=== PATIENT | female | born 1935 | race Caucasian/White ===

== ENCOUNTER 2017-06-06 07:14 | Inpatient (IN) | payer OTHER, MEDICARE ==
[2017-06-06] VITALS (15 sets, daily range): BP systolic 111–148; BP diastolic 60–91; PULSE 51–100; RESP 16–20; TEMP 95.7–97.7; O2SAT 93–98
[~2017-06-06] VITALS: Ht 162.6 cm; Wt 58.9 kg
[~2017-06-06 07:14] MED LIST: ASPI81TA82 PO; CEFU1TAB43 PO; COUM2TAB PO; FOLI1 PO; HYDR12.56 PO; METO50TA PO; NORV2.5T11 PO; SIMV20 PO; THIA100T PO
[2017-06-06] MEDS ORDERED: AMLO5 PO (07:32)
[2017-06-06] MEDS ORDERED: ZOCO20TA PO (07:32)
[2017-06-06] MEDS ORDERED: WARF4TAB51 PO (07:32)
[2017-06-06 07:44] LABS: AUTOMATED NEUTROPHIL # 7.3 TH/MM3 (1.8-7.7); BASOPHIL # 0.2 TH/MM3 (0-0.2); BASOPHIL % 2.5 % (0.0-2.0); EOSINOPHIL # 0.1 TH/MM3 (0-0.4); HEMATOCRIT 37.1 % (35.0-46.0); HEMO FLAGS DIFF FINAL; LYMPH % 15.8 % (9.0-44.0); LYMPHOCYTE # 1.5 TH/MM3 (1.0-4.8); MEAN CELL VOLUME 90.3 FL (80.0-100.0); MEAN CORPUSCULAR HEMOGLOBIN 29.2 PG (27.0-34.0); MEAN CORPUSCULAR HGB CONC 32.4 % (32.0-36.0); MONO % 6.4 % (0.0-8.0); NEUT % 74.3 % (16.0-70.0); PLATELET COUNT 278 TH/MM3 (150-450); RED BLOOD COUNT 4.11 MIL/MM3 (4.00-5.30); RED CELL DISTRIBUTION WIDTH 14.6 % (11.6-17.2); WHITE BLOOD COUNT 9.7 TH/MM3 (4.0-11.0)
[2017-06-06 07:51] LABS: CHLORIDE 92 MEQ/L (98-107); POTASSIUM 3.9 MEQ/L (3.5-5.1); SODIUM (NA) 131 MEQ/L (136-145)
[2017-06-06 07:55] LABS: ANION GAP 5 MEQ/L (5-15); BICARBONATE 33.9 MEQ/L (21.0-32.0); BLOOD UREA NITROGEN 36 MG/DL (7-18)
[2017-06-06 07:57] LABS: APTT (PATIENT) 59.9 SEC (24.3-30.1); PROTHROMBIN TIME - PATIENT 157.1 SEC (9.8-11.6)
--- NOTE | 2017-06-06 07:57 | PD ---
HPI Chief Complaint: Abnormal Results Time Seen by Provider: 07:31 Travel History International Travel<30 days: No Contact w/Intl Traveler<30days: No Traveled to known affect area: No History of Present Illness HPI Patient is an 82 year old female who comes in with her because she was told by her doctor that her INR was high. She is on Coumadin due to heart surgery she had in the past, per patient. She says she is also concerned that she may have an infection of her right leg. She says both legs have been red since her surgery 8 years ago, but recently she has had pain and oozing from the right leg. She did fall yesterday and the paramedics came to assess her, but she chose not to come to the hospital. She says she falls often. She reports hitting her right arm. She denies hitting her head or any LOC. She denies nausea or vomiting. She denies chest pain. She says she has chronic shortness of breath and this has not worsened. She denies any bleeding other then from her right leg. PFSH Past Medical History Hx Anticoagulant Therapy: Yes Arthritis: Yes Blood Disorders: No Anxiety: Yes Cancer: No Cardiac Catheterization: Yes Cardiovascular Problems: No High Cholesterol: Yes Coronary Artery Disease: Yes Dementia: Yes Diminished Hearing: No Endocrine: No Genitourinary: No Hypertension: Yes Immune Disorder: No Musculoskeletal: No Neurologic: No Psychiatric: No Reproductive: No Respiratory: No Tetanus Vaccination: > 5 Years Influenza Vaccination: No ?: Not Tubal Ligation: Yes Past Surgical History Abdominal Surgery: No Appendectomy: Yes Cardiac Surgery: Yes (2-VALVE REPLACEMENT) Coronary Artery Bypass Graft: Yes Ear Surgery: No Endocrine Surgery: No Eye Surgery: Yes (both eyes- cataracts) Genitourinary Surgery: No Gynecologic Surgery: No Hysterectomy: Yes Oral Surgery: No Pacemaker: No Thoracic Surgery: No Tonsillectomy: Yes Other Surgery: Yes Social History Alcohol Use: Yes (1-2 COCKTAILS/DAY STATES VODKA) Tobacco Use: No (QUIT 2006, 1/2 PACK A DAY) Substance Use: No Allergies-Medications (Allergen,Severity, Reaction): Coded Allergies: diatrizoate meglumine (Unverified Allergy, Severe, 06/06/17) gadobenic acid (Unverified Allergy, Severe, 06/06/17) gadodiamide (Unverified Allergy, Severe, 06/06/17) gadoteridol (Unverified Allergy, Severe, 06/06/17) iodixanol (Unverified Allergy, Severe, 06/06/17) iohexol (Unverified Allergy, Severe, 06/06/17) benazepril (Unverified Allergy, Mild, RESPIRATORY, 06/06/17) captopril (Unverified Allergy, Mild, RESPIRATORY, 06/06/17) enalaprilat (Unverified Allergy, Mild, RESPIRATORY, 06/06/17) fosinopril (Unverified Allergy, Mild, RESPIRATORY, 06/06/17) lisinopril (Unverified Allergy, Mild, RESPIRATORY, 06/06/17) quinapril (Unverified Allergy, Mild, RESPIRATORY, 06/06/17) Reported Meds & Prescriptions Reported Meds & Active Scripts Active Reported Norvasc (Amlodipine Besylate) 5 Mg Tab 5 Mg PO DAILY Zocor (Simvastatin) 20 Mg Tab 20 Mg PO DAILY Warfarin 2 Mg Tab 2 Mg PO DAILY Review of Systems Except as stated in HPI: all other systems reviewed are Neg General / Constitutional: No: Fever, Chills Eyes: No: Blurred Vision HENT: No: Headaches, Lightheadedness Cardiovascular: No: Chest Pain or Discomfort Respiratory: Positive: Shortness of Breath, No: Cough Gastrointestinal: No: Nausea, Vomiting, Abdominal Pain Genitourinary: No: Dysuria Musculoskeletal: Positive: Edema, Pain Skin: Positive Change in Pigmentation, Positive Lesions Neurologic: Positive: Weakness, No: Dizziness Physical Exam Narrative GENERAL: Awake and alert, in no acute distress. SKIN: Erythema of both legs from the knees down through her feet. Several oozing lesions to the right larson. No abscess. Large ecchymosis of the left humerus. HEAD: Atraumatic. Normocephalic. EYES: Pupils equal and round and reactive. No scleral icterus. EOMI. ENT: Mucous membranes pink and moist. NECK: Trachea midline. No JVD. CARDIOVASCULAR: Regular rate and rhythm. No murmur appreciated. RESPIRATORY: No accessory muscle use. Clear to auscultation. Breath sounds equal bilaterally. GASTROINTESTINAL: Abdomen soft, non-tender, nondistended. MUSCULOSKELETAL: No obvious deformities. No clubbing. No cyanosis. 2+ pitting edema bilateral lower extremities. Pedal pulses intact. NEUROLOGICAL: Awake and alert. No obvious cranial nerve deficits. Motor grossly within normal limits. Normal speech. PSYCHIATRIC: Appropriate mood and affect; insight and judgment normal. Data Data Last Documented VS Vital Signs Date Time Temp Pulse Resp B/P (MAP) Pulse Ox O2 Delivery O2 Flow Rate FiO2 06/06/17 10:00 56 16 111/70 (84) 97 Room Air 06/06/17 07:22 97.6 Orders Orders Iv Access Insert/Monitor (06/06/17 07:31) Complete Blood Count With Diff (06/06/17 07:31) Comprehensive Metabolic Panel (06/06/17 07:31) Electrocardiogram (06/06/17 ) Ct Brain W/O Iv Contrast(Rout) (06/06/17 ) Chest, Single Ap (06/06/17 ) Act Partial Throm Time (Ptt) (06/06/17 07:31) Prothrombin Time / Inr (Pt) (06/06/17 07:31) Urinalysis - C+S If Indicated (06/06/17 07:31) B-Type Natriuretic Peptide (06/06/17 07:31) Troponin I (06/06/17 07:31) Humerus (Min 2vws) (06/06/17 ) Phytonadione Inj (Vitamin K Inj) (06/06/17 08:15) Clindamycin Inj (Cleocin Inj) (06/06/17 08:45) Urine Culture (06/06/17 09:00) Type And Screen (06/06/17 09:14) Fresh Frozen Plasma (Ffp) (06/06/17 09:14) Blood Product Administration (06/06/17 09:14) Sodium Chlor 0.9% 250 Ml Inj (Ns 250 Ml (06/06/17 09:15) Admit Order (Ed Use Only) (06/06/17 ) Labs Laboratory Tests Test 06/06/17 07:35 06/06/17 09:00 White Blood Count 9.7 TH/MM3 Red Blood Count 4.11 MIL/MM3 Hemoglobin 12.0 GM/DL Hematocrit 37.1 % Mean Corpuscular Volume 90.3 FL Mean Corpuscular Hemoglobin 29.2 PG Mean Corpuscular Hemoglobin Concent 32.4 % Red Cell Distribution Width 14.6 % Platelet Count 278 TH/MM3 Mean Platelet Volume 7.6 FL Neutrophils (%) (Auto) 74.3 % Lymphocytes (%) (Auto) 15.8 % Monocytes (%) (Auto) 6.4 % Eosinophils (%) (Auto) 1.0 % Basophils (%) (Auto) 2.5 % Neutrophils # (Auto) 7.3 TH/MM3 Lymphocytes # (Auto) 1.5 TH/MM3 Monocytes # (Auto) 0.6 TH/MM3 Eosinophils # (Auto) 0.1 TH/MM3 Basophils # (Auto) 0.2 TH/MM3 CBC Comment DIFF FINAL Differential Comment Prothrombin Time 157.1 SEC Prothromb Time International Ratio 12.7 RATIO Activated Partial Thromboplast Time 59.9 SEC Blood Urea Nitrogen 36 MG/DL Creatinine 2.00 MG/DL Random Glucose 84 MG/DL Total Protein 6.4 GM/DL Albumin 2.7 GM/DL Calcium Level 8.7 MG/DL Alkaline Phosphatase 90 U/L Aspartate Amino Transf (AST/SGOT) 17 U/L Alanine Aminotransferase (ALT/SGPT) 12 U/L Total Bilirubin 0.7 MG/DL Sodium Level 131 MEQ/L Potassium Level 3.9 MEQ/L Chloride Level 92 MEQ/L Carbon Dioxide Level 33.9 MEQ/L Anion Gap 5 MEQ/L Estimat Glomerular Filtration Rate 24 ML/MIN Troponin I 0.02 NG/ML B-Type Natriuretic Peptide 3895 PG/ML Urine Collection Type CLEAN CATCH Urine Color YELLOW Urine Turbidity CLEAR Urine pH 5.5 Urine Specific Barnwell 1.023 Urine Protein TRACE mg/dL Urine Glucose (UA) NEG mg/dL Urine Ketones TRACE mg/dL Urine Occult Blood LARGE Urine Nitrite NEG Urine Bilirubin NEG Urine Leukocyte Esterase TRACE Urine RBC 10-14 /hpf Urine WBC 20-24 /hpf Urine WBC Clumps FEW Urine Squamous Epithelial Cells 6-8 /hpf Urine Renal Epithelial Cells > 8 /hpf Urine Bacteria FEW /hpf Microscopic Urinalysis Comment CULTURE INDICATED Urine Collection Time 09:00 [facility] Medical Decision Making Medical Screen Exam Complete: Yes Emergency Medical Condition: Yes Medical Record Reviewed: Yes Interpretation(s) ECG shows sinus bradycardia at 52. No KRYSTINA elevation, normal intervals. Differential Diagnosis UTI vs cellulitis vs coagulopathy Narrative Course Patient is an 82-year-old female who comes in because she was told her INR is high. She has not noticed any bleeding. She does have a large area of ecchymosis on her right arm from falling yesterday. IV established, labs sent. Labs show an INR of 12.7. Hemoglobin is within in normal limits. CT head performed shows no bleeding, no acute abnormalities. Last 24 hours Impressions Humerus X-Ray 06/06/17 0000 Signed Impressions: Service Date/Time: Tuesday, June 06, 2017 07:59 - CONCLUSION: 1. High riding humeral head consistent with rotator cuff injury. 2. Osteopenia. 3. No acute abnormality. Abdiel Nelson Jr., MD Head CT 06/06/17 0000 Signed Impressions: Service Date/Time: Tuesday, June 06, 2017 08:11 - CONCLUSION: No acute disease. Abdiel Nelson Jr., MD Chest X-Ray 06/06/17 0000 Signed Impressions: Service Date/Time: Tuesday, June 06, 2017 07:59 - CONCLUSION: 1. Probable trace right pleural effusion versus pleural thickening. 2. Minimal atelectasis/scarring in the left midlung zone. Masood Poole MD Urine shows a large amount of blood. Patient given a dose of vitamin K. We'll transfuse FFP for Coumadin reversal. We will transfuse slowly to check for fluid overload. Patient currently has edema of her legs, but lungs are clear. Patient will be admitted for further management. Given a dose of clindamycin for cellulitis of her right leg. Diagnosis Primary Impression: Warfarin-induced coagulopathy Additional Impressions: Hematuria Qualified Codes: R31.9 - Hematuria, unspecified Cellulitis Qualified Codes: L03.115 - Cellulitis of right lower limb Admitting Information Admitting Physician Requests: Admit Condition: Stable Farrah Ortiz MD Jun 06, 2017 07:57
[2017-06-06 07:58] LABS: ALT (GPT) 12 U/L (10-53); AST (GOT) 17 U/L (15-37); GLOMERULAR FILTRATION RATE 24 ML/MIN (>89)
[2017-06-06 08:00] LABS: TOTAL BILIRUBIN ADULT 0.7 MG/DL (0.2-1.0)
[2017-06-06 08:01] LABS: ALKALINE PHOSPHATASE 90 U/L (45-117)
[2017-06-06 08:12] LABS: INTERNATIONAL NORMALIZED RATIO 12.7 RATIO
[2017-06-06] MEDS ORDERED: PHYTONADIONE 10 MG/ML VIAL SQ ONE (08:15)
--- NOTE | 2017-06-06 08:19 | RADRPT ---
EXAM DATE/TIME: 06/06/2017 07:59 [facility] COMPARISON: No previous studies available for comparison. INDICATIONS : Pain post fall. MEDICAL HISTORY : Arthritis. Hypercholesterolemia. Hypertension. CAD. Dementia. SURGICAL HISTORY : Tubal ligation. Tonsillectomy. Appendectomy. Cardiac cath. CABG. Hysterectomy. ENCOUNTER: Initial ACUITY: 3 days PAIN SCORE: 5/10 LOCATION: chest FINDINGS: Linear parenchymal opacities in the left midlung. Slight blunting of the right costophrenic angle. Po stsurgical features of median sternotomy with prior cardiac valve replacement. Cardiomediastinal cont ours are within normal limits. Bony thorax is intact. CONCLUSION: 1. Probable trace right pleural effusion versus pleural thickening. 2. Minimal atelectasis/scarring in the left midlung zone. Masood Poole MD on June 06, 2017 at 8:16 Board Certified Radiologist. This report was verified electronically.
--- NOTE | 2017-06-06 08:23 | RADRPT ---
EXAM DATE/TIME: 06/06/2017 07:59 [facility] COMPARISON: No previous studies available for comparison. INDICATIONS : Right humerus pain/bruising post fall. MEDICAL HISTORY : Hypercholesterolemia. Arthritis. Hypertension. CAD. Dementia. SURGICAL HISTORY : Tubal ligation. Tonsillectomy. Appendectomy. Hysterectomy. CABG. Cardiac cath. ENCOUNTER: Initial ACUITY: 3 days PAIN SCORE: 6/10 LOCATION: Right shoulder FINDINGS: 2 views of the right humerus show osteopenia. A high riding humeral head with subacromial space narro wing and erosive changes involving the inferior margin of the acromium. No fractures or dislocations. Soft tissues are unremarkable. CONCLUSION: 1. High riding humeral head consistent with rotator cuff injury. 2. Osteopenia. 3. No acute abnormality. Abdiel Nelson Jr., MD on June 06, 2017 at 8:20 Board Certified Radiologist. This report was verified electronically.
--- NOTE | 2017-06-06 08:25 | RADRPT ---
EXAM DATE/TIME: 06/06/2017 08:11 [facility] COMPARISON: CT BRAIN W/O CONTRAST, June 02, 2014, 19:45. INDICATIONS : Fell yesterday. RADIATION DOSE: 62.54 CTDIvol (mGy) MEDICAL HISTORY : Hypertension. Cardiovascular disease SURGICAL HISTORY : CABG Hysterectomy.Tubal ligation.Appendectomy. ENCOUNTER: Initial ACUITY: 1 day PAIN SCALE: 0/10 LOCATION: cranial TECHNIQUE: Multiple contiguous axial images were obtained of the head. Using automated exposure control and adj ustment of the mA and/or kV according to patient size, radiation dose was kept as low as reasonably a chievable to obtain optimal diagnostic quality images. DICOM format image data is available electro nically for review and comparison. FINDINGS: CEREBRUM: Atrophy. The ventricles are normal for age. No evidence of midline shift, mass lesion, hemorrhage or acute infarction. No extra-axial fluid collections are seen. POSTERIOR FOSSA: The cerebellum and brainstem are intact. The 4th ventricle is midline. The cerebellopontine angle i s unremarkable. EXTRACRANIAL: The visualized portion of the orbits is intact. SKULL: The calvaria is intact. No evidence of skull fracture. CONCLUSION: No acute disease. Abdiel Nelson Jr., MD on June 06, 2017 at 8:22 Board Certified Radiologist. This report was verified electronically.
[2017-06-06] MEDS ORDERED: CLINDAMYCIN INJ 600 MG in SODIUM CHLORIDE 0.9% INJ 100 ML IV ONE (08:45)
[2017-06-06 09:07] LABS: BLOOD, URINE LARGE (NEG); GLUCOSE,URINE NEG (NEG); KETONE, URINE TRACE mg/dL (NEG); NITRITE,URINE NEG (NEG); PH, URINE 5.5 (5.0-8.5)
[2017-06-06 09:10] LABS: METHOD OF COLLECTION CLEAN CATCH; URINE COLOR YELLOW (YELLW/STRAW)
[2017-06-06 09:11] LABS: BACTERIA, URINE FEW /hpf; COMMENT (UR) CULTURE INDICATED; CULTURE IF INDICATED CULTURE INDICATED; RENAL EPITHELIAL CELLS > 8 /hpf
[2017-06-06] MEDS ORDERED: SODIUM CHLOR 0.9% 250 ML INJ 250 ML IV ONE (09:15)
--- NOTE | 2017-06-06 14:35 | HHI.HP ---
[facility] Primary Care Physician Venus Anaya MD Admission Diagnosis Coagulopathy, cellulitis Diagnoses: (1) Warfarin-induced coagulopathy Diagnosis: Principal Chief Complaint: Told to come in by her primary medical doctor Travel History International Travel<30 Days: No Contact w/Intl Traveler <30 Da: No Traveled to Known Affected Are: No History of Present Illness Written by Guillermo [place], acting as scribe for Dr. Delgado on 06/06/17 at 14:17. This is an 82-year-old female with known history of hypertension, hyperlipidemia , coronary disease, history of endocarditis, status post bovine mitral/aortic valve replacement, chronic obstructive pulmonary disease who presented to the hospital at the request of her primary medical doctor because of abnormal laboratory studies. Patient was in her normal state of health and was evaluated for the first time by Dr. Anaya on Sunday, due to recent change in her primary medical doctor's office from Dr. Gavin. At that time she had laboratory studies performed and was notified and she needs a follow-up with dermatology because of her chronic lower extremity excoriations. Patient lab work came back and the patient was called at her home and was told to go to the emergency department last night because of elevated Coumadin level. The patient came to emergency department today and was found to have an INR of 12.7. Patient was given vitamin K in the emergency department and ER physician transfuse 4 units of FFP. Patient does not have any signs of any active bleeding. Denies any bleeding got, dark color stools, hematuria. Patient is rather deconditioned and only walks at home with a walker. She does have recurrent falls at home. She did fall yesterday on her left arm with significant ecchymosis. Patient states that her right leg has always been weaker than her left leg. Patient and indicate that she is on Coumadin because of her mitral/aortic Bovine heart valve replacement. Patient does have significant excoriations and erythema noted in the bilateral lower extremities, right greater than left. Patient states that she scratches her skin all the time and causes multiple excoriations. Pain is no different than usual. They do indicate that there is increased clear drainage of the right lower extremity. Review of Systems Integumentary: COMPLAINS OF: Abnormal pigmentation, Pruritus Hematologic/lymphatic: COMPLAINS OF: Bruising Except as stated in HPI: all other systems reviewed are Neg Past Family Social History Past Medical History Hypertension Hyperlipidemia Coronary artery disease History of endocarditis Dementia Anxiety Neuropathy History cervical cancer Past Surgical History Tubal ligation Hysterectomy Coronary bypass surgery Mitral/aortic valve replacement with bovine heart valve Appendectomy Tonsillectomy Reported Medications Reported Meds & Active Scripts Active Reported Norvasc (Amlodipine Besylate) 5 Mg Tab 5 Mg PO DAILY Zocor (Simvastatin) 20 Mg Tab 20 Mg PO DAILY Warfarin 2 Mg Tab 2 Mg PO DAILY Allergies: Coded Allergies: diatrizoate meglumine (Unverified Allergy, Severe, 06/06/17) gadobenic acid (Unverified Allergy, Severe, 06/06/17) gadodiamide (Unverified Allergy, Severe, 06/06/17) gadoteridol (Unverified Allergy, Severe, 06/06/17) iodixanol (Unverified Allergy, Severe, 06/06/17) iohexol (Unverified Allergy, Severe, 06/06/17) benazepril (Unverified Allergy, Mild, RESPIRATORY, 06/06/17) captopril (Unverified Allergy, Mild, RESPIRATORY, 06/06/17) enalaprilat (Unverified Allergy, Mild, RESPIRATORY, 06/06/17) fosinopril (Unverified Allergy, Mild, RESPIRATORY, 06/06/17) lisinopril (Unverified Allergy, Mild, RESPIRATORY, 06/06/17) quinapril (Unverified Allergy, Mild, RESPIRATORY, 06/06/17) Family History Reviewed and unknown, patient is adopted Social History Patient quit smoking in 2006, she did smoke a half a pack a cigarettes a day since she is 42 years old. She does drink 1-25 Highballs daily, denies any illicit drug Physical Exam Vital Signs Vital Signs Date Time Temp Pulse Resp B/P (MAP) Pulse Ox O2 Delivery O2 Flow Rate FiO2 06/06/17 13:45 95.7 57 16 137/81 (99) 97 06/06/17 12:14 97.5 51 16 148/73 96 06/06/17 12:00 97.5 54 16 135/75 98 06/06/17 11:44 97.5 89 16 140/91 96 06/06/17 10:00 56 16 111/70 (84) 97 Room Air 06/06/17 09:30 67 16 96 Room Air 06/06/17 09:15 100 16 140/70 (93) 98 Room Air 06/06/17 08:15 66 16 130/70 (90) 98 Room Air 06/06/17 07:32 56 16 95 Room Air 06/06/17 07:22 97.6 71 16 126/66 (86) 93 Physical Exam GENERAL: Well-developed, well-nourished, in no acute distress. alert and orientated HEENT: Head is normocephalic without any lesions or masses noted. Facial features are symmetric. Eyes: Pupils equal round reactive to light. Extraocular muscles are intact. Conjunctivae were clear. Oropharyngeal: Pharynx without any erythema edema. Tongue is midline without deviation. Buccal mucosa is moist without any masses or lesions NECK: Supple without any masses. Trachea midline no deviation. No JVD, no bruits are appreciated CARDIAC: Regular rhythm, regular rate. S1/S2 are heard. No murmurs gallops or rubs. LUNGS: Clear to auscultation bilaterally. No wheeze, rhonchi or rales. No use of accessory muscles on inspiration or expiration. ABDOMEN: Soft, nontender. Nondistended. Bowel sounds heard in all 4 quadrants. No organomegaly or masses. Negative rebound, negative guarding EXTREMITIES: No edema, pulses are equal bilaterally. No cyanosis or clubbing. Right extremity has significant bruising noted from humeral head down to the mid forearm NEUROLOGY: Mood and affect appear appropriate. Cranial nerves II through XII grossly intact. Muscle strength 5/5 in upper and 4/5 in lower extremities bilaterally. Deep tendon reflexes are 2+ in upper and lower extremities bilaterally. Laboratory Laboratory Tests Test 06/06/17 07:35 06/06/17 09:00 White Blood Count 9.7 Red Blood Count 4.11 Hemoglobin 12.0 Hematocrit 37.1 Mean Corpuscular Volume 90.3 Mean Corpuscular Hemoglobin 29.2 Mean Corpuscular Hemoglobin Concent 32.4 Red Cell Distribution Width 14.6 Platelet Count 278 Mean Platelet Volume 7.6 Neutrophils (%) (Auto) 74.3 Lymphocytes (%) (Auto) 15.8 Monocytes (%) (Auto) 6.4 Eosinophils (%) (Auto) 1.0 Basophils (%) (Auto) 2.5 Neutrophils # (Auto) 7.3 Lymphocytes # (Auto) 1.5 Monocytes # (Auto) 0.6 Eosinophils # (Auto) 0.1 Basophils # (Auto) 0.2 CBC Comment DIFF FINAL Differential Comment Prothrombin Time 157.1 Prothromb Time International Ratio 12.7 Activated Partial Thromboplast Time 59.9 Blood Urea Nitrogen 36 Creatinine 2.00 Random Glucose 84 Total Protein 6.4 Albumin 2.7 Calcium Level 8.7 Alkaline Phosphatase 90 Aspartate Amino Transf (AST/SGOT) 17 Alanine Aminotransferase (ALT/SGPT) 12 Total Bilirubin 0.7 Sodium Level 131 Potassium Level 3.9 Chloride Level 92 Carbon Dioxide Level 33.9 Anion Gap 5 Estimat Glomerular Filtration Rate 24 Troponin I 0.02 B-Type Natriuretic Peptide 3895 Urine Collection Type CLEAN CATCH Urine Color YELLOW Urine Turbidity CLEAR Urine pH 5.5 Urine Specific [place] 1.023 Urine Protein TRACE Urine Glucose (UA) NEG Urine Ketones TRACE Urine Occult Blood LARGE Urine Nitrite NEG Urine Bilirubin NEG Urine Leukocyte Esterase TRACE Urine RBC 10-14 Urine WBC 20-24 Urine WBC Clumps FEW Urine Squamous Epithelial Cells 6-8 Urine Renal Epithelial Cells > 8 Urine Bacteria FEW Microscopic Urinalysis Comment CULTURE INDICATED Urine Collection Time 09:00 Date/Time Source Procedure Growth Status 06/06/17 09:00 Urine Clean Catch Urine Culture Pending Received Result Diagram: 06/06/17 0735 06/06/17 0735 Imaging Last Impressions Humerus X-Ray 06/06/17 0000 Signed Impressions: Service Date/Time: Tuesday, June 06, 2017 07:59 - CONCLUSION: 1. High riding humeral head consistent with rotator cuff injury. 2. Osteopenia. 3. No acute abnormality. Abdiel Nelson Jr., MD Head CT 06/06/17 0000 Signed Impressions: Service Date/Time: Tuesday, June 06, 2017 08:11 - CONCLUSION: No acute disease. Abdiel Nelson Jr., MD Chest X-Ray 06/06/17 0000 Signed Impressions: Service Date/Time: Tuesday, June 06, 2017 07:59 - CONCLUSION: 1. Probable trace right pleural effusion versus pleural thickening. 2. Minimal atelectasis/scarring in the left midlung zone. Masood Poole MD [place] VTE Risk Assessment Caprini VTE Risk Assessment: Mod/High Risk (score >= 2) Caprini Risk Assessment Model Point Value = 1 Point Value = 2 Point Value = 3 Point Value = 5 Age 41-60 Minor surgery BMI > 25 kg/m2 Swollen legs Varicose veins or History of unexplained or recurrent spontaneous Oral contraceptives or hormone replacement Sepsis (< 1 month) Serious lung disease, including pneumonia (< 1 month) Abnormal pulmonary function Acute myocardial infarction Congestive heart failure (< 1 month) History of inflammatory bowel disease Medical patient at bed rest Age 61-74 Arthroscopic surgery Major open surgery (> 45 min) Laparoscopic surgery (> 45 min) Malignancy Confined to bed (> 72 hours) Immobilizing plaster cast Central venous access Age >= 75 History of VTE Family history of VTE Factor V Leiden Prothrombin [id number] Lupus anticoagulant Anticardiolipin antibodies Elevated serum homocysteine Heparin-induced thrombocytopenia Other congenital or acquired thrombophilia Stroke (< 1 month) Elective arthroplasty Hip, pelvis, or leg fracture Acute spinal cord injury (< 1 month) Prophylaxis Regimen Total Risk Factor Score Risk Level Prophylaxis Regimen 0-1 Low Early ambulation 2 Moderate Order ONE of the following: *Sequential Compression Device (SCD) *Heparin 5000 units SQ BID 3-4 Higher Order ONE of the following medications: *Heparin 5000 units SQ TID *Enoxaparin/Lovenox 40 mg SQ daily (WT < 150 kg, CrCl > 30 mL/min) *Enoxaparin/Lovenox 30 mg SQ daily (WT < 150 kg, CrCl > 10-29 mL/min) *Enoxaparin/Lovenox 30 mg SQ BID (WT < 150 kg, CrCl > 30 mL/min) AND/OR *Sequential Compression Device (SCD) 5 or more Highest Order ONE of the following medications: *Heparin 5000 units SQ TID (Preferred with Epidurals) *Enoxaparin/Lovenox 40 mg SQ daily (WT < 150 kg, CrCl > 30 mL/min) *Enoxaparin/Lovenox 30 mg SQ daily (WT < 150 kg, CrCl > 10-29 mL/min) *Enoxaparin/Lovenox 30 mg SQ BID (WT < 150 kg, CrCl > 30 mL/min) AND *Sequential Compression Device (SCD) Assessment and Plan Assessment and Plan Coumadin coagulopathy Status post vitamin K and fresh frozen plasma per ER physician Continue monitor PT/INR Need to discuss with patient's lawn mower sharpener Dr. Mann to see if patient still a candidate for anticoagulation due to recurrent falls, injuries, daily alcohol use Dr. Mann relayed that she reviewed patient's records, was notified of the patient's INR, Coumadin coagulopathy, recurrent falls at home, recurrent injuries, chronic alcohol use. She states that the patient should be reversed completely and discontinue Coumadin at this time due to increased risk factors. Bilateral lower extremity excoriations, chronic dermatitis No signs of sepsis or infection at this time. Patient is afebrile, no leukocytosis, no tachycardia, no abscesses, no exudates Status post clindamycin in emergency department Wound care nurse evaluation for daily dressings Recommend continue follow-up with the percussion instrument tuner appointment as an outpatient Hypertension, hyperlipidemia, coronary artery disease, chronic atrial fibrillation Continue home medications Deconditioning, recurrent falls at home, unable to ambulate without assistive device Physical therapy evaluation Possible rehabilitation facility placement DVT prevention Patient has coagulopathy at this time, continue monitor INR This note was transcribed by delgado [place]. I, Spencer Delgado, personally performed the history, physical exam, and medical decision making; and confirmed the accuracy of information in the transcribed note. Authenticated by Spencer Delgado at 19:50 on 06/06/17. I independently reviewed EKG which shows mild sinus bradycardia. Physician Certification 2 Midnight Certification Type: Continued Stay Order for Inpatient Services The services are ordered in accordance with Medicare regulations or non- Medicare payer requirements, as applicable. In the case of services not specified as inpatient-only, they are appropriately provided as inpatient services in accordance with the 2-midnight benchmark. Estimated LOS (days): 1 days is the estimated time the patient will need to remain in the hospital, assuming treatment plan goals are met and no additional complications. Post-Hospital Plan: Not yet determined Guillermo [place] Jun 06, 2017 14:35 Spencer Delgado MD Jun 06, 2017 19:11
--- NOTE | 2017-06-06 14:51 | EKG ---
Date Performed: 06/06/2017 Time Performed: 07:41:08 PTAGE: 82 years EKG: SINUS BRADYCARDIA BORDERLINE RIGHT AXIS DEVIATION MINIMAL ST DEPRESSION BORDERLINE ECG PREVIOUS TRACING : 04/14/2015 12.10 Compared to prior tracing no significant change DOCTOR: Galileo Bruno Interpretating Date/Time 06/06/2017 14:51:34
[2017-06-07 00:35] VITALS: PULSE 59
[2017-06-07 02:39] VITALS: BP 132/80; PULSE 60; RESP 20; TEMP 96; O2SAT 92
[2017-06-07 04:00] VITALS: BP 136/82; PULSE 66; RESP 20; TEMP 96.2; O2SAT 92
[2017-06-07] MEDS ORDERED: MORPHINE SULFATE 2 MG/ML INJ IV PUSH PRN (06:00)
[2017-06-07 06:36] LABS: INTERNATIONAL NORMALIZED RATIO 1.7 RATIO; PROTHROMBIN TIME - PATIENT 19.2 SEC (9.8-11.6)
[2017-06-07 08:36] VITALS: BP 104/70; PULSE 64; RESP 16; TEMP 97.5; O2SAT 94
[2017-06-07] MEDS ORDERED: INFLUENZA VIRUS VACCINE (QUADRIVALENT) 0.5 ML SYR IM ONE (10:00)
--- NOTE | 2017-06-07 10:41 | PD.WCN.NOT ---
Wound Consult Description: Received consult for R leg wound management from Doctor Delgado Communicated with: PAULY Mendieta [facility] and Doctor Delgado Recommendation: Please cleanse bilateral legs with soap and water daily. Apply Lac hydrin lotion as directed. Cover open wounds to R leg with single layer xeroform just over open wound beds and cover with ABD pad, secured with rolled gauze and tape change dressings daily or PRN if saturated or dislodged. Elevate BLE with pillows to reduce edema while in bed or in chair. Please obtain ABIs. Additional Information: Patient seen on the 3rd floor [facility] for wound management of R leg. Patient is laying in bed for wound assessment with BLE elevated on pillow. Bilateral legs present with non pitting edema, erythematous, dry, scaly,wrinkled,skin.Skin is also hairless.Pedal pulses are weak. Diffuse small open wounds and scabs are noted to R lower extremity. Wound beds present with mostly ~60% yellow exudate and ~40% pink tissue that is dry. One wound located on R lateral calf presents with eschar and measures ~2 cm x ~2cm. Cleansed all open wounds and bilateral legs with wound cleanser and pat dry. Applied Xeroform in a single layer over dry open wounds and covered with ABD pads, secured dressing with rolled gauze and tape. Findings indicate a possible venous and arterial mixed etiology. Cleo Montemayor [facility] Jun 07, 2017 10:41
[2017-06-07 12:00] VITALS: BP 82/54; PULSE 129; RESP 16; TEMP 96.7; O2SAT 91
--- NOTE | 2017-06-07 15:52 | HHI.FF ---
Face to Face Verification Diagnosis: (1) Debility (2) Warfarin-induced coagulopathy (3) Generalized weakness (4) Multiple falls Physical Therapy Order: Evaluate and Treat Occupational Therapy Order: Evaluate and Treat, Improve ADL Speech Therapy Order: To Improve: Cognitive skills Home Health Aide Order: To Assist In: Bathing and personal care Line Leader Order: To Evaluate: Living conditions/environment, Support services Order: To Provide: Long range planning, Community services I have seen patient Jane Flores on 06/07/17. My clinical findings support the need for the requested home health care services because: Med compliance is questionable Limited ability to care for self Need for psychosocial assistance Impaired cognition/judgement High risk of falls I certify that my clinical findings support that this patient is homebound because: Impaired cognitive ability/safety Unsteady gait/balance Unsafe to leave home unassisted Unable to use public transportation Spencer Delgado MD Jun 07, 2017 15:52
--- NOTE | 2017-06-07 16:30 | HHI.DS ---
Discharge Summary Admission Date Jun 06, 2017 at 10:00 Discharge Date: Jun 07, 2017 Admitting Diagnosis Coagulopathy, cellulitis (1) Warfarin-induced coagulopathy ICD Code: D69.9 - Warfarin-induced coagulopathy; T45.515A - Adverse effect of anticoagulants, initial encounter Diagnosis: Principal Status: Acute Procedures none Brief History - From Admission Written by Guillermo [place], acting as scribe for Dr. Delgado on 06/06/17 at 14:17. This is an 82-year-old female with known history of hypertension, hyperlipidemia , coronary disease, history of endocarditis, status post bovine mitral/aortic valve replacement, chronic obstructive pulmonary disease who presented to the hospital at the request of her primary medical doctor because of abnormal laboratory studies. Patient was in her normal state of health and was evaluated for the first time by Dr. Anaya on Sunday, due to recent change in her primary medical doctor's office from Dr. Gavin. At that time she had laboratory studies performed and was notified and she needs a follow-up with dermatology because of her chronic lower extremity excoriations. Patient lab work came back and the patient was called at her home and was told to go to the emergency department last night because of elevated Coumadin level. The patient came to emergency department today and was found to have an INR of 12.7. Patient was given vitamin K in the emergency department and ER physician transfuse 4 units of FFP. Patient does not have any signs of any active bleeding. Denies any bleeding got, dark color stools, hematuria. Patient is rather deconditioned and only walks at home with a walker. She does have recurrent falls at home. She did fall yesterday on her left arm with significant ecchymosis. Patient states that her right leg has always been weaker than her left leg. Patient and indicate that she is on Coumadin because of her mitral/aortic Bovine heart valve replacement. Patient does have significant excoriations and erythema noted in the bilateral lower extremities, right greater than left. Patient states that she scratches her skin all the time and causes multiple excoriations. Pain is no different than usual. They do indicate that there is increased clear drainage of the right lower extremity. CBC/BMP: 06/06/17 0735 06/06/17 0735 Significant Findings Laboratory Tests Test 06/06/17 07:35 06/06/17 09:00 06/07/17 05:58 Neutrophils (%) (Auto) 74.3 % (16.0-70.0) Basophils (%) (Auto) 2.5 % (0.0-2.0) Prothrombin Time 157.1 SEC (9.8-11.6) 19.2 SEC (9.8-11.6) Prothromb Time International Ratio 12.7 RATIO Activated Partial Thromboplast Time 59.9 SEC (24.3-30.1) Blood Urea Nitrogen 36 MG/DL (7-18) Creatinine 2.00 MG/DL (0.50-1.00) Albumin 2.7 GM/DL (3.4-5.0) Sodium Level 131 MEQ/L (136-145) Chloride Level 92 MEQ/L (98-107) Carbon Dioxide Level 33.9 MEQ/L (21.0-32.0) Estimat Glomerular Filtration Rate 24 ML/MIN (>89) B-Type Natriuretic Peptide 3895 PG/ML (0-100) Urine Ketones TRACE mg/dL (NEG) Urine Occult Blood LARGE (NEG) Urine Leukocyte Esterase TRACE (NEG) Urine RBC 10-14 /hpf (0-3) Urine WBC 20-24 /hpf (0-5) Urine WBC Clumps FEW (NONE) Urine Squamous Epithelial Cells 6-8 /hpf (0-5) Urine Bacteria FEW /hpf (NONE) Imaging Last Impressions Humerus X-Ray 06/06/17 Signed Impressions: Service Date/Time: Tuesday, June 06, 2017 07:59 - CONCLUSION: 1. High riding humeral head consistent with rotator cuff injury. 2. Osteopenia. 3. No acute abnormality. Abdiel Nelson Jr., MD Head CT 06/06/17 Signed Impressions: Service Date/Time: Tuesday, June 06, 2017 08:11 - CONCLUSION: No acute disease. Abdiel Nelson Jr., MD Chest X-Ray 06/06/17 0000 Signed Impressions: Service Date/Time: Tuesday, June 06, 2017 07:59 - CONCLUSION: 1. Probable trace right pleural effusion versus pleural thickening. 2. Minimal atelectasis/scarring in the left midlung zone. Masood Poole MD PE at Discharge Pt is ambulating with walker with assistance. unlabored breathing, in NAD, right leg wrapped Hospital Course Patient received IV vitamin K in the ER, was admitted to the floor. Cardiology was contacted via phone, stated that the patient was no longer a candidate for Coumadin therapy given her risk of falls and alcohol use. Her INR was reversed significantly within 24 hours to less than 2. Wound care was consulted, concluded mixed arterial and venous insufficiency and noted hemosiderin deposits on the leg. Xeroform dressings were started. Meanwhile physical therapy recommended that the patient undergo rehabilitation placement however the patient and the were very insistent on going home and were receptive to home care and therefore such arrangements were made. Patient has met maximum benefit from hospitalization and is clinically stable for discharge. Pt Condition on Discharge: Stable Discharge Disposition: Disch w/ Home Health Serv Discharge Time: > 30 minutes Discharge Instructions DIET: Follow Instructions for: As Tolerated, No Restrictions Activities you can perform: See Additionl Instruction Other Activity Instructions: Do not ambulate or transfer yourself without any assistance, use walker whenever ambulating. Follow up Referrals: Cardiology - 2 Weeks with Cat Mann MD PCP Follow-up - 1 Week Continued Medications: Amlodipine (Norvasc) 5 Mg Tab 5 MG PO DAILY for Blood Pressure Management, #30 TAB 0 Refills Simvastatin (Zocor) 20 Mg Tab 20 MG PO DAILY for Cholesterol Management, #30 TAB 0 Refills Spencer Delgado MD Jun 07, 2017 16:30
== END 2017-06-07 17:06 | disposition home health service (06) | DRG 813 ==
LOC: PHED 07:14 → PHEDA 10:00 → PH3A 12:34
PROVIDERS: ADMIT Hospitalist; ATTEND Hospitalist
PROC: 30253P1 (ICD-10-PCS; principal; 2017-06-06)
DX: D68.32 Hemorrhagic disorder due to extrinsic circulating anticoagulants (principal); L03.115 Cellulitis of right lower limb; F03.90 Unspecified dementia, unspecified severity, without behavioral disturbance, psychotic disturbance, mood disturbance, and anxiety; I48.2 Chronic atrial fibrillation; J44.9 Chronic obstructive pulmonary disease, unspecified; G62.9 Polyneuropathy, unspecified; I10 Essential (primary) hypertension; I25.10 Atherosclerotic heart disease of native coronary artery without angina pectoris; F41.9 Anxiety disorder, unspecified; R31.9 Hematuria, unspecified; T45.515A Adverse effect of anticoagulants, initial encounter; Y92.009 Unspecified place in unspecified non-institutional (private) residence as the place of occurrence of the external cause; Z79.01 Long term (current) use of anticoagulants; Z87.891 Personal history of nicotine dependence; E78.00 Pure hypercholesterolemia, unspecified; W19.XXXA Unspecified fall, initial encounter; Z95.3 Presence of xenogenic heart valve; R29.6 Repeated falls; Z85.41 Personal history of malignant neoplasm of cervix uteri; L30.9 Dermatitis, unspecified; I87.2 Venous insufficiency (chronic) (peripheral); Z95.1 Presence of aortocoronary bypass graft
CPT/HCPCS: 36430; 70450; 71010; 73060; 80053; 81001; 83880; 84484; 85025; 85610; 85730; 86850; 86900; 86901; 86927; 87086; 93005; 96365; 96372; J2270; J3430; P9017

== ENCOUNTER 2017-06-21 00:10 | Inpatient (IN) | payer OTHER, MEDICARE ==
[2017-06-21] VITALS (11 sets, daily range): BP systolic 97–153; BP diastolic 55–91; PULSE 60–84; RESP 16–20; TEMP 96.3–101.1; O2SAT 93–100
[~2017-06-21 00:10] MED LIST changes: +AMLO5 PO; -ASPI81TA82 PO; -CEFU1TAB43 PO; -COUM2TAB PO; -FOLI1 PO; -HYDR12.56 PO; -METO50TA PO; -NORV2.5T11 PO; -SIMV20 PO; -THIA100T PO; +WARF4TAB51 PO; +ZOCO20TA PO
--- NOTE | 2017-06-21 00:42 | PD ---
HPI Chief Complaint: AMS Time Seen by Provider: 00:21 Travel History International Travel<30 days: No Contact w/Intl Traveler<30days: No Traveled to known affect area: No History of Present Illness HPI 82-year-old female sent in from her detention for evaluation of depressed mental status and head injury. Apparently the patient fell out of her bed earlier today. She sustained a contusion and hematoma to her left forehead. Since then she has not been acting like herself. The patient is awake and alert on arrival to the emergency department. She is oriented to person and place. She denies any physical complaints. She denies head or neck pain. No chest pain or dyspnea. No abdominal pain. Chart review shows that the patient was admitted to the hospital on 06/06/17 for cellulitis. PFSH Past Medical History Hx Anticoagulant Therapy: Yes Arthritis: Yes Blood Disorders: No Anxiety: Yes Depression: Yes Cancer: Yes (cervical) Cardiac Catheterization: Yes Cardiovascular Problems: Yes High Cholesterol: Yes Chemotherapy: No Coronary Artery Disease: Yes Dementia: Yes Diminished Hearing: No Endocrine: No Genitourinary: No Hypertension: Yes Immune Disorder: No Kidney Stones: Yes (years ago) Musculoskeletal: No Neurologic: No Psychiatric: Yes Reproductive: No Respiratory: No Radiation Therapy: No Tubal Ligation: Yes Past Surgical History Abdominal Surgery: No Appendectomy: Yes Cardiac Surgery: Yes (2-VALVE REPLACEMENT and duo BYPAS) Coronary Artery Bypass Graft: Yes Ear Surgery: No Endocrine Surgery: No Eye Surgery: Yes (both eyes- cataracts) Genitourinary Surgery: No Gynecologic Surgery: No Hysterectomy: Yes Oral Surgery: No Pacemaker: No Thoracic Surgery: No Tonsillectomy: Yes Other Surgery: Yes Social History Alcohol Use: Yes (1-2 COCKTAILS/DAY STATES VODKA) Tobacco Use: No (QUIT 2006, 1/2 PACK A DAY) Substance Use: No Allergies-Medications (Allergen,Severity, Reaction): Coded Allergies: diatrizoate meglumine (Verified Allergy, Severe, 06/21/17) gadobenic acid (Verified Allergy, Severe, 06/21/17) gadodiamide (Verified Allergy, Severe, 06/21/17) gadoteridol (Verified Allergy, Severe, 06/21/17) iodixanol (Verified Allergy, Severe, 06/21/17) iohexol (Verified Allergy, Severe, 06/21/17) benazepril (Verified Allergy, Mild, RESPIRATORY, 06/21/17) captopril (Verified Allergy, Mild, RESPIRATORY, 06/21/17) enalaprilat (Verified Allergy, Mild, RESPIRATORY, 06/21/17) fosinopril (Verified Allergy, Mild, RESPIRATORY, 06/21/17) lisinopril (Verified Allergy, Mild, RESPIRATORY, 06/21/17) quinapril (Verified Allergy, Mild, RESPIRATORY, 06/21/17) Reported Meds & Prescriptions Reported Meds & Active Scripts Active Reported Citalopram (Citalopram Hydrobromide) 10 Mg Tab 10 Mg PO DAILY Magnesium Citrate 100 Mg Tab 100 Mg PO DAILY PRN Enema Disposable (Sodium Phosphates) 19 Gram-7 Gram/118 Ml Melita Mapap (Acetaminophen) 325 Mg Tab 325 Mg PO Q4-6H PRN Mapap (Acetaminophen) 325 Mg Tab 325 Mg PO Q4-6H PRN Zinc Sulfate 220 Mg Tab 220 Mg PO DAILY Vitamin C (Ascorbic Acid) 250 Mg Tab 500 Mg PO Vitamin C (Ascorbic Acid) 250 Mg Tab 250 Mg PO Oyster Shell Calcium (Calcium Carbonate-Cholecalciferol) 500-400 Mg-Unit Tab 1 Tab PO BID Naproxen 250 Mg Tab 250 Mg PO BID Multiple Vitamin 1 Tab 1 Tab PO DAILY Milk of Magnesia Liq (Magnesium Hydroxide) 400 Mg/5 Ml Susp 30 Ml PO ONCE Metoprolol Tartrate 100 Mg Tab 100 Mg PO BID Ammonium Lactate (Lactic Acid) 12 % Cre 1 Applic TOP BID APPLY TO: Zocor (Simvastatin) 20 Mg Tab 20 Mg PO DAILY Review of Systems Except as stated in HPI: all other systems reviewed are Neg Physical Exam Narrative GENERAL: Well-developed, well-nourished, elderly-appearing female, awake, alert , no apparent distress. SKIN: Focused skin assessment warm/dry. Right lower extremity with area of erythema that is dressed with a clean/dry/sterile dressing. HEAD: Atraumatic. Normocephalic. EYES: Pupils equal and round. No scleral icterus. No injection or drainage. ENT: Mucous membranes pink and moist. NECK: Trachea midline. No JVD. No midline cervical spine step-off or tenderness. CARDIOVASCULAR: Regular rate and rhythm. No murmur appreciated. RESPIRATORY: No accessory muscle use. Clear to auscultation. Breath sounds equal bilaterally. GASTROINTESTINAL: Abdomen soft, non-tender, nondistended. MUSCULOSKELETAL: No obvious deformities. No clubbing. No cyanosis. No edema. NEUROLOGICAL: Awake and alert. No obvious cranial nerve deficits. Motor grossly within normal limits. Normal speech. Data Data Last Documented VS Vital Signs Date Time Temp Pulse Resp B/P (MAP) Pulse Ox O2 Delivery O2 Flow Rate FiO2 06/21/17 03:00 60 18 122/61 (81) 99 Nasal Cannula 06/21/17 01:30 2.00 06/21/17 01:10 101.1 Orders Orders Complete Blood Count With Diff (06/21/17 00:25) Comprehensive Metabolic Panel (06/21/17 00:25) Prothrombin Time / Inr (Pt) (06/21/17 00:25) Act Partial Throm Time (Ptt) (06/21/17 00:25) Lactic Acid Sepsis Protocol (06/21/17 00:25) Ckmb (Isoenzyme) Profile (06/21/17 00:25) Troponin I (06/21/17 00:25) Urinalysis - C+S If Indicated (06/21/17 00:25) Blood Culture (06/21/17 00:25) Chest, Single Ap (06/21/17 00:25) Ecg Monitoring (06/21/17 00:25) Iv Access Insert/Monitor (06/21/17 00:25) Oximetry (06/21/17 00:25) Ct Brain W/O Iv Contrast(Rout) (06/21/17 00:25) Ammonia (06/21/17 00:25) Thyroid Stimulating Hormone (06/21/17 00:25) Ct Cerv Spine W/O Contrast (06/21/17 ) Acetaminophen Supp (Tylenol Supp) (06/21/17 01:15) Ceftriaxone Inj (Rocephin Inj) (06/21/17 02:00) Influenzae A/B Antigen (06/21/17 01:46) ^ Straight Catheter (06/21/17 01:50) Vancomycin Inj (Vancomycin Inj) (06/21/17 02:45) Sodium Chlor 0.9% 1000 Ml Inj (Ns 1000 M (06/21/17 03:00) Admit Order (Ed Use Only) (06/21/17 03:09) Alcohol (Ethanol) (06/21/17 03:07) Vancomycin Consult Pharmacy (Vancomycin (06/21/17 03:15) Cefepime Inj (Maxipime Inj) (06/21/17 14:00) Admit To Inpatient (06/21/17 ) Vital Signs (Adult) Q4H (06/21/17 03:07) Activity Oob With Assistance (06/21/17 03:07) Laundry Operator Wash Room / Telemetry .CONTINUOUS (06/21/17 03:07) Intake + Output CALIXTO.QSHIFT (06/21/17 03:07) Diet Regular Basic (06/21/17 Breakfast) Sodium Chlor 0.9% 1000 Ml Inj (Ns 1000 M (06/21/17 03:07) Sodium Chloride 0.9% Flush (Ns Flush) (06/21/17 03:15) Sodium Chloride 0.9% Flush (Ns Flush) (06/21/17 09:00) Ondansetron Inj (Zofran Inj) (06/21/17 03:15) Comprehensive Metabolic Panel (06/22/17 06:00) Complete Blood Count With Diff (06/22/17 06:00) Case Management Consult (06/21/17 03:07) Acetaminophen (Tylenol) (06/21/17 03:15) Docusate Sodium-Senna (Clary-Colace) (06/21/17 09:00) Magnesium Hydroxide Liq (Milk Of Magnesi (06/21/17 03:15) Sennosides (Senokot) (06/21/17 03:15) Bisacodyl Supp (Dulcolax Supp) (06/21/17 03:15) Lactulose Liq (Lactulose Liq) (06/21/17 03:15) Inpatient Certification (06/21/17 ) Labs Laboratory Tests Test 06/21/17 00:50 06/21/17 02:00 06/21/17 02:15 White Blood Count 19.0 TH/MM3 Red Blood Count 4.03 MIL/MM3 Hemoglobin 11.7 GM/DL Hematocrit 36.5 % Mean Corpuscular Volume 90.5 FL Mean Corpuscular Hemoglobin 29.1 PG Mean Corpuscular Hemoglobin Concent 32.2 % Red Cell Distribution Width 15.0 % Platelet Count 191 TH/MM3 Mean Platelet Volume 8.7 FL Neutrophils (%) (Auto) 89.3 % Lymphocytes (%) (Auto) 6.3 % Monocytes (%) (Auto) 3.8 % Eosinophils (%) (Auto) 0.0 % Basophils (%) (Auto) 0.6 % Neutrophils # (Auto) 17.0 TH/MM3 Lymphocytes # (Auto) 1.2 TH/MM3 Monocytes # (Auto) 0.7 TH/MM3 Eosinophils # (Auto) 0.0 TH/MM3 Basophils # (Auto) 0.1 TH/MM3 CBC Comment DIFF FINAL Differential Comment Prothrombin Time 14.7 SEC Prothromb Time International Ratio 1.3 RATIO Activated Partial Thromboplast Time 24.2 SEC Lactic Acid Level 1.9 mmol/L Ammonia 27 MCMOL/L Blood Urea Nitrogen 27 MG/DL Creatinine 1.38 MG/DL Random Glucose 88 MG/DL Total Protein 6.1 GM/DL Albumin 2.6 GM/DL Calcium Level 8.4 MG/DL Alkaline Phosphatase 82 U/L Aspartate Amino Transf (AST/SGOT) 19 U/L Alanine Aminotransferase (ALT/SGPT) 16 U/L Total Bilirubin 0.9 MG/DL Sodium Level 136 MEQ/L Potassium Level 4.2 MEQ/L Chloride Level 97 MEQ/L Carbon Dioxide Level 32.0 MEQ/L Anion Gap 7 MEQ/L Estimat Glomerular Filtration Rate 37 ML/MIN Total Creatine Kinase 23 U/L Troponin I 0.05 NG/ML Thyroid Stimulating Hormone 3rd Gen 1.210 uIU/ML Ethyl Alcohol Level LESS THAN 3 MG/DL Urine Color YELLOW Urine Turbidity HAZY Urine pH 5.5 Urine Specific Ewing 1.022 Urine Protein 100 mg/dL Urine Glucose (UA) NEG mg/dL Urine Ketones NEG mg/dL Urine Occult Blood SMALL Urine Nitrite NEG Urine Bilirubin NEG Urine Urobilinogen 2.0 MG/DL Urine Leukocyte Esterase SMALL Urine RBC 4 /hpf Urine WBC 5 /hpf Urine Squamous Epithelial Cells 2 /hpf Urine Amorphous Sediment RARE Urine Hyaline Casts 20 /lpf Urine Mucus FEW /lpf Microscopic Urinalysis Comment CATH-CULT NOT IND MDM Medical Decision Making Medical Screen Exam Complete: Yes Emergency Medical Condition: Yes Medical Record Reviewed: Yes Differential Diagnosis AMS, metabolic abnormality, sepsis, UTI, pneumonia, intracranial trauma, cervical spine injury Narrative Course Initial vital signs show heart rate 64, blood pressure 97/55, pulse ox 95% on 2 L nasal cannula, rectal temp of 101.1F. Repeat blood pressure is 117/59. CBC: WBC 19 with 89% neutrophils, otherwise unremarkable. CMP is remarkable for BUN 27, creatinine 1.3, GFR 37, otherwise essentially unremarkable. UA shows small occult blood, small leukocyte esterase, few mucus. This was a catheterized specimen and is not suggestive of UTI. Influenza is negative. Chest x-ray: Small right pleural effusion and probable right basal atelectasis. Previous heart valve replacement. CT head: No acute intracranial disease. CT cervical spine: Minimal anterolisthesis C3 on C4 and C4 on C5. No acute fracture. Patient has an area of cellulitis to right lower extremity which is likely the source of her fever. She was given a dose of IV Rocephin empirically for suspected UTI and then administered a dose of IV vancomycin for the right lower extremity cellulitis. Blood cultures sent and are pending. She was administered rectal Tylenol for her fever. There is no nuchal rigidity on exam , and patient is oriented to person and place. Her abdominal exam shows no tenderness. She will be admitted for further treatment and evaluation of sepsis , cellulitis, altered mental status. Case discussed with hospitalist Dr. Camacho who will admit the patient to her service. Diagnosis Primary Impression: Sepsis Qualified Codes: A41.9 - Sepsis, unspecified organism Additional Impressions: Cellulitis of right leg Altered mental status Qualified Codes: R41.82 - Altered mental status, unspecified Closed head injury Qualified Codes: S09.90XA - Unspecified injury of head, initial encounter Admitting Information Admitting Physician Requests: Admit Margarito Lind MD Jun 21, 2017 00:42
--- NOTE | 2017-06-21 01:10 | RADRPT ---
EXAM DATE/TIME: 06/21/2017 00:41 [facility] COMPARISON: CHEST SINGLE AP, June 06, 2017, 7:59. INDICATIONS : Shortness of breath, fall. MEDICAL HISTORY : Hypertension. Cardiovascular disease. SURGICAL HISTORY : CABG. Hysterectomy. Appendectomy. ENCOUNTER: Initial ACUITY: 1 day PAIN SCORE: 0/10 LOCATION: Bilateral chest FINDINGS: A single view of the chest demonstrates small right pleural effusion and right basilar density likely atelectasis. Previous heart valve replacement. Cardiomegaly. Osseous structures are intact. CONCLUSION: 1. Small right pleural effusion and probable right basal atelectasis. 2. Previous heart valve replacement. Porter Esquivel MD on June 21, 2017 at 1:08 Board Certified Radiologist. This report was verified electronically.
[2017-06-21 01:14] LABS: BASOPHIL # 0.1 TH/MM3 (0-0.2); BASOPHIL % 0.6 % (0.0-2.0); HEMATOCRIT 36.5 % (35.0-46.0); HEMO FLAGS DIFF FINAL; LYMPH % 6.3 % (9.0-44.0); LYMPHOCYTE # 1.2 TH/MM3 (1.0-4.8); MEAN CELL VOLUME 90.5 FL (80.0-100.0); MEAN CORPUSCULAR HEMOGLOBIN 29.1 PG (27.0-34.0); MEAN CORPUSCULAR HGB CONC 32.2 % (32.0-36.0); MONO % 3.8 % (0.0-8.0); NEUT % 89.3 % (16.0-70.0); PLATELET COUNT 191 TH/MM3 (150-450); RED BLOOD COUNT 4.03 MIL/MM3 (4.00-5.30)
[2017-06-21] MEDS ORDERED: ACETAMINOPHEN 650 MG SUPP RECTAL ONE (01:15)
[2017-06-21 01:19] LABS: APTT (PATIENT) 24.2 SEC (24.3-30.1); INTERNATIONAL NORMALIZED RATIO 1.3 RATIO; PROTHROMBIN TIME - PATIENT 14.7 SEC (9.8-11.6)
[2017-06-21] MEDS ORDERED: cefTRIAXone INJ 1,000 MG in SODIUM CHLORIDE 0.9% INJ 100 ML IV ONE (02:00)
--- NOTE | 2017-06-21 02:19 | RADRPT ---
EXAM DATE/TIME: 06/21/2017 01:44 [facility] COMPARISON: CT BRAIN W/O CONTRAST, June 06, 2017, 8:11. INDICATIONS : Trauma. Fall with contusion to forehead. RADIATION DOSE: 32.75 CTDIvol (mGy) MEDICAL HISTORY : Dementia. Cardiovascular disease Hypertension.Cervical cancer SURGICAL HISTORY : CABG ENCOUNTER: Initial ACUITY: 1 day PAIN SCALE: 5/10 LOCATION: TECHNIQUE: Multiple contiguous axial images were obtained of the head. Using automated exposure control and adj ustment of the mA and/or kV according to patient size, radiation dose was kept as low as reasonably a chievable to obtain optimal diagnostic quality images. DICOM format image data is available electro nically for review and comparison. FINDINGS: CEREBRUM: The ventricles are normal for age. No evidence of midline shift, mass lesion, hemorrhage or acute in farction. No extra-axial fluid collections are seen. POSTERIOR FOSSA: The cerebellum and brainstem are intact. The 4th ventricle is midline. The cerebellopontine angle i s unremarkable. EXTRACRANIAL: The visualized portion of the orbits is intact. SKULL: The calvaria is intact. No evidence of skull fracture. CONCLUSION: No acute intracranial disease. Porter Esquivel MD on June 21, 2017 at 2:17 Board Certified Radiologist. This report was verified electronically.
--- NOTE | 2017-06-21 02:21 | RADRPT ---
EXAM DATE/TIME: 06/21/2017 01:44 [facility] COMPARISON: No previous studies available for comparison. INDICATIONS : Trauma. Fall. RADIATION DOSE: 16.67 CTDIvol (mGy) MEDICAL HISTORY : Cardiovascular disease. Dementia. Hypertension.Cervical cancer SURGICAL HISTORY : CABG ENCOUNTER: Initial ACUITY: 1 day PAIN SCALE: 5/10 LOCATION: neck TECHNIQUE: Volumetric scanning of the cervical spine was performed. Multiplanar reconstructions in the sagittal, coronal and oblique axial planes were performed. Using automated exposure control and adjustment o f the mA and/or kV according to patient size, radiation dose was kept as low as reasonably achievable to obtain optimal diagnostic quality images. DICOM format image data is available electronically f or review and comparison. FINDINGS: VERTEBRAE: Normal vertebral body height. ALIGNMENT: Minimal anterolisthesis C3 on C4 and C4 on C5. Diffuse disc space narrowing. C2-C3: The bony spinal canal is normal in size. No evidence of disc bulge or herniation. The neural forami na are bilaterally patent. C3-C4: The bony spinal canal is normal in size. No evidence of disc bulge or herniation. The neural forami na are bilaterally patent. C4-C5: The bony spinal canal is normal in size. No evidence of disc bulge or herniation. The neural forami na are bilaterally patent. C5-C6: The bony spinal canal is normal in size. No evidence of disc bulge or herniation. The neural forami na are bilaterally patent. C6-C7: The bony spinal canal is normal in size. No evidence of disc bulge or herniation. The neural forami na are bilaterally patent. C7-T1: The bony spinal canal is normal in size. No evidence of disc bulge or herniation. The neural forami na are bilaterally patent. CONCLUSION: Minimal anterolisthesis C3 on C4 and C4 on C5 no fracture.. Porter Esquivel MD on June 21, 2017 at 2:18 Board Certified Radiologist. This report was verified electronically.
[2017-06-21 02:27] LABS: BLOOD, URINE SMALL (NEG); GLUCOSE,URINE NEG (NEG); HYALINE CAST, URINE 20 /lpf (RARE); KETONE, URINE NEG (NEG); MUCUS URINE FEW /lpf (OCC); NITRITE,URINE NEG (NEG); PH, URINE 5.5 (5.0-8.5); SQUAMOUS EPITHELIAL CELL URINE 2 /hpf (0-5); URINE COLOR YELLOW (YELLW/STRAW)
[2017-06-21 02:29] LABS: COMMENT (UR) CATH-CULT NOT IND; CULTURE IF INDICATED CATH CULTURE NOT IND
[2017-06-21 02:39] LABS: ALT (GPT) 16 U/L (10-53); ANION GAP 7 MEQ/L (5-15); AST (GOT) 19 U/L (15-37); BLOOD UREA NITROGEN 27 MG/DL (7-18); CHLORIDE 97 MEQ/L (98-107); GLOMERULAR FILTRATION RATE 37 ML/MIN (>89); POTASSIUM 4.2 MEQ/L (3.5-5.1); SODIUM (NA) 136 MEQ/L (136-145)
[2017-06-21] MEDS ORDERED: VITA250T3 PO (02:41)
[2017-06-21] MEDS ORDERED: ZINC220T PO (02:41)
[2017-06-21] MEDS ORDERED: CITA10TA4 PO (02:41)
[2017-06-21] MEDS ORDERED: MILKSUS PO (02:41)
[2017-06-21] MEDS ORDERED: AMMO12CR4 TOP (02:41)
[2017-06-21] MEDS ORDERED: NAPR250T PO (02:41)
[2017-06-21] MEDS ORDERED: ENEMENE5 (02:41)
[2017-06-21] MEDS ORDERED: MAPA325T PO (02:41)
[2017-06-21] MEDS ORDERED: METO100T PO (02:41)
[2017-06-21] MEDS ORDERED: OYST500T53 PO (02:41)
[2017-06-21] MEDS ORDERED: MULTTAB67 PO (02:41)
[2017-06-21] MEDS ORDERED: MAGN100T2 PO (02:41)
[2017-06-21] MEDS ORDERED: VANCOMYCIN INJ 1,000 MG in SODIUM CHLOR 0.9% 250 ML INJ 250 ML IV ONE (02:45)
[2017-06-21 02:50] LABS: ALKALINE PHOSPHATASE 82 U/L (45-117); TOTAL BILIRUBIN ADULT 0.9 MG/DL (0.2-1.0)
[2017-06-21 02:51] LABS: CREATINE KINASE 23 U/L (26-192)
[2017-06-21] MEDS ORDERED: SODIUM CHLOR 0.9% 1000 ML INJ 1,000 ML IV ONE (03:00)
[2017-06-21] MEDS ORDERED: LACTULOSE SYRUP 20 GM/30 ML CUP PO PRN (03:15)
[2017-06-21] MEDS ORDERED: BISACODYL 10 MG SUPP RECTAL PRN (03:15)
[2017-06-21] MEDS ORDERED: ONDANSETRON HCL 4 MG/2 ML VIAL IVP PRN (03:15)
[2017-06-21] MEDS ORDERED: SODIUM CHLORIDE 0.9% FLUSH 10 ML FLUSH IV FLUSH PRN (03:15)
[2017-06-21] MEDS ORDERED: Vancomycin Consult Pharmacy 1 EA OTHER SCH (03:15)
[2017-06-21] MEDS ORDERED: ACETAMINOPHEN 325 MG TAB PO PRN (03:15)
[2017-06-21] MEDS ORDERED: MAGNESIUM HYDROXIDE SUSP 30 ML CUP PO PRN (03:15)
[2017-06-21] MEDS ORDERED: SENNOSIDES 8.6 MG TAB PO PRN (03:15)
[2017-06-21] MEDS: SODIUM CHLOR 0.9% 1000 ML INJ 1,000 ML IV SCH ×3 (03:40→23:07)
--- NOTE | 2017-06-21 04:10 | HHI.HP ---
[facility] Venus Anaya MD Admission Diagnosis sepsis, closed head injury, altered mental status, cellulitis Diagnoses: (1) Fall Diagnosis: Principal (2) Sepsis Diagnosis: Principal (3) Encephalopathy Diagnosis: Principal (4) Cellulitis of right leg Diagnosis: Principal (5) Renal insufficiency Diagnosis: Principal Travel History International Travel<30 Days: No Contact w/Intl Traveler <30 Da: No Traveled to Known Affected Are: No History of Present Illness This is an 82-year-old female with a PMH of Anxiety, Depression, HTN, Hyperlipidemia, Dementia and Valve Replacement who was brought to the ER by EMS from SNF secondary to fall w/ head trauma and AMS. Per report, pt had fallen out of bed earlier tonight, sustained left forehead contusion, shortly afterwards was noted to have AMS. On arrival, pt oriented to person/place. Unable to provide much history, but has no complaints. BP 97/55, HR 64, O2 sat 95% on RA, Temp 101.1 Rectal. WBC 19. Creatinine 1.38, previously 2.0 on 06/06. INR 1.3. UA with small LE, mild bacteriuria. CT Head/C-spine with no acute findings. CXR with small right pleural effusion and probable right base atelectasis. On exam, pt noted to have RLE Cellulitis. S/p Blood Cultures, Vanc/Zosyn in ER. Review of Systems Except as stated in HPI: all other systems reviewed are Neg ROS: 14 point review of systems otherwise negative. Past Family Social History Past Medical History PMH: Anxiety, Depression, HTN, Hyperlipidemia, Dementia and Valve Replacement Past Surgical History PAST SURGICAL HISTORY: Appendectomy, Valve Replacement, CABG, Cataract Surgery , Hysterectomy, Tonsillectomy Allergies: Coded Allergies: diatrizoate meglumine (Verified Allergy, Severe, 06/21/17) gadobenic acid (Verified Allergy, Severe, 06/21/17) gadodiamide (Verified Allergy, Severe, 06/21/17) gadoteridol (Verified Allergy, Severe, 06/21/17) iodixanol (Verified Allergy, Severe, 06/21/17) iohexol (Verified Allergy, Severe, 06/21/17) benazepril (Verified Allergy, Mild, RESPIRATORY, 06/21/17) captopril (Verified Allergy, Mild, RESPIRATORY, 06/21/17) enalaprilat (Verified Allergy, Mild, RESPIRATORY, 06/21/17) fosinopril (Verified Allergy, Mild, RESPIRATORY, 06/21/17) lisinopril (Verified Allergy, Mild, RESPIRATORY, 06/21/17) quinapril (Verified Allergy, Mild, RESPIRATORY, 06/21/17) Family History PAST FAMILY HISTORY: Reviewed. No h/o DM or CAD Social History PAST SOCIAL HISTORY: Drinks 1-2 cocktails daily. H/o tobacco, quit 2006. Negative for drugs. Physical Exam Vital Signs Vital Signs Date Time Temp Pulse Resp B/P (MAP) Pulse Ox O2 Delivery O2 Flow Rate FiO2 06/21/17 01:10 101.1 64 18 97/55 (69) 95 06/21/17 00:55 96 Nasal Cannula 2.00 Physical Exam PE: GENERAL: Elderly white female in no acute distress. HEENT: PERRLA, EOMI. No scleral icterus or conjunctival pallor. No lid lag or facial droop. CARDIOVASCULAR: Regular rate and rhythm. No obvious murmurs to auscultation. No chest tenderness to palpation. RESPIRATORY: No obvious rhonchi or wheezing. Clear to auscultation. Breath sounds equal bilaterally. GASTROINTESTINAL: Abdomen soft, non-tender, nondistended. BS normal. MUSCULOSKELETAL: Extremities without clubbing, cyanosis, or edema. No obvious deformities. RLE w/ cellulitis, no abscess noted. NEUROLOGICAL: Awake, alert and oriented to person/place, occasional confusion. No focal neurologic deficits. Moving both upper and lower extremities spontaneously. Laboratory Laboratory Tests Test 06/21/17 00:50 06/21/17 02:00 06/21/17 02:15 White Blood Count 19.0 Red Blood Count 4.03 Hemoglobin 11.7 Hematocrit 36.5 Mean Corpuscular Volume 90.5 Mean Corpuscular Hemoglobin 29.1 Mean Corpuscular Hemoglobin Concent 32.2 Red Cell Distribution Width 15.0 Platelet Count 191 Mean Platelet Volume 8.7 Neutrophils (%) (Auto) 89.3 Lymphocytes (%) (Auto) 6.3 Monocytes (%) (Auto) 3.8 Eosinophils (%) (Auto) 0.0 Basophils (%) (Auto) 0.6 Neutrophils # (Auto) 17.0 Lymphocytes # (Auto) 1.2 Monocytes # (Auto) 0.7 Eosinophils # (Auto) 0.0 Basophils # (Auto) 0.1 CBC Comment DIFF FINAL Differential Comment Prothrombin Time 14.7 Prothromb Time International Ratio 1.3 Activated Partial Thromboplast Time 24.2 Lactic Acid Level 1.9 Ammonia 27 Blood Urea Nitrogen 27 Creatinine 1.38 Random Glucose 88 Total Protein 6.1 Albumin 2.6 Calcium Level 8.4 Alkaline Phosphatase 82 Aspartate Amino Transf (AST/SGOT) 19 Alanine Aminotransferase (ALT/SGPT) 16 Total Bilirubin 0.9 Sodium Level 136 Potassium Level 4.2 Chloride Level 97 Carbon Dioxide Level 32.0 Anion Gap 7 Estimat Glomerular Filtration Rate 37 Total Creatine Kinase 23 Troponin I 0.05 Thyroid Stimulating Hormone 3rd Gen 1.210 Urine Color YELLOW Urine Turbidity HAZY Urine pH 5.5 Urine Specific [place] 1.022 Urine Protein 100 Urine Glucose (UA) NEG Urine Ketones NEG Urine Occult Blood SMALL Urine Nitrite NEG Urine Bilirubin NEG Urine Urobilinogen 2.0 Urine Leukocyte Esterase SMALL Urine RBC 4 Urine WBC 5 Urine Squamous Epithelial Cells 2 Urine Amorphous Sediment RARE Urine Hyaline Casts 20 Urine Mucus FEW Microscopic Urinalysis Comment CATH-CULT NOT IND Date/Time Source Procedure Growth Status 06/21/17 00:50 Blood Peripheral Aerobic Blood Culture Pending Received 06/21/17 00:50 Blood Peripheral Anaerobic Blood Culture Pending Received 06/21/17 02:00 Nasal Washing Influenza Types A,B Antigen (DONATO) - Final NEGATIVE FOR FLU A AND B ANTIGEN.... Complete Result Diagram: 06/21/17 0050 06/21/17 0200 Caprini VTE Risk Assessment Caprini VTE Risk Assessment: No/Low Risk (score <= 1) Caprini Risk Assessment Model Point Value = 1 Point Value = 2 Point Value = 3 Point Value = 5 Age 41-60 Minor surgery BMI > 25 kg/m2 Swollen legs Varicose veins or History of unexplained or recurrent spontaneous Oral contraceptives or hormone replacement Sepsis (< 1 month) Serious lung disease, including pneumonia (< 1 month) Abnormal pulmonary function Acute myocardial infarction Congestive heart failure (< 1 month) History of inflammatory bowel disease Medical patient at bed rest Age 61-74 Arthroscopic surgery Major open surgery (> 45 min) Laparoscopic surgery (> 45 min) Malignancy Confined to bed (> 72 hours) Immobilizing plaster cast Central venous access Age >= 75 History of VTE Family history of VTE Factor V Leiden Prothrombin [id number] Lupus anticoagulant Anticardiolipin antibodies Elevated serum homocysteine Heparin-induced thrombocytopenia Other congenital or acquired thrombophilia Stroke (< 1 month) Elective arthroplasty Hip, pelvis, or leg fracture Acute spinal cord injury (< 1 month) Prophylaxis Regimen Total Risk Factor Score Risk Level Prophylaxis Regimen 0-1 Low Early ambulation 2 Moderate Order ONE of the following: *Sequential Compression Device (SCD) *Heparin 5000 units SQ BID 3-4 Higher Order ONE of the following medications: *Heparin 5000 units SQ TID *Enoxaparin/Lovenox 40 mg SQ daily (WT < 150 kg, CrCl > 30 mL/min) *Enoxaparin/Lovenox 30 mg SQ daily (WT < 150 kg, CrCl > 10-29 mL/min) *Enoxaparin/Lovenox 30 mg SQ BID (WT < 150 kg, CrCl > 30 mL/min) AND/OR *Sequential Compression Device (SCD) 5 or more Highest Order ONE of the following medications: *Heparin 5000 units SQ TID (Preferred with Epidurals) *Enoxaparin/Lovenox 40 mg SQ daily (WT < 150 kg, CrCl > 30 mL/min) *Enoxaparin/Lovenox 30 mg SQ daily (WT < 150 kg, CrCl > 10-29 mL/min) *Enoxaparin/Lovenox 30 mg SQ BID (WT < 150 kg, CrCl > 30 mL/min) AND *Sequential Compression Device (SCD) Assessment and Plan Problem List: (1) Fall ICD Code: W19.XXXA - Unspecified fall, initial encounter (2) Sepsis ICD Code: A41.9 - Sepsis, unspecified organism Status: Acute (3) Cellulitis of right leg ICD Code: L03.115 - Cellulitis of right lower limb Status: Acute (4) Encephalopathy ICD Code: G93.40 - Encephalopathy, unspecified (5) Renal insufficiency ICD Code: N28.9 - Disorder of kidney and ureter, unspecified Assessment and Plan A/P: 1. Fall: s/p fall out of bed, +head trauma, +left forehead hematoma, CT Head/C -Spine w/ no acute findings, images reviewed by me. PT for eval/tx. 2. Sepsis: Temp 101.1, WBC 19, Source-RLE Cellulitis. S/p Blood Cultures, Vanc/Zosyn in ER, follow up cultures, continue IV Abx. 3. RLE Cellulitis: Continue w/ IV Abx as above, follow cultures, Wound Consult as needed. 4. Encephalopathy: Likely multifactorial-secondary to fall w/ head injury and acute sepsis. CT Head w/ no acute findings, images reviewed by me. U/a w/ minimal bacteriuria. H/o Alcohol use per previous records, check Alcohol level. Neuro checks. 5. Renal Insufficiency: Chronic. Creatinine 1.38, previously 2.00 on . Will monitor, IVF for hydration, repeat labs in am. 6. DVT Prophylaxis: Pharmacologic contraindication in light of recent head trauma, Mechanical contraindication in light of LE Cellulitis. 7. Social work for d/c planning as needed. 8. Case discussed w/ ER physician at length. Physician Certification 2 Midnight Certification Type: Admission for Inpatient Services Order for Inpatient Services The services are ordered in accordance with Medicare regulations or non- Medicare payer requirements, as applicable. In the case of services not specified as inpatient-only, they are appropriately provided as inpatient services in accordance with the 2-midnight benchmark. Estimated LOS (days): 2 days is the estimated time the patient will need to remain in the hospital, assuming treatment plan goals are met and no additional complications. Post-Hospital Plan: Not yet determined Problem Qualifiers (1) Sepsis: Qualified Codes: A41.9 - Sepsis, unspecified organism Sarina Camacho MD Jun 21, 2017 04:10
[2017-06-21] MEDS: DOCUSATE SODIUM 50 MG/SENNA 8.6 MG TAB PO SCH ×2 (09:00→21:00)
[2017-06-21] MEDS: SODIUM CHLORIDE 0.9% FLUSH 10 ML FLUSH IV FLUSH SCH ×2 (09:00→21:00)
--- NOTE | 2017-06-21 09:17 | HHI.PR ---
Subjective Remarks Follow-up for fall with head trauma and fever. The patient awakens easily to voice. She remains confused and disoriented. She denies any pain. She does follow commands. Objective Vitals Vital Signs Date Time Temp Pulse Resp B/P (MAP) Pulse Ox O2 Delivery O2 Flow Rate FiO2 06/21/17 07:43 97.9 62 16 153/84 (107) 99 06/21/17 04:37 97.5 63 20 140/72 (94) 100 06/21/17 04:00 62 16 137/62 (87) 96 Nasal Cannula 2.00 06/21/17 03:00 60 18 122/61 (81) 99 Nasal Cannula 06/21/17 01:30 66 18 109/55 (73) 96 Nasal Cannula 2.00 06/21/17 01:10 101.1 64 18 97/55 (69) 95 06/21/17 00:55 96 Nasal Cannula 2.00 06/21/17 00:30 68 18 97/62 (74) 96 Nasal Cannula 2.00 I/O 06/20/17 06/20/17 06/20/17 06/21/17 06/21/17 06/21/17 07:00 15:00 23:00 07:00 15:00 23:00 Intake Total 3550 ml Balance 3550 ml Intake Oral 300 ml IV Total 3250 ml # Voids 2 Result Diagram: 06/21/17 0050 06/21/17 0200 Imaging Last Impressions Head CT 06/21/175 Signed Impressions: Service Date/Time: May 01:44 - CONCLUSION: No acute intracranial disease. Porter Esquivel MD Chest X-Ray 06/21/17 0025 Signed Impressions: Service Date/Time: May 00:41 - CONCLUSION: 1. Small right pleural effusion and probable right basal atelectasis. 2. Previous heart valve replacement. Porter Esquivel MD Cervical Spine CT 06/21/17 0000 Signed Impressions: Service Date/Time: May 01:44 - CONCLUSION: Minimal anterolisthesis C3 on C4 and C4 on C5 no fracture.. Porter Esquivel MD Objective Remarks GENERAL: Well-developed well-nourished. In no acute distress. SKIN: Warm and dry. Venous stasis changes bilateral lower extremities with some mild edema and weeping on the right. HEENT: Normocephalic. Pupils equal and round and reactive to light. Mucous membranes pink and moist. CARDIOVASCULAR: Irregular rate and rhythm. No murmur appreciated. RESPIRATORY: No accessory muscle use. Clear to auscultation. Breath sounds equal bilaterally. GASTROINTESTINAL: Abdomen soft, non-tender, nondistended. Bowel sounds x4. MUSCULOSKELETAL: Venous stasis changes as above. No clubbing or cyanosis. NEUROLOGICAL: Sleepy but awakens easily. Follow commands. Motor grossly intact in the upper and lower extremities. No meningeal signs. Normal speech. PSYCHIATRIC: Pleasantly confused mood and affect A/P Problem List: (1) Fall ICD Code: W19.XXXA - Unspecified fall, initial encounter (2) Sepsis ICD Code: A41.9 - Sepsis, unspecified organism Status: Acute (3) Cellulitis of right leg ICD Code: L03.115 - Cellulitis of right lower limb Status: Acute (4) Encephalopathy ICD Code: G93.40 - Encephalopathy, unspecified (5) Renal insufficiency ICD Code: N28.9 - Disorder of kidney and ureter, unspecified Assessment and Plan 82-year-old female with a PMH of Anxiety, Depression, HTN, Hyperlipidemia, Dementia and Valve Replacement who was sent from SNF secondary to fall w/ head trauma and AMS Fall: s/p fall out of bed, +head trauma, +left forehead hematoma. CT Head/C- Spine w/ no acute findings. PT for eval/tx. neuro checks. SIRS: Temp 101.1, WBC 19. Unclear source. Blood Cultures pending. On IV vancomycin and cefepime. Consult ID. Acute metabolic encephalopathy: Patient remains confused/disoriented. Possibly secondary to head trauma or infection. U/a and chest x-ray w/ no signs of infection. D/W Dr. Haji, check brain MRI. Repeat labs today. Venous stasis changes: Lower extremities, worse on the right. Recent admission for this and wound care was ordered. No obvious signs of infection at this time. Chronic kidney disease: Creatinine 1.38, previously 2.00 on 06/06/17. Will monitor, IVF for hydration, repeat labs in am. Atrial fibrillation: Metoprolol on hold with initial soft blood pressure, resume at decreased dose. Patient recently taken off of Coumadin for coagulopathy and falls, INR 1.3. DVT Prophylaxis: Pharmacologic contraindication in light of recent head trauma , Mechanical contraindication in light of LE Cellulitis. Problem Qualifiers (1) Sepsis: Qualified Codes: A41.9 - Sepsis, unspecified organism Ashok Sanchez Jun 21, 2017 09:17
[2017-06-21] MEDS: METOPROLOL TARTRATE 25 MG TAB PO SCH ×2 (10:00→22:08)
--- NOTE | 2017-06-21 11:20 | PD.ID.CON ---
History of Present Illness Service ID Consult Requested By Ashok BRUNSON Reason for Consult SIRS with MS change Primary Care Physician Venus Anaya MD Diagnoses: History of Present Illness Pty is a very poor historian She is 82 yo female admistted from senior care with mental status change and fever up to 101 She apparently got dizzy and collapsed on ambulation attempt She also has leukocytosis up to 19 K Her nmental status actually i mproved since admission and she is able to aswer some questions correctly She denies headache, her UA was not cw infection and CXR was negative Flu test also negative' Blood clx pending and she has a h/o aortic valve replacement 8 yrs ago She is a former heavy smoker (1ppd) Her w/u showed Small focal area of abnormal signal involving the right temporal lobe. The findings would suggest a subacute to chronic area of infarction. PT attempted to ambulate her and she co dizziness Review of Systems ROS Limitations: Altered Mental Status (confused), Poor Historian Past Family Social History Allergies: Coded Allergies: diatrizoate meglumine (Verified Allergy, Severe, 06/21/17) gadobenic acid (Verified Allergy, Severe, 06/21/17) gadodiamide (Verified Allergy, Severe, 06/21/17) gadoteridol (Verified Allergy, Severe, 06/21/17) iodixanol (Verified Allergy, Severe, 06/21/17) iohexol (Verified Allergy, Severe, 06/21/17) benazepril (Verified Allergy, Mild, RESPIRATORY, 06/21/17) captopril (Verified Allergy, Mild, RESPIRATORY, 06/21/17) enalaprilat (Verified Allergy, Mild, RESPIRATORY, 06/21/17) fosinopril (Verified Allergy, Mild, RESPIRATORY, 06/21/17) lisinopril (Verified Allergy, Mild, RESPIRATORY, 06/21/17) quinapril (Verified Allergy, Mild, RESPIRATORY, 06/21/17) Past Medical History Anxiety, Depression, HTN, Hyperlipidemia, Dementia and Valve Replacement Past Surgical History : Appendectomy, Valve Replacement, CABG, Cataract Surgery, Hysterectomy, Tonsillectomy Active Ordered Medications Medications where reviewed in EMR Antibiotics Include: cefepime vancomycin Family History Reviewed. No h/o DM or CAD Social History Resides in senior care Drinks 1-2 cocktails daily. H/o tobacco, quit 2006. Negative for drugs. Physical Exam Vital Signs Vital Signs Date Time Temp Pulse Resp B/P (MAP) Pulse Ox O2 Delivery O2 Flow Rate FiO2 06/21/17 07:43 97.9 62 16 153/84 (107) 99 06/21/17 04:37 97.5 63 20 140/72 (94) 100 06/21/17 04:00 62 16 137/62 (87) 96 Nasal Cannula 2.00 06/21/17 03:00 60 18 122/61 (81) 99 Nasal Cannula 06/21/17 01:30 66 18 109/55 (73) 96 Nasal Cannula 2.00 06/21/17 01:10 101.1 64 18 97/55 (69) 95 06/21/17 00:55 96 Nasal Cannula 2.00 06/21/17 00:30 68 18 97/62 (74) 96 Nasal Cannula 2.00 Physical Exam CONSTITUTIONAL/GENERAL: This is an adequately nourished elderly patient, in no apparent distress. TUBES/LINES/DRAINS: SKIN: No jaundice, rashes, or lesions. Ecchymoses on upper extremities. No wounds seen anteriorly. Skin temperature appropriate. Not diaphoretic. HEAD: Atraumatic. Normocephalic. EYES: Pupils equal and round and reactive. Extraocular motions intact. No scleral icterus. No injection or drainage. Fundi not examined. ENT: Hearing grossly normal. Nose without bleeding or purulent drainage. Oral mucosae without visible erythema, exudates, masses, or lesions. NECK: Trachea midline. Supple, nontender. CARDIOVASCULAR: Regular rate and rhythm without murmurs, gallops, or rubs. No JVD. Peripheral pulses symmetric. RESPIRATORY/CHEST: Symmetric, unlabored respirations. Clear to auscultation. Breath sounds equal bilaterally. No wheezes, rales, or rhonchi. GASTROINTESTINAL: Abdomen soft, non-tender, nondistended. No hepato-splenomegaly , or palpable masses. No guarding. Bowel sounds present. GENITOURINARY: Without palpable bladder distension. MUSCULOSKELETAL: Extremities without clubbing,, or edema. No joint tenderness or effusion noted. No calf tenderness. + mottling and cyanosis of b/l feet cool -to cold to touch No palpable pulses + chronic dyscoloration of BLE LYMPHATICS: No palpable cervical or supraclavicular adenopathy. NEUROLOGICAL: Awake and alert. Confused. Oriented x 2 . Motor and sensory grossly within normal limits. Follows commands. Clear speech. Moves all extremities. PSYCHIATRIC: No obvious anxiety/depression. no apparent hallucinations or other psychotic thought process. Laboratory Laboratory Tests Test 06/21/17 00:50 06/21/17 02:00 06/21/17 02:15 White Blood Count 19.0 Red Blood Count 4.03 Hemoglobin 11.7 Hematocrit 36.5 Mean Corpuscular Volume 90.5 Mean Corpuscular Hemoglobin 29.1 Mean Corpuscular Hemoglobin Concent 32.2 Red Cell Distribution Width 15.0 Platelet Count 191 Mean Platelet Volume 8.7 Neutrophils (%) (Auto) 89.3 Lymphocytes (%) (Auto) 6.3 Monocytes (%) (Auto) 3.8 Eosinophils (%) (Auto) 0.0 Basophils (%) (Auto) 0.6 Neutrophils # (Auto) 17.0 Lymphocytes # (Auto) 1.2 Monocytes # (Auto) 0.7 Eosinophils # (Auto) 0.0 Basophils # (Auto) 0.1 CBC Comment DIFF FINAL Differential Comment Prothrombin Time 14.7 Prothromb Time International Ratio 1.3 Activated Partial Thromboplast Time 24.2 Lactic Acid Level 1.9 Ammonia 27 Blood Urea Nitrogen 27 Creatinine 1.38 Random Glucose 88 Total Protein 6.1 Albumin 2.6 Calcium Level 8.4 Alkaline Phosphatase 82 Aspartate Amino Transf (AST/SGOT) 19 Alanine Aminotransferase (ALT/SGPT) 16 Total Bilirubin 0.9 Sodium Level 136 Potassium Level 4.2 Chloride Level 97 Carbon Dioxide Level 32.0 Anion Gap 7 Estimat Glomerular Filtration Rate 37 Total Creatine Kinase 23 Troponin I 0.05 Thyroid Stimulating Hormone 3rd Gen 1.210 Ethyl Alcohol Level LESS THAN 3 Urine Color YELLOW Urine Turbidity HAZY Urine pH 5.5 Urine Specific [place] 1.022 Urine Protein 100 Urine Glucose (UA) NEG Urine Ketones NEG Urine Occult Blood SMALL Urine Nitrite NEG Urine Bilirubin NEG Urine Urobilinogen 2.0 Urine Leukocyte Esterase SMALL Urine RBC 4 Urine WBC 5 Urine Squamous Epithelial Cells 2 Urine Amorphous Sediment RARE Urine Hyaline Casts 20 Urine Mucus FEW Microscopic Urinalysis Comment CATH-CULT NOT IND Date/Time Source Procedure Growth Status 06/21/17 00:50 Blood Peripheral Aerobic Blood Culture Pending Received 06/21/17 00:50 Blood Peripheral Anaerobic Blood Culture Pending Received 06/21/17 02:00 Nasal Washing Influenza Types A,B Antigen (DONATO) - Final NEGATIVE FOR FLU A AND B ANTIGEN.... Complete Result Diagram: 06/21/17 0050 06/21/17 0200 Imaging Last Impressions Head CT 06/21/1724 Signed Impressions: Service Date/Time: May 01:44 - CONCLUSION: No acute intracranial disease. Porter Esquivel MD Chest X-Ray 06/21/1724 Signed Impressions: Service Date/Time: , June 21, 2017 00:41 - CONCLUSION: 1. Small right pleural effusion and probable right basal atelectasis. 2. Previous heart valve replacement. Porter Esquivel MD Cervical Spine CT 06/21/17 0000 Signed Impressions: Service Date/Time: , June 21, 2017 01:44 - CONCLUSION: Minimal anterolisthesis C3 on C4 and C4 on C5 no fracture.. Porter Esquivel MD Brain MRI 06/21/17 0000 Signed Impressions: Service Date/Time: May 15:14 - CONCLUSION: Small focal area of abnormal signal involving the right temporal lobe. The findings would suggest a subacute to chronic area of infarction. A short term followup brain MRI with contrast is suggested. 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
--- NOTE | 2017-06-21 16:07 | RADRPT ---
EXAM DATE/TIME: 06/21/2017 15:14 [facility] COMPARISON: CT BRAIN W/O CONTRAST, June 06, 2017, 8:11. INDICATIONS : Stroke. MEDICAL HISTORY : Hypertension. SURGICAL HISTORY : CABG Cataracts. ENCOUNTER: Subsequent ACUITY: 1 day PAIN SCORE: 3/10 LOCATION: cranial TECHNIQUE: Multiplanar, multisequence MRI of the brain was performed without contrast. FINDINGS: There is a small focal subtle area of differing signal involving the most inferior portion of the rig ht temporal lobe. This area measures approximately 1.2 cm in diameter and involves the cortex and imm ediate subcortical white matter of the lateral portion of the temporal lobe. It is high in flair sign al and T2 weighted sequences and relatively low in signal on the T1-weighted sequence although somewh at difficult to see on the T1-weighted sequence. Minimal peripheral restricted diffusion with central loss of signal on the ADC map. The remaining brain parenchyma shows scattered foci of high flair sig nal involving the periventricular and subcortical white matter of both cerebral hemispheres. Atrophy. No hemorrhage. Orbital structures and paranasal sinuses are clear. CONCLUSION: Small focal area of abnormal signal involving the right temporal lobe. The findings would suggest a s ubacute to chronic area of infarction. A short term followup brain MRI with contrast is suggested. Abdiel Nelson Jr., MD on June 21, 2017 at 15:59 Board Certified Radiologist. This report was verified electronically.
[2017-06-21] MEDS: CEFEPIME INJ 1,000 MG in SODIUM CHLORIDE 0.9% INJ 100 ML IV SCH (18:58)
[2017-06-21 20:49] LABS: AUTOMATED NEUTROPHIL # 13.3 TH/MM3 (1.8-7.7); BASOPHIL # 0.1 TH/MM3 (0-0.2); BASOPHIL % 0.4 % (0.0-2.0); EOSINOPHIL % 0.2 % (0.0-4.0); HEMATOCRIT 39.7 % (35.0-46.0); HEMO FLAGS DIFF FINAL; LYMPH % 5.4 % (9.0-44.0); LYMPHOCYTE # 0.8 TH/MM3 (1.0-4.8); MEAN CELL VOLUME 91.8 FL (80.0-100.0); MEAN CORPUSCULAR HEMOGLOBIN 28.6 PG (27.0-34.0); MEAN CORPUSCULAR HGB CONC 31.1 % (32.0-36.0); MONO % 7.8 % (0.0-8.0); NEUT % 86.2 % (16.0-70.0); PLATELET COUNT 193 TH/MM3 (150-450); RED BLOOD COUNT 4.32 MIL/MM3 (4.00-5.30); RED CELL DISTRIBUTION WIDTH 15.8 % (11.6-17.2); WHITE BLOOD COUNT 15.4 TH/MM3 (4.0-11.0)
[2017-06-21 21:10] LABS: ANION GAP 9 MEQ/L (5-15); AST (GOT) 17 U/L (15-37); BICARBONATE 27.4 MEQ/L (21.0-32.0); BLOOD UREA NITROGEN 32 MG/DL (7-18); CHLORIDE 101 MEQ/L (98-107); GLOMERULAR FILTRATION RATE 30 ML/MIN (>89); POTASSIUM 3.9 MEQ/L (3.5-5.1); SODIUM (NA) 137 MEQ/L (136-145)
[2017-06-21 21:14] LABS: ALKALINE PHOSPHATASE 83 U/L (45-117); ALT (GPT) 14 U/L (10-53); TOTAL BILIRUBIN ADULT 0.7 MG/DL (0.2-1.0)
[2017-06-21] MEDS: VANCOMYCIN INJ 1,250 MG in SODIUM CHLOR 0.9% 250 ML INJ 250 ML IV SCH (22:08)
[2017-06-22] VITALS (8 sets, daily range): BP systolic 93–135; BP diastolic 60–80; PULSE 69–84; RESP 18; TEMP 96.3–98.2; O2SAT 93–98
[2017-06-22] MEDS: CEFEPIME INJ 1,000 MG in SODIUM CHLORIDE 0.9% INJ 100 ML IV SCH ×2 (01:57→12:29)
[2017-06-22] MEDS: SODIUM CHLOR 0.9% 1000 ML INJ 1,000 ML IV SCH ×2 (07:12→18:39)
[2017-06-22] MEDS: SODIUM CHLORIDE 0.9% FLUSH 10 ML FLUSH IV FLUSH SCH ×2 (08:47→21:37)
[2017-06-22] MEDS: DOCUSATE SODIUM 50 MG/SENNA 8.6 MG TAB PO SCH ×2 (08:48→21:00)
[2017-06-22] MEDS: METOPROLOL TARTRATE 25 MG TAB PO SCH ×2 (08:49→21:36)
[2017-06-22 09:46] LABS: AUTOMATED NEUTROPHIL # 8.4 TH/MM3 (1.8-7.7); BASOPHIL % 0.2 % (0.0-2.0); HEMATOCRIT 38.3 % (35.0-46.0); HEMO FLAGS DIFF FINAL; LYMPH % 10.3 % (9.0-44.0); LYMPHOCYTE # 1.1 TH/MM3 (1.0-4.8); MEAN CELL VOLUME 91.8 FL (80.0-100.0); MEAN CORPUSCULAR HEMOGLOBIN 29.4 PG (27.0-34.0); MONO % 10.2 % (0.0-8.0); NEUT % 79.3 % (16.0-70.0); PLATELET COUNT 185 TH/MM3 (150-450); RED BLOOD COUNT 4.17 MIL/MM3 (4.00-5.30); RED CELL DISTRIBUTION WIDTH 15.7 % (11.6-17.2); WHITE BLOOD COUNT 10.6 TH/MM3 (4.0-11.0)
[2017-06-22 10:04] LABS: ANION GAP 12 MEQ/L (5-15); AST (GOT) 15 U/L (15-37); BICARBONATE 20.6 MEQ/L (21.0-32.0); BLOOD UREA NITROGEN 35 MG/DL (7-18); CHLORIDE 107 MEQ/L (98-107); GLOMERULAR FILTRATION RATE 32 ML/MIN (>89); POTASSIUM 4.1 MEQ/L (3.5-5.1); SODIUM (NA) 140 MEQ/L (136-145)
[2017-06-22 10:08] LABS: ALKALINE PHOSPHATASE 73 U/L (45-117); ALT (GPT) 14 U/L (10-53); TOTAL BILIRUBIN ADULT 0.7 MG/DL (0.2-1.0)
--- NOTE | 2017-06-22 10:20 | HHI.PR ---
Subjective Remarks 82 years old- right handed states azul ambulates with a walker- for years denies any pain, generalized weakness ff all commands Objective Vitals Vital Signs Date Time Temp Pulse Resp B/P (MAP) Pulse Ox O2 Delivery O2 Flow Rate FiO2 06/22/17 08:47 115/70 (85) 06/22/17 08:00 81 06/22/17 06:48 98 06/22/17 06:47 79 3.00 06/22/17 05:42 98 06/22/17 05:41 79 3.00 06/22/17 04:00 98.2 74 18 93/61 (72) 93 06/22/17 03:45 98 06/22/17 03:42 78 3.00 06/22/17 00:50 Nasal Cannula 3.00 06/22/17 00:37 124/80 (95) 06/22/17 00:00 98.0 81 18 98 06/21/17 20:33 98.2 80 18 135/87 (103) 99 06/21/17 15:58 96.3 84 20 117/78 (91) 93 06/21/17 11:29 98.0 60 18 135/91 (106) 99 I/O 06/21/17 06/21/17 06/21/17 06/22/17 06/22/17 06/22/17 07:00 15:00 23:00 07:00 15:00 23:00 Intake Total 3550 ml 100 ml 1000 ml Balance 3550 ml 100 ml 1000 ml Intake Oral 300 ml IV Total 3250 ml 100 ml 1000 ml # Voids 2 1 3 # Bowel Movements 1 2 Result Diagram: 06/22/17 0744 06/22/17 0755 Imaging Last Impressions Head CT 06/21/17 0025 Signed Impressions: Service Date/Time: May 01:44 - CONCLUSION: No acute intracranial disease. Porter Esquivel MD Chest X-Ray 06/21/1724 Signed Impressions: Service Date/Time: May 00:41 - CONCLUSION: 1. Small right pleural effusion and probable right basal atelectasis. 2. Previous heart valve replacement. Porter Esquivel MD Cervical Spine CT 06/21/17 0000 Signed Impressions: Service Date/Time: May 01:44 - CONCLUSION: Minimal anterolisthesis C3 on C4 and C4 on C5 no fracture.. Porter Esquivel MD Brain MRI 06/21/17 0000 Signed Impressions: Service Date/Time: May 15:14 - CONCLUSION: Small focal area of abnormal signal involving the right temporal lobe. The findings would suggest a subacute to chronic area of infarction. A short term followup brain MRI with contrast is suggested. Abdiel Nelson Jr., MD Objective Remarks awake and alert, oriented to place and person, ff all commands, interactive, speech clear no temporal tenderness anicteric, pupils equal , EOM full range of motion no facial asymmetry, tongue midline no nuchal rigidity lungs- no rales regular rhtyhm abdomen soft, nontender motor- moves UE- 4/5 LE- most is able to flex knees, and moves toes grossly no sensory deficits DTRs + A/P Problem List: (1) Fall ICD Code: W19.XXXA - Unspecified fall, initial encounter (2) Sepsis ICD Code: A41.9 - Sepsis, unspecified organism Status: Acute (3) Cellulitis of right leg ICD Code: L03.115 - Cellulitis of right lower limb Status: Acute (4) Encephalopathy ICD Code: G93.40 - Encephalopathy, unspecified (5) Renal insufficiency ICD Code: N28.9 - Disorder of kidney and ureter, unspecified Assessment and Plan 82-year-old female with a PMH of Anxiety, Depression, HTN, Hyperlipidemia, Dementia and Valve Replacement who was sent from SNF secondary to fall w/ head trauma and AMS 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 - neuro looks good History of atrial fibrillation- SR on exam- continue telemetry neuro - stable get Neurology consult. check echo, carotid US PT for eval/tx. neuro checks. 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 ID. ff Acute metabolic encephalopathy: Patient remains confused/disoriented. - seems to be better today Possibly secondary to head trauma or infection. U/a and chest x-ray w/ no signs of infection. Venous stasis changes: Lower extremities, worse on the right. Recent admission for this and wound care was ordered. No obvious signs of infection at this time. Chronic kidney disease: Creatinine 1.38, previously 2.00 on 06/06/17. Will monitor, IVF for hydration, repeat labs in am. DVT Prophylaxis: Pharmacologic contraindication in light of recent head trauma , Mechanical contraindication in light of LE Cellulitis. Problem Qualifiers (1) Sepsis: Qualified Codes: A41.9 - Sepsis, unspecified organism Sam Rouse MD Jun 22, 2017 10:20
--- NOTE | 2017-06-22 15:51 | RADRPT ---
EXAM DATE/TIME: 06/22/2017 10:59 [facility] COMPARISON: No previous studies available for comparison. INDICATIONS : Cerebrovascular accident. MEDICAL HISTORY : Hypercholesterolemia. Hypertension. Right eye cataracts. Dementia. Coronary artery disease. Atrial fibrillation. Kindey stones. Arthritis. Osteoporosis. Depression. Anxiety. Cervical cancer. SURGICAL HISTORY : Tonsillectomy. CABG. Appendectomy. Bilateral eye surgery. Valve replacement. Tubal ligation. ENCOUNTER: Initial ACUITY: 1 day PAIN SCORE: 1/10 LOCATION: Bilateral neck PEAK SYSTOLIC VELOCITIES (cm/sec): ICA/CCA RATIO: Right: 2.6 Left: 1.4 ICA: Right: 89 Left: 76 CCA: Right: 35 Left: 55 ECA: Right: 39 Left: 56 VERTEBRAL: Right: 94 antegrade Left: 110 antegrade Elevated flow velocities and ICA/CCA ratios have been found to correlate with increased degrees of vessel stenosis, calculated as percentage of diameter relative to a normal segment of distal ICA/CCA FINDINGS: RIGHT CAROTID: Minimal plaque at the ICA origin. No significant stenosis is visualized. The waveforms are within no rmal limits. Elevation of the velocity within the distal carotid is felt related to the tortuosity of the vessel. LEFT CAROTID: Heavily calcified atheromatous plaque involving the proximal ICA. The calcified nature generates sign ificant shadowing which limits the grayscale analysis. There is mild elevation of the velocity within the distal ICA relative to the common carotid artery. This is in part due to tortuosity of the vesse l. No elevation of the velocity in the area just distal to the calcified plaque. VERTEBRAL ARTERIES: Antegrade flow is seen in both vertebral arteries. MISCELLANEOUS: None. CONCLUSION: 1. Calcified plaque more abundant on the left. Although there is mild elevation of the velocities of the distal ICAs this is largely in part due to tortuosity of the vessels. No hemodynamically signific ant stenosis felt present. 2. Antegrade flow involving both vertebral arteries. Abdiel Nelson Jr., MD on June 22, 2017 at 15:45 Board Certified Radiologist. This report was verified electronically.
--- NOTE | 2017-06-22 16:57 | HHI.IDPN ---
Subjective Subjective Remarks pt is having foul smelling liquid diarrhea no fever WBC down blood clx neg @ 1 days so fr 2 D echo done Antibiotics cefepime vancomycin Allergies: Coded Allergies: diatrizoate meglumine (Verified Allergy, Severe, 06/21/17) gadobenic acid (Verified Allergy, Severe, 06/21/17) gadodiamide (Verified Allergy, Severe, 06/21/17) gadoteridol (Verified Allergy, Severe, 06/21/17) iodixanol (Verified Allergy, Severe, 06/21/17) iohexol (Verified Allergy, Severe, 06/21/17) benazepril (Verified Allergy, Mild, RESPIRATORY, 06/21/17) captopril (Verified Allergy, Mild, RESPIRATORY, 06/21/17) enalaprilat (Verified Allergy, Mild, RESPIRATORY, 06/21/17) fosinopril (Verified Allergy, Mild, RESPIRATORY, 06/21/17) lisinopril (Verified Allergy, Mild, RESPIRATORY, 06/21/17) quinapril (Verified Allergy, Mild, RESPIRATORY, 06/21/17) Objective . Vital Signs Date Time Temp Pulse Resp B/P (MAP) Pulse Ox O2 Delivery O2 Flow Rate FiO2 06/22/17 16:15 97.5 84 18 122/76 (91) 96 06/22/17 12:33 97.7 69 18 132/60 (84) 96 06/22/17 08:47 115/70 (85) 06/22/17 08:00 81 06/22/17 07:00 96 Nasal Cannula 3.00 06/22/17 06:48 98 06/22/17 06:47 79 3.00 06/22/17 05:42 98 06/22/17 05:41 79 3.00 06/22/17 04:00 98.2 74 18 93/61 (72) 93 06/22/17 03:45 98 06/22/17 03:42 78 3.00 06/22/17 00:50 Nasal Cannula 3.00 06/22/17 00:37 124/80 (95) 06/22/17 00:00 98.0 81 18 98 06/21/17 20:33 98.2 80 18 135/87 (103) 99 06/22/17 06/22/17 06/23/17 15:00 23:00 07:00 Intake Total 1240 ml Balance 1240 ml Intake Oral 240 ml IV Total 1000 ml # Voids 1 # Bowel Movements 5 . Laboratory Tests Test 06/21/17 00:50 06/21/17 20:16 06/22/17 07:44 White Blood Count 19.0 TH/MM3 15.4 TH/MM3 10.6 TH/MM3 Red Blood Count 4.03 MIL/MM3 4.32 MIL/MM3 4.17 MIL/MM3 Hemoglobin 11.7 GM/DL 12.3 GM/DL 12.2 GM/DL Hematocrit 36.5 % 39.7 % 38.3 % Mean Corpuscular Volume 90.5 FL 91.8 FL 91.8 FL Mean Corpuscular Hemoglobin 29.1 PG 28.6 PG 29.4 PG Mean Corpuscular Hemoglobin Concent 32.2 % 31.1 % 32.0 % Red Cell Distribution Width 15.0 % 15.8 % 15.7 % Platelet Count 191 TH/MM3 193 TH/MM3 185 TH/MM3 Mean Platelet Volume 8.7 FL 8.4 FL 9.3 FL Neutrophils (%) (Auto) 89.3 % 86.2 % 79.3 % Lymphocytes (%) (Auto) 6.3 % 5.4 % 10.3 % Monocytes (%) (Auto) 3.8 % 7.8 % 10.2 % Eosinophils (%) (Auto) 0.0 % 0.2 % 0.0 % Basophils (%) (Auto) 0.6 % 0.4 % 0.2 % Neutrophils # (Auto) 17.0 TH/MM3 13.3 TH/MM3 8.4 TH/MM3 Lymphocytes # (Auto) 1.2 TH/MM3 0.8 TH/MM3 1.1 TH/MM3 Monocytes # (Auto) 0.7 TH/MM3 1.2 TH/MM3 1.1 TH/MM3 Eosinophils # (Auto) 0.0 TH/MM3 0.0 TH/MM3 0.0 TH/MM3 Basophils # (Auto) 0.1 TH/MM3 0.1 TH/MM3 0.0 TH/MM3 CBC Comment DIFF FINAL DIFF FINAL DIFF FINAL Differential Comment Laboratory Tests Test 06/21/17 00:50 06/21/17 02:00 06/21/17 20:12 06/22/17 07:55 Lactic Acid Level 1.9 mmol/L Ammonia 27 MCMOL/L Blood Urea Nitrogen 27 MG/DL 32 MG/DL 35 MG/DL Creatinine 1.38 MG/DL 1.64 MG/DL 1.55 MG/DL Random Glucose 88 MG/DL 75 MG/DL 68 MG/DL Total Protein 6.1 GM/DL 6.5 GM/DL 6.4 GM/DL Albumin 2.6 GM/DL 2.6 GM/DL 2.4 GM/DL Calcium Level 8.4 MG/DL 8.7 MG/DL 8.6 MG/DL Alkaline Phosphatase 82 U/L 83 U/L 73 U/L Aspartate Amino Transf (AST/SGOT) 19 U/L 17 U/L 15 U/L Alanine Aminotransferase (ALT/SGPT) 16 U/L 14 U/L 14 U/L Total Bilirubin 0.9 MG/DL 0.7 MG/DL 0.7 MG/DL Sodium Level 136 MEQ/L 137 MEQ/L 140 MEQ/L Potassium Level 4.2 MEQ/L 3.9 MEQ/L 4.1 MEQ/L Chloride Level 97 MEQ/L 101 MEQ/L 107 MEQ/L Carbon Dioxide Level 32.0 MEQ/L 27.4 MEQ/L 20.6 MEQ/L Anion Gap 7 MEQ/L 9 MEQ/L 12 MEQ/L Estimat Glomerular Filtration Rate 37 ML/MIN 30 ML/MIN 32 ML/MIN Total Creatine Kinase 23 U/L Troponin I 0.05 NG/ML Thyroid Stimulating Hormone 3rd Gen 1.210 uIU/ML Microbiology Date/Time Source Procedure Growth Status 06/21/17 00:50 Blood Peripheral Aerobic Blood Culture - Preliminary NO GROWTH IN 1 DAY Resulted 06/21/17 00:50 Blood Peripheral Anaerobic Blood Culture - Preliminary NO GROWTH IN 1 DAY Resulted 06/21/17 00:45 Blood Peripheral Aerobic Blood Culture - Preliminary NO GROWTH IN 1 DAY Resulted 06/21/17 00:45 Blood Peripheral Anaerobic Blood Culture - Preliminary NO GROWTH IN 1 DAY Resulted 06/21/17 02:00 Nasal Washing Influenza Types A,B Antigen (DONATO) - Final NEGATIVE FOR FLU A AND B ANTIGEN.... Complete Imaging Last Impressions Carotid Artery Ultrasound 06/22/17 0000 Signed Impressions: Service Date/Time: Thursday, June 22, 2017 10:59 - CONCLUSION: 1. Calcified plaque more abundant on the left. Although there is mild elevation of the velocities of the distal ICAs this is largely in part due to tortuosity of the vessels. No hemodynamically significant stenosis felt present. 2. Antegrade flow involving both vertebral arteries. Abdiel Nelson Jr., MD Head CT 06/21/175 Signed Impressions: Service Date/Time: May 01:44 - CONCLUSION: No acute intracranial disease. Porter Esquivel MD Chest X-Ray 06/21/1724 Signed Impressions: Service Date/Time: May 00:41 - CONCLUSION: 1. Small right pleural effusion and probable right basal atelectasis. 2. Previous heart valve replacement. Porter Esquivel MD Cervical Spine CT 06/21/17 Signed Impressions: Service Date/Time: May 01:44 - CONCLUSION: Minimal anterolisthesis C3 on C4 and C4 on C5 no fracture.. Porter Esquivel MD Brain MRI 06/21/17 Signed Impressions: Service Date/Time: May 15:14 - CONCLUSION: Small focal area of abnormal signal involving the right temporal lobe. The findings would suggest a subacute to chronic area of infarction. A short term followup brain MRI with contrast is suggested. Abdiel Nelson Jr., MD Physical Exam CONSTITUTIONAL/GENERAL: This is an adequately nourished elderly patient, in no apparent distress. TUBES/LINES/DRAINS: SKIN: No jaundice, rashes, or lesions. Skin temperature appropriate. Not diaphoretic. EYES: Pupils equal and round and reactive. Extraocular motions intact. No scleral icterus. No injection or drainage. Fundi not examined. ENT: Hearing grossly normal. Nose without bleeding or purulent drainage. Oral mucosae without visible erythema, exudates, masses, or lesions. CARDIOVASCULAR: Regular rate and rhythm without murmurs, gallops, or rubs. No JVD. Peripheral pulses symmetric. RESPIRATORY/CHEST: Symmetric, unlabored respirations. Clear to auscultation. Breath sounds equal bilaterally. No wheezes, rales, or rhonchi. GASTROINTESTINAL: Abdomen soft, non-tender, nondistended. No hepato-splenomegaly , or palpable masses. No guarding. Bowel sounds present. GENITOURINARY: Without palpable bladder distension. MUSCULOSKELETAL: Extremities without clubbing,, or edema. + chronic dyscoloration of BLE NEUROLOGICAL: Awake and alert. Confused. Oriented x 2 . 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
[2017-06-22 17:18] LABS: C. DIFF EPI 027 PRESUMPTIVE POSITIVE (NEGATIVE)
--- NOTE | 2017-06-22 18:05 | ECHRPT ---
Indication: cva/tia CONCLUSIONS Normal left ventricular size. Wall thickness is normal. The left ventricular systolic function is normal with an estimated ejection fraction in the range of 55-60%. There is a flattened septum in systole and diastole consistent with right ventricle pressure and vol ume overload. The right ventricle is moderately dilated. The right ventricular systoilc function is severely decreased. The left atrial size is mildly dilated. The right atrial size is mildly dilated. The aortic root and proximal ascending aorta are not well visualized. Suspected prior stented bioprosthetic valve (no history provided to confirm). Cannot exclude mild st enosis based on the gradient. Mild aortic valve stenosis. [id number] aortic valve regurgitation. There is moderate to severe tricuspid valve regurgitation. There is estimated severe pulmonary hypertension present (86 mmHg). Moderate pulmonary valve regurgitation. The inferior vena cava is dilated. BP: 115 / 70 HR: 81 Rhythm: MEASUREMENTS (Male / Female) Normal Values Technical Quality: 2D ECHO LV Diastolic Diameter PLAX 3.2 cm 4.2 - 5.9 / 3.9 - 5.3 cm LV Systolic Diameter PLAX 2.2 cm IVS Diastolic Thickness 0.9 cm 0.6 - 1.0 / 0.6 - 0.9 cm LVPW Diastolic Thickness 0.6 cm 0.6 - 1.0 / 0.6 - 0.9 cm LV Relative Wall Thickness 0.5 LVOT Diameter 2.0 cm DOPPLER AV Peak Velocity 164.0 cm/s AV Peak Gradient 10.8 mmHg AV Mean Gradient 6.0 mmHg AV Velocity Time Integral 36.8 cm LVOT Peak Velocity 89.8 cm/s LVOT Peak Gradient 3.2 mmHg LVOT Velocity Time Integral 17.5 cm AV Area Cont Eq vti 1.5 cm AV Area Cont Eq pk 1.7 cm MV Peak Velocity 224.0 cm/s MV Peak Gradient 20.1 mmHg MV Mean Velocity 142.5 cm/s MV Mean Gradient 10.5 mmHg MR Peak Velocity 508.0 cm/s MR Peak Gradient 103.2 mmHg TR Peak Velocity 463.0 cm/s TR Peak Gradient 85.7 mmHg FINDINGS LEFT VENTRICLE Normal left ventricular size. Wall thickness is normal. The left ventricular systolic function is normal with an estimated ejection fraction in the range of 55-60%. There is a flattened septum in systole and diastole consistent with right ventricle pressure and vol ume overload. RIGHT VENTRICLE The right ventricle is moderately dilated. The right ventricular systoilc function is severely decreased. LEFT ATRIUM The left atrial size is mildly dilated. RIGHT ATRIUM The right atrial size is mildly dilated. ATRIAL SEPTUM Normal atrial septal thickness without atrial level shunting by limited color doppler interrogation. AORTA The aortic root and proximal ascending aorta are not well visualized. MITRAL VALVE Suspected prior stented bioprosthetic valve (no history provided to confirm). Cannot exclude mild st enosis based on the gradient AORTIC VALVE Mild aortic valve stenosis. Ibsz-ol-ryuqgqot aortic valve regurgitation. TRICUSPID VALVE There is moderate to severe tricuspid valve regurgitation. There is estimated severe pulmonary hypertension present (86 mmHg). PULMONARY VALVE Moderate pulmonary valve regurgitation. VESSELS The inferior vena cava is dilated. PERICARDIUM No pericardial effusion. Cody Menon MD (Electronically Signed) Final Date:22 June 2017 18:05
[2017-06-22] MEDS: VANCOMYCIN INJ 1,250 MG in SODIUM CHLOR 0.9% 250 ML INJ 250 ML IV SCH (21:37)
[2017-06-23] VITALS (8 sets, daily range): BP systolic 93–143; BP diastolic 56–80; PULSE 72–97; RESP 18–20; TEMP 96.2–98.6; O2SAT 95–99
[2017-06-23] MEDS: CEFEPIME INJ 1,000 MG in SODIUM CHLORIDE 0.9% INJ 100 ML IV SCH (02:38)
[2017-06-23] MEDS ORDERED: VANCOMYCIN 500 MG VIAL (FOR ORAL USE ONLY) PO ONE (08:15)
[2017-06-23] MEDS: metroNIDAZOLE 500 MG TAB PO SCH ×3 (08:58→22:23)
[2017-06-23] MEDS: SODIUM CHLORIDE 0.9% FLUSH 10 ML FLUSH IV FLUSH SCH ×2 (08:58→21:00)
[2017-06-23] MEDS: LACTOBACILLUS ACIDOPHILUS TAB PO SCH ×3 (08:58→18:00)
[2017-06-23] MEDS: METOPROLOL TARTRATE 25 MG TAB PO SCH ×2 (08:58→22:23)
[2017-06-23] MEDS: SODIUM CHLOR 0.9% 1000 ML INJ 1,000 ML IV SCH ×3 (08:58→23:16)
--- NOTE | 2017-06-23 12:03 | HHI.PR ---
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 Mann Objective Vitals Vital Signs Date Time Temp Pulse Resp B/P (MAP) Pulse Ox O2 Delivery O2 Flow Rate FiO2 06/23/17 11:26 83 06/23/17 11:21 97 Nasal Cannula 3.00 06/23/17 08:17 98.0 97 20 93/56 (68) 06/23/17 07:52 73 06/23/17 04:25 97.2 78 18 113/61 (78) 96 06/23/17 00:14 96.2 88 18 125/74 (91) 98 06/22/17 21:30 97 Nasal Cannula 3.00 06/22/17 20:41 96.3 73 18 135/74 (94) 98 06/22/17 16:15 97.5 84 18 122/76 (91) 96 06/22/17 12:33 97.7 69 18 132/60 (84) 96 I/O 06/22/17 06/22/17 06/22/17 06/23/17 06/23/17 06/23/17 07:00 15:00 23:00 07:00 15:00 23:00 Intake Total 100 ml 1240 ml 1000 ml 262.5 ml 933 ml Balance 100 ml 1240 ml 1000 ml 262.5 ml 933 ml Intake Oral 240 ml IV Total 100 ml 1000 ml 1000 ml 262.5 ml 933 ml # Voids 3 1 1 3 # Bowel Movements 2 5 0 1 Result Diagram: 06/22/17 0744 06/22/17 0755 Imaging Last Impressions Carotid Artery Ultrasound 06/22/17 0000 Signed Impressions: Service Date/Time: Thursday, June 22, 2017 10:59 - CONCLUSION: 1. Calcified plaque more abundant on the left. Although there is mild elevation of the velocities of the distal ICAs this is largely in part due to tortuosity of the vessels. No hemodynamically significant stenosis felt present. 2. Antegrade flow involving both vertebral arteries. Abdiel Nelson Jr., MD Head CT 06/21/17 0025 Signed Impressions: Service Date/Time: May 01:44 - CONCLUSION: No acute intracranial disease. Porter Esquivel MD Chest X-Ray 06/21/17 0025 Signed Impressions: Service Date/Time: May 00:41 - CONCLUSION: 1. Small right pleural effusion and probable right basal atelectasis. 2. Previous heart valve replacement. Porter Esquivel MD Cervical Spine CT 06/21/17 0000 Signed Impressions: Service Date/Time: May 01:44 - CONCLUSION: Minimal anterolisthesis C3 on C4 and C4 on C5 no fracture.. Porter Esquivel MD Brain MRI 06/21/17 0000 Signed Impressions: Service Date/Time: May 15:14 - CONCLUSION: Small focal area of abnormal signal involving the right temporal lobe. The findings would suggest a subacute to chronic area of infarction. A short term followup brain MRI with contrast is suggested. Abdiel Nelson Jr., MD Objective Remarks awake and alert, oriented to place and person, ff all commands, interactive, speech clear no temporal tenderness, superficial light bruise- left temporal area anicteric, pupils equal , EOM full range of motion no facial asymmetry, tongue midline no nuchal rigidity lungs- no rales regular rhythm on exam abdomen soft, nontender motor- moves UE- 4/5- left side weak LE- most is able to flex knees, and moves toes grossly no sensory deficits DTRs + A/P Problem List: (1) Fall ICD Code: W19.XXXA - Unspecified fall, initial encounter (2) Sepsis ICD Code: A41.9 - Sepsis, unspecified organism Status: Acute (3) Cellulitis of right leg ICD Code: L03.115 - Cellulitis of right lower limb Status: Acute (4) Encephalopathy ICD Code: G93.40 - Encephalopathy, unspecified (5) Renal insufficiency ICD Code: N28.9 - Disorder of kidney and ureter, unspecified Assessment and Plan 82-year-old female with a PMH of Anxiety, Depression, HTN, Hyperlipidemia, Dementia and Valve Replacement who was sent from SNF secondary to fall w/ head trauma and AMS Acute to subacute infarction- involving right temporal lobe area S/P Fall: s/p fall out of bed, +head trauma, - MS improved History of atrial fibrillation- SR on exam- continue telemetry neuro -check get Neurology consult. PT for eval/tx. neuro checks. continue on BB- low dose was on coumadin as OP- held due to recent fall with reported left temporal area superficial hematoma/contusion - on exam today - no hematoma, light bruise get another MRI- if no bleed start Lovenox/anticoagulation d/w - consult her seals engraver- known to Dr. 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 ID ff DC Cefepime- with C diff - d/w ID- Dr. Schwab pharmacy consult for dosing C diff diarrhea started on Vancomycin and po Flagyl DC CEfepime ID ff Acute metabolic encephalopathy: MS improved U/a and chest x-ray w/ no signs of infection. Acute kidney injury with underlying CKI continue IVF- ff BMP Venous stasis changes:no erythema. No obvious signs of infection at this time. Acute on Chronic kidney disease: Creatinine 1.38, previously 2.00 on 06/06/17. ff BMP continue IVF Problem Qualifiers (1) Sepsis: Qualified Codes: A41.9 - Sepsis, unspecified organism Sam Rouse MD Jun 23, 2017 12:03
[2017-06-23] MEDS: VANCOMYCIN 500 MG VIAL (FOR ORAL USE ONLY) PO SCH ×2 (13:52→22:29)
[2017-06-23 14:05] LABS: BASOPHIL % 0.2 % (0.0-2.0); EOSINOPHIL % 0.1 % (0.0-4.0); HEMATOCRIT 40.3 % (35.0-46.0); HEMO FLAGS DIFF FINAL; LYMPH % 10.9 % (9.0-44.0); LYMPHOCYTE # 1.1 TH/MM3 (1.0-4.8); MEAN CELL VOLUME 93.4 FL (80.0-100.0); MEAN CORPUSCULAR HEMOGLOBIN 29.5 PG (27.0-34.0); MEAN CORPUSCULAR HGB CONC 31.5 % (32.0-36.0); MONO % 6.8 % (0.0-8.0); PLATELET COUNT 162 TH/MM3 (150-450); RED BLOOD COUNT 4.31 MIL/MM3 (4.00-5.30); WHITE BLOOD COUNT 9.8 TH/MM3 (4.0-11.0)
[2017-06-23 14:30] LABS: POTASSIUM 4.2 MEQ/L (3.5-5.1)
--- NOTE | 2017-06-23 15:54 | RADRPT ---
EXAM DATE/TIME: 06/23/2017 15:19 [facility] COMPARISON: CT BRAIN W/O CONTRAST, June 21, 2017, 1:44. MRI BRAIN W/O CONTRAST, June 21, 2017, 15:14. INDICATIONS : Altered mental status. Trauma patient with contusion to forehead F/U prior abnormal MRI. MEDICAL HISTORY : Hypertension. SURGICAL HISTORY : Open heart. Cataract. ENCOUNTER: Subsequent ACUITY: 3 day PAIN SCORE: 0/10 LOCATION: cranial TECHNIQUE: Multiplanar, multisequence MRI of the brain was performed without contrast. FINDINGS: A small focal area of signal abnormality is again noted involving the right temporal lobe with s mall area centrally of decreased signal which is mildly more prominent than on the prior study. This is surrounded by an ill-defined area of increased signal. This again measures up to approximately 1 c m in diameter. There is high signal on the flair and T2-weighted sequences and low signal on T1-weigh esteban sequences. There is patchy restricted diffusion noted on the diffusion weighted images. This oscar ins abnormal on the T2 gradient images with decreased signal. ADC map is abnormal as well. There are no other focal abnormalities. There is no acute hemorrhage or mass effect. The ventricular system rem ains within normal limits. The posterior fossa and brainstem remain unremarkable. CONCLUSION: Mild interval change in the small focal area of abnormal signal in right temporal lob e most consistent with a small area of subacute infarction. Continued MR followup is recommended in 7 -10 days. Monico Mendoza MD on June 23, 2017 at 15:47 Board Certified Radiologist. This report was verified electronically.
[2017-06-23] MEDS ORDERED: Vancomycin Consult Pharmacy 1 EA OTHER SCH (16:00)
[2017-06-23] MEDS ORDERED: PHARMACY ORDERED LAB ONE (21:45)
[2017-06-23] MEDS: VANCOMYCIN INJ 1,250 MG in SODIUM CHLOR 0.9% 250 ML INJ 250 ML IV SCH (22:22)
[2017-06-24] VITALS (7 sets, daily range): BP systolic 96–114; BP diastolic 55–67; PULSE 76–103; RESP 18–20; TEMP 97–98.2; O2SAT 94–99
[2017-06-24] MEDS: VANCOMYCIN 500 MG VIAL (FOR ORAL USE ONLY) PO SCH ×4 (02:05→20:22)
[2017-06-24] MEDS: metroNIDAZOLE 500 MG TAB PO SCH ×3 (05:26→20:22)
[2017-06-24] MEDS: SODIUM CHLOR 0.9% 1000 ML INJ 1,000 ML IV SCH (05:31)
[2017-06-24] MEDS: METOPROLOL TARTRATE 25 MG TAB PO SCH ×2 (08:59→20:18)
[2017-06-24] MEDS: LACTOBACILLUS ACIDOPHILUS TAB PO SCH ×3 (09:05→18:00)
[2017-06-24] MEDS: SODIUM CHLORIDE 0.9% FLUSH 10 ML FLUSH IV FLUSH SCH ×2 (09:05→20:22)
--- NOTE | 2017-06-24 09:31 | HHI.PR ---
Subjective Remarks new dysarthria, new right sided weakness/plegia decreased 02 sats stools x 1 overnight 09/23 seen with at bedside- very supportive apparently was on coumadin and this was DC due to elevated INR-- last Jun 07 and was sent to Rehab i don't think she was ever restarted on this review reports- high risks of fall per - human resources team member is Dr. Mann Objective Vitals Vital Signs Date Time Temp Pulse Resp B/P (MAP) Pulse Ox O2 Delivery O2 Flow Rate FiO2 06/24/17 08:41 97.5 76 18 96/55 (69) 99 06/24/17 07:04 98.2 85 18 101/60 (74) 96 06/24/17 01:50 86 06/24/17 00:00 98.0 78 20 98/56 (70) 95 06/23/17 21:32 93 Nasal Cannula 3.00 06/23/17 20:00 98.2 86 18 99/68 (78) 95 06/23/17 16:53 98.6 86 18 143/63 (89) 99 06/23/17 12:31 97.3 72 18 136/80 (98) 98 06/23/17 11:26 83 06/23/17 11:21 97 Nasal Cannula 3.00 I/O 06/23/17 06/23/17 06/23/17 06/24/17 06/24/17 06/24/17 07:00 15:00 23:00 07:00 15:00 23:00 Intake Total 262.5 ml 933 ml 287 ml 1000 ml Balance 262.5 ml 933 ml 287 ml 1000 ml Intake Oral 120 ml IV Total 262.5 ml 933 ml 167 ml 1000 ml # Voids 3 3 # Bowel Movements 1 2 Result Diagram: 06/23/17 1345 06/23/17 1345 Imaging Last Impressions Brain MRI 06/23/17 0000 Signed Impressions: Service Date/Time: Friday, June 23, 2017 15:19 - CONCLUSION: Mild interval change in the small focal area of abnormal signal in right temporal lobe most consistent with a small area of subacute infarction. Continued MR followup is recommended in 7-10 days. Monico Mendoza MD Carotid Artery Ultrasound 06/22/17 0000 Signed Impressions: Service Date/Time: Thursday, June 22, 2017 10:59 - CONCLUSION: 1. Calcified plaque more abundant on the left. Although there is mild elevation of the velocities of the distal ICAs this is largely in part due to tortuosity of the vessels. No hemodynamically significant stenosis felt present. 2. Antegrade flow involving both vertebral arteries. Abdiel Nelson Jr., MD Head CT 06/21/175 Signed Impressions: Service Date/Time: May 01:44 - CONCLUSION: No acute intracranial disease. Porter Esquivel MD Chest X-Ray 06/21/1724 Signed Impressions: Service Date/Time: May 00:41 - CONCLUSION: 1. Small right pleural effusion and probable right basal atelectasis. 2. Previous heart valve replacement. Porter Esquivel MD Cervical Spine CT 06/21/17 0000 Signed Impressions: Service Date/Time: May 01:44 - CONCLUSION: Minimal anterolisthesis C3 on C4 and C4 on C5 no fracture.. Porter Esquivel MD Objective Remarks awakevery dysarthric,not ff commands, stated her name, 's name, "hospital " no temporal tenderness, superficial light bruise-- left temporal area- almost reseolved anicteric, pupils equal no facial asymmetry, no nuchal rigidity lungs- no rales regular rhythm on exam abdomen soft, nontender motor- moves UE-flailing left upper extremity right sided - 0/5 LE- most is able to flex knees, and moves toes grossly no sensory deficits DTRs + A/P Problem List: (1) Fall ICD Code: W19.XXXA - Unspecified fall, initial encounter (2) Sepsis ICD Code: A41.9 - Sepsis, unspecified organism Status: Acute (3) Cellulitis of right leg ICD Code: L03.115 - Cellulitis of right lower limb Status: Acute (4) Encephalopathy ICD Code: G93.40 - Encephalopathy, unspecified (5) Renal insufficiency ICD Code: N28.9 - Disorder of kidney and ureter, unspecified Assessment and Plan 82-year-old female with a PMH of Anxiety, Depression, HTN, Hyperlipidemia, Dementia and Valve Replacement who was sent from SNF secondary to fall w/ head trauma and AMS New onset dysarthia, right sided plegia r/o new CVA Acute to subacute infarction- right temporal lobe area - admitted 06/21 S/P Fall: s/p fall out of bed, +head trauma,- superficial temporal contusion- almost resolved stat head CT-/MRI ASpirin now. Neurology consulted start heparin drip if repeat head CT no acute bleed Acute respiratory Failure- likely fluid overload stat ABG, CXR- reviewed- + right pleural effusion, BNP, d dimer Acute KI with underlying CKD gentle fluids Lasix 40 mg IV x [address] [facility] check US. Nephrology consult History of atrial fibrillation- SR on exam- continue telemetry neuro -check Neurology consult.ed PT for eval/tx. neuro checks. continue on BB- low dose was on coumadin as OP- held due to recent fall with reported left temporal area superficial hematoma/contusion - on exam today - no hematoma, light bruise 06/23 MRI- consult her human resources team member- known to Dr. Mann Fever, MS change, leukocytosis r/o sepsis possible prosthetic valve endocarditis - SIRS: T down Blood Cultures pending- negative so far On IV vancomycin - pharmacy dosing- d/w pharmacist ID ff DC Cefepime- with C diff - d/w ID- Dr. Schwab 06/23 C diff diarrhea on Vancomycin and po Flagyl DC CEfepime ID ff Venous stasis changes:no erythema. No obvious signs of infection at this time. d/w family- regarding recent event continue medical management no aggressive measures Problem Qualifiers (1) Sepsis: Qualified Codes: A41.9 - Sepsis, unspecified organism Sam Rouse MD Jun 24, 2017 09:31
--- NOTE | 2017-06-24 09:45 | RADRPT ---
EXAM DATE/TIME: 06/24/2017 09:53 [facility] COMPARISON: CHEST SINGLE AP, June 21, 2017, 0:41. INDICATIONS : Short of breath. MEDICAL HISTORY : Hypertension. Hypercholesterolemia. Coronary artery disease. SURGICAL HISTORY : CABG. ENCOUNTER: Initial ACUITY: 4 - 6 days PAIN SCORE: 0/10 LOCATION: Bilateral chest FINDINGS: Median sternotomy wires are noted status post cardiac surgery. The heart is enlarged. Small right p leural effusion and tiny left pleural effusion is noted. Scattered atelectatic changes are noted christine aterally. Degenerative changes and scoliosis of the thoracolumbar spine are noted. CONCLUSION: 1. Small right pleural effusion and tiny left pleural effusion. 2. Scattered atelectatic changes bilaterally. 3. Cardiomegaly. 4. Degenerative changes and scoliosis of the thoracolumbar spine. Yaya Martinez MD on June 24, 2017 at 9:37 Board Certified Radiologist. This report was verified electronically.
[2017-06-24 09:50] LABS: AUTOMATED NEUTROPHIL # 14.9 TH/MM3 (1.8-7.7); BASOPHIL % 0.2 % (0.0-2.0); EOSINOPHIL % 0.1 % (0.0-4.0); HEMATOCRIT 37.6 % (35.0-46.0); HEMO FLAGS DIFF FINAL; LYMPH % 3.6 % (9.0-44.0); LYMPHOCYTE # 0.6 TH/MM3 (1.0-4.8); MEAN CELL VOLUME 92.3 FL (80.0-100.0); MEAN CORPUSCULAR HEMOGLOBIN 29.3 PG (27.0-34.0); MEAN CORPUSCULAR HGB CONC 31.8 % (32.0-36.0); MONO % 7.2 % (0.0-8.0); NEUT % 88.9 % (16.0-70.0); PLATELET COUNT 173 TH/MM3 (150-450); RED BLOOD COUNT 4.08 MIL/MM3 (4.00-5.30); RED CELL DISTRIBUTION WIDTH 15.5 % (11.6-17.2); WHITE BLOOD COUNT 16.7 TH/MM3 (4.0-11.0)
[2017-06-24] MEDS ORDERED: ASPIRIN 325 MG TAB PO SCH (10:00)
[2017-06-24 10:02] LABS: BICARBONATE 18.6 MEQ/L (21.0-32.0); POTASSIUM 3.8 MEQ/L (3.5-5.1)
[2017-06-24 10:08] LABS: BLOOD GAS BASE EXCESS -6.3 mmol/L (-2-2); BLOOD GAS CARBOXYHEMOGLOBIN 1.2 % (0-4); BLOOD GAS HCO3 19 mmol/L (22-26); BLOOD GAS METHEMOGLOBIN 0.7 % (0-2); BLOOD GAS O2 HGB SATURATION 94 % (90-100); BLOOD GAS OXYGEN CONTENT 15.4 Vol % (12.0-20.0); BLOOD GAS PCO2 38 mmHg (38-42); BLOOD GAS PO2 84 mmHg (61-120); BLOOD GAS TOTAL HGB 11.6 G/DL (12.0-16.0); CRITICAL VALUE NO; DRAW SITE LT BRACHIAL; LITER FLOW 3 L/M; NUMBER OF ARTERIAL PUNCTURES 1; OXYGEN DEVICE NASAL CANNULA; TEMP CORR TO 98.6
[2017-06-24 10:09] LABS: STAT YES
[2017-06-24] MEDS ORDERED: FUROSEMIDE 40 MG/4 ML VIAL IV PUSH ONE (10:30)
[2017-06-24] MEDS ORDERED: HEPARIN-D5W 25,000 U/250 ML 250 ML IV SCH (12:30)
--- NOTE | 2017-06-24 12:41 | MB ---
cc: KANA TAFOYA M.D. DATE OF : 1935 DATE OF CONSULTATION: 06/24/2017 REASON FOR CONSULTATION: Possible stroke. HISTORY OF PRESENT ILLNESS: The patient is 82 years old with depression, dementia, valve replacement, hypertension, hyperlipidemia, came in from SNF due to a fall, head trauma, change in mental status, at times has fallen out of bed. She has an MRI done that showed a small focal right temporal infarct, however, from yesterday at some point in time she stopped moving her right arm. The patient has a history now of some respiratory issues, history of atrial fibrillation, off of Coumadin due to falls. She had also fever, on antibiotics, ruling out possible endocarditis. She is on IV vanco. Blood cultures are so far negative followerd by ID. She has a history of C. difficile on vancomycin and Flagyl. Also some chronic kidney issues ongoing. PHYSICAL EXAMINATION: Vital signs: Temperature 97.5, currently heart rate 76, respiratory rate 18, blood pressure 96/55, sating 99%, three liters nasal cannula. She is lying in bed in no distress, keeps her eyes closure, forced eye closure. When I do open her eyes, seems like pupils are reactive. Face looks symmetrical. She is nonverbal. She just makes grunting noises. She does not really follow commands but withdraws her left arm and her legs to noxious stimuli, will not move her right arm, will not lift antigravity, she is flaccid. LABORATORY DATA: Labs are reviewed. White count 16.7. Coag panel, INR is 1.3 on admission. Chemistries: BUN is 43, creatinine 2.14. Her GFR is 22. BMP is more than 5000, TSH 1.210, albumin 2.4, CO2 was 18.6 positive for C. Diff, cultures so far are negative. IMAGING STUDIES Her last MRI of the brain shows interval change in small focal area, abnormal signal in the right temporal lobe most consistent with small subacute infarct. Carotid ultrasound, calcified plaque more blunted on the left although mild elevation of velocities, ICA is larger partly due to tortuosity but no significant stenosis felt. IMPRESSION New right-sided hemiparesis, may be new stroke left hemispheric, she has a small focal stroke on the right temporal lobe. Last echo shows an EF of 55-60%, dilated atria, right ventricle moderately dilated. At this point in time I would recommend getting another MRI of the brain. If she does in fact have another stroke, consider instead of aspirin, putting her back on anticoagulation. Will continue current recommendations. Continue care per cardiology and ID. Further recommendations will be made accordingly. MD ALVARO Zelaya/EBENEZER /11:37 AM /12:19 PM
--- NOTE | 2017-06-24 13:17 | MB ---
cc: PATRICK THORNTON MD, HANSCY M.D. DATE OF CONSULTATION: 06/24/2017. REASON FOR CONSULTATION: Shortness of breath and syncopal episode. HISTORY OF PRESENT ILLNESS: Mrs. Jeffries is a 82-year-old female followed by Dr. Thornton with history of high blood pressure, hyperlipidemia, coronary artery disease, coronary artery bypass grafting, aortic valve replacement [facility]. She was admitted due to a fall and syncopal episode. She was having depressed mental status and had head injury. She has some shortness of breath. I was consulted for evaluation and management. The chart was reviewed. The patient was evaluated. I discussed the case with the patient and her . ALLERGIES: 1. GADOBENIC ACID. 2. BENAZEPRIL. 3. CAPTOPRIL. 4. ENALAPRIL. 5. FOSINOPRIL. 6. LISINOPRIL. 7. QUINAPRIL. SOCIAL HISTORY: She has one or two cocktails a day. She quit smoking in 2006. FAMILY HISTORY: Noncontributory to her current medical condition. MEDICATIONS: Currently the patient is on: 1. Maxipime. 2. Vancomycin. 3. Acetaminophen. 4. Aspirin. 5. Lasix. 6. Metoprolol. 7. Metronidazole. 8. Reglan. REVIEW OF SYSTEMS: Currently the patient refers no chest pain, no chest discomfort, some shortness of breath, no fever. PHYSICAL EXAMINATION: GENERAL: Alert, fully oriented. VITAL SIGNS: Blood pressure 96/55, pulse 76, respiratory rate 18. LUNGS: Ventilated. CARDIOVASCULAR: S1-S2. Regular. No gallop. ABDOMEN: Abdomen soft, no mass. No bruits. EXTREMITIES: No edema. EKGS Electrocardiogram shows sinus rhythm with PACs. LABORATORY DATA: Hemoglobin is 12, white blood cell 16.7. Potassium 3.8, creatinine 2.14. BNP today is greater than 5000. INR 1.3. ASSESSMENT AND RECOMMENDATIONS: Mrs. Jeffries refers some shortness of breath. Since hospitalization, the shortness of breath has worsened. Her BNP is greater than 5000. She may be experiencing some heart failure. Her medication will be re-evaluated. Because the blood pressure is so low, it very difficult to optimize her medical management. Brain MRI was performed yesterday that indicates right temporal lobe subacute infarction. She experienced a new TIA episode today. She will need anticoagulation LUIS. Further decision by neurologist.Case discussed with Dr Rouse. I discussed also the case with the . I am going to re-evaluate her medications. As mentioned before, because of the low blood pressure, optimization is very difficult. Again MRI shows no bleeding. Patient need anticoagulation LUIS. I will continue to monitor her today and follow up tomorrow morning by Dr. Thornton. MD SARAH Schulz/GIA /12:31 PM /1:03 PM BENJAMIN
--- NOTE | 2017-06-24 13:42 | RADRPT ---
EXAM DATE/TIME: 06/24/2017 13:11 [facility] COMPARISON: MRI BRAIN W/O CONTRAST, June 23, 2017, 15:19. CT BRAIN W/O CONTRAST, June 21, 2017, 1:44. INDICATIONS : Altered mental status RADIATION DOSE: 56.35 CTDIvol (mGy) MEDICAL HISTORY : Dementia. Hypertension. cervical cancer SURGICAL HISTORY : Hysterectomy. Tonsillectomy. CABG ENCOUNTER: Initial ACUITY: 1 day PAIN SCALE: Non-responsive LOCATION: Bilateral head TECHNIQUE: Multiple contiguous axial images were obtained of the head. Using automated exposure control and adj ustment of the mA and/or kV according to patient size, radiation dose was kept as low as reasonably a chievable to obtain optimal diagnostic quality images. DICOM format image data is available electro nically for review and comparison. FINDINGS: There are tiny acute subdural hematomas within the frontal lobes bilaterally measuring 6 mm on the ri ght and 3 mm on the left. There is no midline shift. There is significant diffuse cerebral atrophy bilaterall y. Mild periventricular white matter small vessel ischemic changes are noted bilaterally. No acute infarctio n is noted. The bone windows are unremarkable. CONCLUSION: 1. Tiny acute subdural hematomas within the frontal lobes bilaterally measuring 6 mm on the right an d 3 mm on the left which result in no midline shift or significant mass effect on the adjacent sulci. 2. Diffuse cerebral atrophy. 3. Mild periventricular white matter small vessel ischemic changes bilaterally. Yaya Martinez MD on June 24, 2017 at 13:27 Board Certified Radiologist. This report was verified electronically.
[2017-06-24 13:58] LABS: INTERNATIONAL NORMALIZED RATIO 1.9 RATIO; PROTHROMBIN TIME - PATIENT 21.4 SEC (9.8-11.6)
[2017-06-24 15:04] LABS: APTT (PATIENT) 33.2 SEC (24.3-30.1)
--- NOTE | 2017-06-24 16:54 | RADRPT ---
EXAM DATE/TIME: 06/24/2017 15:45 [facility] COMPARISON: CT BRAIN W/O CONTRAST, June 06, 2017, 8:11. CT BRAIN W/O CONTRAST, June 24, 2017, 13:11. MRI BRAIN W/O CONTRAST, June 21, 2017, 15:14. MRI BRAIN W/O CONTRAST, June 23, 2017, 15:19. INDICATIONS : New onset right arm weakness. MEDICAL HISTORY : Hypertension. SURGICAL HISTORY : CABG ENCOUNTER: Initial ACUITY: 1 day PAIN SCORE: 0/10 LOCATION: cranial TECHNIQUE: Multiplanar, multisequence MRI of the brain was performed without contrast. FINDINGS: Image quality is compromised by patient motion; additional motion suppression sequences and repeat se quences were performed. The study still has motion degradation. CT performed earlier today and demonstrated bilateral sub-dural fluid collections in the high convexi ty region. On the MR, the signal within the subdural space is isointense to CSF on all pulse sequenc es. No suppression on the susceptibility weighted sequences. There is a new MR finding of scattered small areas of restricted diffusion in the central cerebellar hemispheres bilaterally and a focal area of restricted diffusion in the left low convexity occipital region which measures 1.5 cm. The largest area of restricted diffusion in the cerebellum measures 8 mm. There is also a small new area of restricted diffusion in the right infracalcarine occipital cor izzy and tiny areas of bilateral restricted diffusion in the high convexity parietal-occipital white m atter. There is layering intraventricular blood in the dependent occipital horns bilaterally, similar to jolly or. The signal abnormality seen in the posterior right temporal lobe is similar in size when compared to prior MRI examinations and is characterized by peripheral restricted diffusion, mixed T1 and T2 prolo ngation and, on the T1 sagittal images, there is evidence of T1 shortening. This suggests a hemorrha gic infarction. Midline structures are nondeviated. Stable appearance to the diffuse T2 prolongation in the supraten torial white matter CONCLUSION: 1. Interval development of multifocal acute infarcts when compared to yesterday's MRI. These are loc ated in the posterior left occipital cortex, scattered in the posterior high parietal occipital white matter, and bilateral in the mid cerebellar hemispheres. 2. 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 There is no explanation for the density differential seen on CT scan. Recommend followup CT in one day to see i f the CT finding persists. 3. The focal lesion in the posterior right temporal lobe has similar features to prior MR, probably r epresenting a a subacute hemorrhagic infarction. Abdiel Aceves MD on June 24, 2017 at 16:16 Board Certified Radiologist. This report was verified electronically.
--- NOTE | 2017-06-24 17:20 | RADRPT ---
EXAM DATE/TIME: 06/24/2017 16:16 [facility] COMPARISON: No previous studies available for comparison. INDICATIONS : Increased BUN and creatinine. MEDICAL HISTORY : Hypertension. Hearing loss. Dementia. Coronary aretery disease. Cervical cancer. Kidney stones. A rthritis. Depression. Anxiety. SURGICAL HISTORY : Tonsillectomy. CABG. Appendectomy. Bilateral cataract surgery. Hysterectomy. Tubal ligation. Heart va lve replacement. ENCOUNTER: Initial ACUITY: 1 day PAIN SCORE: 0/10 LOCATION: Bilateral flank MEASUREMENTS: RIGHT KIDNEY: 9.3 x 5.0 x 4.4 cm LEFT KIDNEY: 8.8 x 3.5 x 4.3 cm FINDINGS: RIGHT KIDNEY: Renal cortex is normal in thickness and echotexture. No hydronephrosis, stone, or mass. Smooth nathan in simple cyst lower pole measures 4.4 x 4.3 cm. LEFT KIDNEY: Renal cortex is normal in thickness and echotexture. No hydronephrosis, stone, or mass. BLADDER: Blackman catheter, decompressed bladder. CONCLUSION: 1. The left kidney is smaller than the right. No evidence of hydronephrosis on either side. 2. Incidental note of a shadowing gallstone. Abdiel Aceves MD on June 24, 2017 at 17:16 Board Certified Radiologist. This report was verified electronically.
--- NOTE | 2017-06-24 18:07 | PD.CONS ---
HPI Consult Requested By Reason for Consult Acute renal sufficiency. Metabolic acidosis. Primary Care Physician Venus Anaya MD History of Present Illness This patient is an 82-year-old female with a history of hypertension, coronary disease and dementia as well as atrial fibrillation admitted to this institution on June 21 after sustaining a fall. Being treated for cellulitis of the leg. Ejection fraction said to be 55-60% this admission. Previous serum creatinine levels were within normal range although one recently was elevated several days prior to this admission. Patient evaluated by infectious disease for clostridium difficile as well as sepsis. She was having diarrhea. Patient's serum creatinine level was 1.38 at the time of presentation deteriorating to 2.14 date of consultation. Bicarbonate level also has been falling these last few days with hypotension. 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 Review of Systems ROS Limitations: Clinical Condition, Altered Mental Status Past Family Social History Allergies: Coded Allergies: diatrizoate meglumine (Verified Allergy, Severe, 06/21/17) gadobenic acid (Verified Allergy, Severe, 06/21/17) gadodiamide (Verified Allergy, Severe, 06/21/17) gadoteridol (Verified Allergy, Severe, 06/21/17) iodixanol (Verified Allergy, Severe, 06/21/17) iohexol (Verified Allergy, Severe, 06/21/17) benazepril (Verified Allergy, Mild, RESPIRATORY, 06/21/17) captopril (Verified Allergy, Mild, RESPIRATORY, 06/21/17) enalaprilat (Verified Allergy, Mild, RESPIRATORY, 06/21/17) fosinopril (Verified Allergy, Mild, RESPIRATORY, 06/21/17) lisinopril (Verified Allergy, Mild, RESPIRATORY, 06/21/17) quinapril (Verified Allergy, Mild, RESPIRATORY, 06/21/17) Past Medical History Dementia Hypertension Coronary disease Atrial fibrillation Past Surgical History Cardiology bypass grafting. Reported Medications Reported Meds & Active Scripts Active Reported Citalopram (Citalopram Hydrobromide) 10 Mg Tab 10 Mg PO DAILY Magnesium Citrate 100 Mg Tab 100 Mg PO DAILY PRN Enema Disposable (Sodium Phosphates) 19 Gram-7 Gram/118 Ml Melita Mapap (Acetaminophen) 325 Mg Tab 325 Mg PO Q4-6H PRN Mapap (Acetaminophen) 325 Mg Tab 325 Mg PO Q4-6H PRN Zinc Sulfate 220 Mg Tab 220 Mg PO DAILY Vitamin C (Ascorbic Acid) 250 Mg Tab 500 Mg PO Vitamin C (Ascorbic Acid) 250 Mg Tab 250 Mg PO Oyster Shell Calcium (Calcium Carbonate-Cholecalciferol) 500-400 Mg-Unit Tab 1 Tab PO BID Naproxen 250 Mg Tab 250 Mg PO BID Multiple Vitamin 1 Tab 1 Tab PO DAILY Milk of Magnesia Liq (Magnesium Hydroxide) 400 Mg/5 Ml Susp 30 Ml PO ONCE Metoprolol Tartrate 100 Mg Tab 100 Mg PO BID Ammonium Lactate (Lactic Acid) 12 % Cre 1 Applic TOP BID APPLY TO: Zocor (Simvastatin) 20 Mg Tab 20 Mg PO DAILY Active Ordered Medications Current Medications Acetaminophen (Tylenol Supp) 650 mg ONCE ONCE RECTAL Last administered on 01:19; Start 06/21/17 at 01:15; Stop 06/21/17 at 01:16; Status DC Ceftriaxone Sodium 1000 mg/ Sodium Chloride 100 ml @ 200 mls/hr ONCE ONCE IV Last administered on 06/21/17 02:31; Start 06/21/17 at 02:00; Stop 06/21/17 at 02:29; Status DC Vancomycin HCl 1000 mg/Sodium Chloride 250 ml @ 250 mls/hr ONCE ONCE IV Last administered on 06/21/17 03:10; Start 06/21/17 at 02:45; Stop 06/21/17 at 03 :44; Status DC Sodium Chloride 1,000 ml @ 999 mls/hr BOLUS ONCE IV Last administered on 03:40; Start 06/21/17 at 03:00; Stop 06/21/17 at 04:00; Status DC Pharmacy Profile Note 0 ml @ 0 mls/hr UNSCH OTHER ; Start 06/21/17 at 03:15 Cefepime HCl 1000 mg/Sodium Chloride 100 ml @ 200 mls/hr Q12H IV Last administered on 06/23/17 02:38; Start 06/21/17 at 14:00; Stop 06/23/17 at 12 :34; Status DC Sodium Chloride 1,000 ml @ 42 mls/hr [id number] IV Last administered on 05:31; Start 06/21/17 at 03:07; Stop 06/24/17 at 10:35; Status DC Sodium Chloride (NS Flush) 2 ml UNSCH PRN IV FLUSH FLUSH AFTER USING IV ACCESS ; Start 06/21/17 at 03:15 Sodium Chloride (NS Flush) 2 ml BID IV FLUSH Last administered on 06/24/17 09 :05; Start 06/21/17 at 09:00 Ondansetron HCl (Zofran Inj) 4 mg Q6H PRN IVP NAUSEA OR VOMITING; Start at 03:15 Acetaminophen (Tylenol) 650 mg Q6H PRN PO FEVER; Start 06/21/17 at 03:15 Senna/Docusate Sodium (Clary-Colace) 1 tab BID PO ; Start 06/21/17 at 09:00; Status Future Hold Magnesium Hydroxide (Milk Of Magnesia Liq) 30 ml Q12H PRN PO Mild constipation ; Start 06/21/17 at 03:15 Sennosides (Senokot) 17.2 mg Q12H PRN PO Moderate constipation; Start at 03:15 Bisacodyl (Dulcolax Supp) 10 mg DAILY PRN RECTAL SEVERE CONSITIPATION/ IF NPO; Start 06/21/17 at 03:15 Lactulose (Lactulose Liq) 30 ml DAILY PRN PO SEVERE CONSITIPATION; Start 06/21 at 03:15 Vancomycin HCl 1250 mg/Sodium Chloride 262.5 ml @ 250 mls/hr Q24H IV Last administered on 06/23/17 22:22; Start 06/21/17 at 22:00; Status Future Hold Miscellaneous Information SPECIFIC LAB TO BE DRAWN:VANCOMYCIN TROUGH DATE TO... ONCE ONCE .XX Last administered on 06/23/17 21:45; Start 06/23/17 at 21:45 ; Stop 06/23/17 at 21:46; Status DC Metoprolol Tartrate (Lopressor) 25 mg Q12HR PO Last administered on 06/23/17 22:23; Start 06/21/17 at 10:00 Metronidazole (Flagyl) 500 mg Q8HR PO Last administered on 06/24/17 12:45; Start 06/23/17 at 08:00 Lactobacillus Acidophilus (Lactinex) 1 tab TID PO Last administered on 12:45; Start 06/23/17 at 09:00 Vancomycin HCl (VANCOMYCIN for oral use only) 500 mg NOW ONCE PO Last administered on 06/23/17 08:58; Start 06/23/17 at 08:15; Stop 06/23/17 at 08 :16; Status DC Vancomycin HCl (VANCOMYCIN for oral use only) 500 mg Q6H PO Last administered on 06/24/17 12:45; Start 06/23/17 at 14:00 Pharmacy Profile Note 0 ml @ 0 mls/hr UNSCH OTHER ; Start 06/23/17 at 16:00 Aspirin (Aspirin) 325 mg DAILY PO Last administered on 06/24/17 12:45; Start 06/24/17 at 10:00; Stop 06/24/17 at 15:08; Status DC Furosemide (Lasix Inj) 40 mg ONCE ONCE IV PUSH Last administered on 11:29; Start 06/24/17 at 10:30; Stop 06/24/17 at 10:33; Status DC Heparin Sodium/ Dextrose 250 ml @ 7.836 mls/ hr TITRATE IV ; Start 06/24/17 at 12:30; Stop 06/24/17 at 15:03; Status DC Family History Unobtainable from patient. Social History Records indicate previous tobacco usage. Physical Exam Vital Signs Vital Signs Date Time Temp Pulse Resp B/P (MAP) Pulse Ox O2 Delivery O2 Flow Rate FiO2 06/24/17 16:28 97.0 80 18 97/67 (77) 94 06/24/17 12:30 98 Nasal Cannula 3.00 06/24/17 08:41 97.5 76 18 96/55 (69) 99 06/24/17 07:04 98.2 85 18 101/60 (74) 96 06/24/17 01:50 86 06/24/17 00:00 98.0 78 20 98/56 (70) 95 06/23/17 21:32 93 Nasal Cannula 3.00 06/23/17 20:00 98.2 86 18 99/68 (78) 95 Physical Exam GENERAL: Very debilitated elderly appearing female lying in bed obviously confused. SKIN: Warm and dry. HEAD: Normocephalic. EYES: No scleral icterus. No injection or drainage. NECK: Supple, trachea midline. No JVD or lymphadenopathy. CARDIOVASCULAR: Regular rate and rhythm without murmurs, gallops, or rubs. RESPIRATORY: Breath sounds equal bilaterally. No accessory muscle use. GASTROINTESTINAL: Abdomen soft, non-tender, nondistended. MUSCULOSKELETAL: No cyanosis, or edema. BACK: Nontender without obvious deformity. No CVA tenderness. Laboratory Laboratory Tests Test 06/23/17 22:31 06/24/17 09:20 06/24/17 09:40 06/24/17 12:54 Magnesium Level 1.8 Vancomycin Level Trough 30.3 White Blood Count 16.7 Red Blood Count 4.08 Hemoglobin 12.0 Hematocrit 37.6 Mean Corpuscular Volume 92.3 Mean Corpuscular Hemoglobin 29.3 Mean Corpuscular Hemoglobin Concent 31.8 Red Cell Distribution Width 15.5 Platelet Count 173 Mean Platelet Volume 9.5 Neutrophils (%) (Auto) 88.9 Lymphocytes (%) (Auto) 3.6 Monocytes (%) (Auto) 7.2 Eosinophils (%) (Auto) 0.1 Basophils (%) (Auto) 0.2 Neutrophils # (Auto) 14.9 Lymphocytes # (Auto) 0.6 Monocytes # (Auto) 1.2 Eosinophils # (Auto) 0.0 Basophils # (Auto) 0.0 CBC Comment DIFF FINAL Differential Comment Blood Urea Nitrogen 43 Creatinine 2.14 Random Glucose 111 Calcium Level 8.7 Sodium Level 144 Potassium Level 3.8 Chloride Level 113 Carbon Dioxide Level 18.6 Anion Gap 12 Estimat Glomerular Filtration Rate 22 B-Type Natriuretic Peptide GREATER THAN 5000 Blood Gas Puncture Site LT BRACHIAL Blood Gas Patient Temperature 98.6 Blood Gas HCO3 19 Blood Gas Base Excess -6.3 Blood Gas Oxygen Saturation 94 Arterial Blood pH 7.31 Arterial Blood Partial Pressure CO2 38 Arterial Blood Partial Pressure O2 84 Arterial Blood Oxygen Content 15.4 Arterial Blood Carboxyhemoglobin 1.2 Arterial Blood Methemoglobin 0.7 Blood Gas Hemoglobin 11.6 Oxygen Delivery Device NASAL CANNULA Blood Gas Liter Flow 3 Prothrombin Time 21.4 Prothromb Time International Ratio 1.9 Activated Partial Thromboplast Time 33.2 D-Dimer Quantitative (PE/DVT) 6.92 Test 06/24/17 17:18 Date/Time Source Procedure Growth Status 06/21/17 00:50 Blood Peripheral Aerobic Blood Culture - Preliminary NO GROWTH IN 3 DAYS Resulted 06/21/17 00:50 Blood Peripheral Anaerobic Blood Culture - Preliminary NO GROWTH IN 3 DAYS Resulted 06/21/17 02:00 Nasal Washing Influenza Types A,B Antigen (DONATO) - Final NEGATIVE FOR FLU A AND B ANTIGEN.... Complete Result Diagram: 06/24/1791906/24/17919 Imaging Last 48 hours Impressions Renal Ultrasound 06/24/17 Signed Impressions: Service Date/Time: Saturday, June 24, 2017 16:16 - CONCLUSION: 1. The left kidney is smaller than the right. No evidence of hydronephrosis on either side. 2. Incidental note of a shadowing gallstone. Abdiel Aceves MD Head CT 06/24/17 Signed Impressions: Service Date/Time: Saturday, June 24, 2017 13:11 - CONCLUSION: 1. Tiny acute subdural hematomas within the frontal lobes bilaterally measuring 6 mm on the right and 3 mm on the left which result in no midline shift or significant mass effect on the adjacent sulci. 2. Diffuse cerebral atrophy. 3. Mild periventricular white matter small vessel ischemic changes bilaterally. Yaya Martinez MD Chest X-Ray 06/24/17 Signed Impressions: Service Date/Time: Saturday, June 24, 2017 09:53 - CONCLUSION: 1. Small right pleural effusion and tiny left pleural effusion. 2. Scattered atelectatic changes bilaterally. 3. Cardiomegaly. 4. Degenerative changes and scoliosis of the thoracolumbar spine. Yaya Martinez MD Brain MRI 06/24/17 Signed Impressions: Service Date/Time: Saturday, June 24, 2017 15:45 - CONCLUSION: 1. Interval development of multifocal acute infarcts when compared to yesterday's MRI. These are located in the posterior left occipital cortex, scattered in the posterior high parietal occipital white matter, and bilateral in the mid cerebellar hemispheres. 2. 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 There is no explanation for the density differential seen on CT scan. Recommend followup CT in one day to see if the CT finding persists. 3. The focal lesion in the posterior right temporal lobe has similar features to prior MR, probably representing a a subacute hemorrhagic infarction. Abdiel Aceves MD Brain MRI 06/23/17 Signed Impressions: Service Date/Time: Friday, June 23, 2017 15:19 - CONCLUSION: Mild interval change in the small focal area of abnormal signal in right temporal lobe most consistent with a small area of subacute infarction. Continued MR followup is recommended in 7-10 days. Monico Mendoza MD Assessment and Plan Problem List: (1) Acute kidney insufficiency ICD Codes: N28.9 - Disorder of kidney and ureter, unspecified Status: Acute Plan: Most likely secondary to intravascular volume depletion with a question of sepsis. Development of vancomycin toxicity may be superimposed. Repeat renal function panel a.m. IV fluids as ordered. Renal ultrasound as ordered. Urinalysis. Urine for eosinophils. Medications should be adjusted for the patient's estimated GFR if clinically indicated. Avoid agents with significant potential for nephrotoxicity possible including NSAIDs for analgesia, iodine contrast agents. Gadolinium is contraindicated if the GFR is below 30. (2) Hyperchloremic metabolic acidosis ICD Codes: E87.2 - Acidosis Status: Acute Plan: Most likely related to diarrhea. Sodium bicarbonate in fluids as ordered. Monitor response. Assessment and Plan This patient is very debilitated with multiple medical problems. Prognosis guarded. Neva Boo MD Jun 24, 2017 18:07
[2017-06-24] MEDS: SODIUM BICARBONATE 8.4% INJ 75 MEQ in DEXTROSE 5% IN WATE 1000ML INJ 1,000 ML IV SCH ×2 (19:11)
--- NOTE | 2017-06-24 20:53 | EKG ---
Date Performed: 06/23/2017 Time Performed: 14:10:50 PTAGE: 82 years EKG: ATRIAL FIBRILLATION LOW QRS VOLTAGE IN EXTREMITY LEADS MINIMAL ST DEPRESSION ABNORMAL RHYTH M ECG PREVIOUS TRACING : 06/06/2017 07.41 DOCTOR: Sandra Garay Interpretating Date/Time 06/24/2017 20:47:27
[2017-06-25] VITALS (7 sets, daily range): BP systolic 91–165; BP diastolic 55–87; PULSE 79–96; RESP 15–22; TEMP 97.1–98.3; O2SAT 94–99
[2017-06-25] MEDS: VANCOMYCIN 500 MG VIAL (FOR ORAL USE ONLY) PO SCH ×3 (02:00→20:00)
[2017-06-25] MEDS ORDERED: SODIUM CHLORID 0.9% 500 ML INJ 500 ML IV ONE (06:15)
[2017-06-25] MEDS: metroNIDAZOLE 500 MG TAB PO SCH (06:22)
--- NOTE | 2017-06-25 07:47 | PD.CARD.PN ---
Subjective Subjective Remarks NA Objective Medications Current Medications Medications (Trade) Dose Ordered Sig/Cheri Route Start Time Stop Time Status Last Admin (NS Flush) 2 ml UNSCH PRN IV FLUSH 06/21/17 03:15 (NS Flush) 2 ml BID IV FLUSH 06/21/17 09:00 06/24/17 20:22 (Zofran Inj) 4 mg Q6H PRN IVP 06/21/17 03:15 (Tylenol) 650 mg Q6H PRN PO 06/21/17 03:15 (Clary-Colace) 1 tab BID PO 06/21/17 09:00 Future Hold (Milk Of Magnesia Liq) 30 ml Q12H PRN PO 06/21/17 03:15 (Senokot) 17.2 mg Q12H PRN PO 06/21/17 03:15 (Dulcolax Supp) 10 mg DAILY PRN RECTAL 06/21/17 03:15 (Lactulose Liq) 30 ml DAILY PRN PO 06/21/17 03:15 Vancomycin HCl 1250 mg/Sodium Chloride 262.5 ml @ 250 mls/hr Q24H IV 06/21/17 22:00 Future Hold 06/23/17 22:22 (Lopressor) 25 mg Q12HR PO 06/21/17 10:00 06/23/17 22:23 (Flagyl) 500 mg Q8HR PO 06/23/17 08:00 06/25/17 06:22 (Lactinex) 1 tab TID PO 06/23/17 09:00 06/24/17 18:00 (VANCOMYCIN for oral use only) 500 mg Q6H PO 06/23/17 14:00 06/25/17 02:00 Pharmacy Profile Note 0 ml @ 0 mls/hr UNSCH OTHER 06/23/17 16:00 Sodium Bicarbonate 75 meq/Dextrose 1,075 ml @ 80 mls/hr [id number] IV 06/24/17 18:15 06/24/17 19:11 Vital Signs / I&O Vital Signs Date Time Temp Pulse Resp B/P (MAP) Pulse Ox O2 Delivery O2 Flow Rate FiO2 06/25/17 05:50 97.1 94 22 91/55 (67) 94 06/25/17 01:39 81 06/25/17 00:00 98.3 79 18 165/83 (110) 94 10/29/17 22:15 98 Nasal Cannula 3.00 06/24/17 20:43 98.1 103 20 114/66 (82) 94 06/24/17 18:00 94 Nasal Cannula 3.00 06/24/17 16:28 97.0 80 18 97/67 (77) 94 06/24/17 12:30 98 Nasal Cannula 3.00 06/24/17 08:41 97.5 76 18 96/55 (69) 99 I/O 06/24/17 06/24/17 06/24/17 06/25/17 06/25/17 06/25/17 07:00 15:00 23:00 07:00 15:00 23:00 Intake Total 1000 ml 60 ml 992 ml Output Total 60 ml Balance 1000 ml 60 ml 932 ml Intake Oral 60 ml 170 ml IV Total 1000 ml 822 ml Output Urine Total 60 ml Bladder Scan Volume Amount 15 ml 0 ml # Voids 3 # Bowel Movements 2 Physical Exam GENERAL: Well developed, well nourished. No acute distress. Alert not orientated , moving all extremities HEENT: Jugular venous pressure is normal. CHEST: Lungs clear, decreased in bases to auscultation bilaterally. Unlabored respiratory effort. CARDIAC: Regular rate and rhythm without S3, S4, or murmur. ABDOMEN: Soft, nontender, no hepatosplenomegaly. Bowel sounds present. EXTREMITIES: No clubbing, cyanosis Laboratory Laboratory Tests Test 06/24/17 09:20 06/24/17 09:40 06/24/17 12:54 06/24/17 17:18 White Blood Count 16.7 TH/MM3 Red Blood Count 4.08 MIL/MM3 Hemoglobin 12.0 GM/DL Hematocrit 37.6 % Mean Corpuscular Volume 92.3 FL Mean Corpuscular Hemoglobin 29.3 PG Mean Corpuscular Hemoglobin Concent 31.8 % Red Cell Distribution Width 15.5 % Platelet Count 173 TH/MM3 Mean Platelet Volume 9.5 FL Neutrophils (%) (Auto) 88.9 % Lymphocytes (%) (Auto) 3.6 % Monocytes (%) (Auto) 7.2 % Eosinophils (%) (Auto) 0.1 % Basophils (%) (Auto) 0.2 % Neutrophils # (Auto) 14.9 TH/MM3 Lymphocytes # (Auto) 0.6 TH/MM3 Monocytes # (Auto) 1.2 TH/MM3 Eosinophils # (Auto) 0.0 TH/MM3 Basophils # (Auto) 0.0 TH/MM3 CBC Comment DIFF FINAL Differential Comment Blood Urea Nitrogen 43 MG/DL Creatinine 2.14 MG/DL Random Glucose 111 MG/DL Calcium Level 8.7 MG/DL Sodium Level 144 MEQ/L Potassium Level 3.8 MEQ/L Chloride Level 113 MEQ/L Carbon Dioxide Level 18.6 MEQ/L Anion Gap 12 MEQ/L Estimat Glomerular Filtration Rate 22 ML/MIN B-Type Natriuretic Peptide GREATER THAN 5000 PG/ML Blood Gas Puncture Site LT BRACHIAL Blood Gas Patient Temperature 98.6 Blood Gas HCO3 19 mmol/L Blood Gas Base Excess -6.3 mmol/L Blood Gas Oxygen Saturation 94 % Arterial Blood pH 7.31 Arterial Blood Partial Pressure CO2 38 mmHg Arterial Blood Partial Pressure O2 84 mmHg Arterial Blood Oxygen Content 15.4 Vol % Arterial Blood Carboxyhemoglobin 1.2 % Arterial Blood Methemoglobin 0.7 % Blood Gas Hemoglobin 11.6 G/DL Oxygen Delivery Device NASAL CANNULA Blood Gas Liter Flow 3 L/M Prothrombin Time 21.4 SEC Prothromb Time International Ratio 1.9 RATIO Activated Partial Thromboplast Time 33.2 SEC D-Dimer Quantitative (PE/DVT) 6.92 MG/L FEU Lactic Acid Level 2.6 mmol/L Imaging Last 72 hours Impressions Renal Ultrasound 06/24/17 0000 Signed Impressions: Service Date/Time: Saturday, June 24, 2017 16:16 - CONCLUSION: 1. The left kidney is smaller than the right. No evidence of hydronephrosis on either side. 2. Incidental note of a shadowing gallstone. Abdiel Aceves MD Head CT 06/24/17 0000 Signed Impressions: Service Date/Time: Saturday, June 24, 2017 13:11 - CONCLUSION: 1. Tiny acute subdural hematomas within the frontal lobes bilaterally measuring 6 mm on the right and 3 mm on the left which result in no midline shift or significant mass effect on the adjacent sulci. 2. Diffuse cerebral atrophy. 3. Mild periventricular white matter small vessel ischemic changes bilaterally. Yaya Martinez MD Chest X-Ray 06/24/17 0000 Signed Impressions: Service Date/Time: Saturday, June 24, 2017 09:53 - CONCLUSION: 1. Small right pleural effusion and tiny left pleural effusion. 2. Scattered atelectatic changes bilaterally. 3. Cardiomegaly. 4. Degenerative changes and scoliosis of the thoracolumbar spine. Yaya Martinez MD Brain MRI 06/24/17 0000 Signed Impressions: Service Date/Time: Saturday, June 24, 2017 15:45 - CONCLUSION: 1. Interval development of multifocal acute infarcts when compared to yesterday's MRI. These are located in the posterior left occipital cortex, scattered in the posterior high parietal occipital white matter, and bilateral in the mid cerebellar hemispheres. 2. 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 There is no explanation for the density differential seen on CT scan. Recommend followup CT in one day to see if the CT finding persists. 3. The focal lesion in the posterior right temporal lobe has similar features to prior MR, probably representing a a subacute hemorrhagic infarction. Abdiel Aceves MD Brain MRI 06/23/17 0000 Signed Impressions: Service Date/Time: Friday, June 23, 2017 15:19 - CONCLUSION: Mild interval change in the small focal area of abnormal signal in right temporal lobe most consistent with a small area of subacute infarction. Continued MR followup is recommended in 7-10 days. Monico Mendoza MD Assessment and Plan Problem List: (1) CHF (congestive heart failure) ICD Codes: I50.9 - Heart failure, unspecified Plan: EF 55%, on BB Fluid management per nephrology (2) Atrial fibrillation ICD Codes: I48.91 - Atrial fibrillation Status: Acute Plan: reasonable rate control no anticoagulation secondary to CVA (3) Valvular disease ICD Codes: I38 - Endocarditis, valve unspecified (4) Closed head injury ICD Codes: S09.90XA - Unspecified injury of head, initial encounter Status: Acute (5) Altered mental status ICD Codes: R41.82 - Altered mental status, unspecified Status: Acute (6) Sepsis ICD Codes: A41.9 - Sepsis, unspecified organism Status: Acute (7) Multiple falls ICD Codes: R29.6 - Multiple falls Status: Acute Problem Qualifiers (1) Closed head injury: Qualified Codes: S09.90XA - Unspecified injury of head, initial encounter (2) Altered mental status: Qualified Codes: R41.82 - Altered mental status, unspecified (3) Sepsis: Qualified Codes: A41.9 - Sepsis, unspecified organism Cat Mann MD Jun 25, 2017 07:47
[2017-06-25] MEDS: SODIUM CHLORIDE 0.9% FLUSH 10 ML FLUSH IV FLUSH SCH ×2 (09:00→21:00)
--- NOTE | 2017-06-25 09:19 | HHI.PR ---
Subjective Remarks awake, laughing and crying at the same time stated her name and identified her at bedside and stated "I love you" to him not ff commands Objective Vitals Vital Signs Date Time Temp Pulse Resp B/P (MAP) Pulse Ox O2 Delivery O2 Flow Rate FiO2 06/25/17 05:50 97.1 94 22 91/55 (67) 94 06/25/17 01:39 81 06/25/17 00:00 98.3 79 18 165/83 (110) 94 06/24/17 22:15 98 Nasal Cannula 3.00 06/24/17 20:43 98.1 103 20 114/66 (82) 94 06/24/17 18:00 94 Nasal Cannula 3.00 06/24/17 16:28 97.0 80 18 97/67 (77) 94 06/24/17 12:30 98 Nasal Cannula 3.00 I/O 06/24/17 06/24/17 06/24/17 06/25/17 06/25/17 06/25/17 07:00 15:00 23:00 07:00 15:00 23:00 Intake Total 1000 ml 60 ml 992 ml Output Total 60 ml Balance 1000 ml 60 ml 932 ml Intake Oral 60 ml 170 ml IV Total 1000 ml 822 ml Output Urine Total 60 ml Bladder Scan Volume Amount 15 ml 0 ml # Voids 3 # Bowel Movements 2 Result Diagram: 06/24/1720 06/24/1720 Imaging Last Impressions Renal Ultrasound 06/24/17 0000 Signed Impressions: Service Date/Time: Saturday, June 24, 2017 16:16 - CONCLUSION: 1. The left kidney is smaller than the right. No evidence of hydronephrosis on either side. 2. Incidental note of a shadowing gallstone. Abdiel Aceves MD Head CT 06/24/17 0000 Signed Impressions: Service Date/Time: Saturday, June 24, 2017 13:11 - CONCLUSION: 1. Tiny acute subdural hematomas within the frontal lobes bilaterally measuring 6 mm on the right and 3 mm on the left which result in no midline shift or significant mass effect on the adjacent sulci. 2. Diffuse cerebral atrophy. 3. Mild periventricular white matter small vessel ischemic changes bilaterally. Yaya Martinez MD Chest X-Ray 06/24/17 0000 Signed Impressions: Service Date/Time: Saturday, June 24, 2017 09:53 - CONCLUSION: 1. Small right pleural effusion and tiny left pleural effusion. 2. Scattered atelectatic changes bilaterally. 3. Cardiomegaly. 4. Degenerative changes and scoliosis of the thoracolumbar spine. Yaya Martinez MD Brain MRI 06/24/17 0000 Signed Impressions: Service Date/Time: Saturday, June 24, 2017 15:45 - CONCLUSION: 1. Interval development of multifocal acute infarcts when compared to yesterday's MRI. These are located in the posterior left occipital cortex, scattered in the posterior high parietal occipital white matter, and bilateral in the mid cerebellar hemispheres. 2. 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 There is no explanation for the density differential seen on CT scan. Recommend followup CT in one day to see if the CT finding persists. 3. The focal lesion in the posterior right temporal lobe has similar features to prior MR, probably representing a a subacute hemorrhagic infarction. Abdiel Aceves MD Carotid Artery Ultrasound 06/22/17 0000 Signed Impressions: Service Date/Time: Thursday, June 22, 2017 10:59 - CONCLUSION: 1. Calcified plaque more abundant on the left. Although there is mild elevation of the velocities of the distal ICAs this is largely in part due to tortuosity of the vessels. No hemodynamically significant stenosis felt present. 2. Antegrade flow involving both vertebral arteries. Abdiel Nelson Jr., MD Cervical Spine CT 06/21/17 0000 Signed Impressions: Service Date/Time: May 01:44 - CONCLUSION: Minimal anterolisthesis C3 on C4 and C4 on C5 no fracture.. Porter Esquivel MD Objective Remarks dysarthric,not ff commands, stated her name, 's name, no temporal tenderness, superficial light bruise--resolved anicteric, pupils equal no facial asymmetry, no nuchal rigidity lungs- no rales regular rhythm on exam abdomen soft, nontender motor- moves UE-flailing left upper extremity, some spontaenousl movement of the right UE- not consistent though right sided - 0/5 grossly no sensory deficits DTRs + A/P Problem List: (1) Fall ICD Code: W19.XXXA - Unspecified fall, initial encounter (2) Sepsis ICD Code: A41.9 - Sepsis, unspecified organism Status: Acute (3) Cellulitis of right leg ICD Code: L03.115 - Cellulitis of right lower limb Status: Acute (4) Encephalopathy ICD Code: G93.40 - Encephalopathy, unspecified (5) Renal insufficiency ICD Code: N28.9 - Disorder of kidney and ureter, unspecified Assessment and Plan 82-year-old female with a PMH of Anxiety, Depression, HTN, Hyperlipidemia, Dementia and Valve Replacement who was sent from SNF secondary to fall w/ head trauma and AMS Acute to subacute infarction- right temporal lobe area - admitted 06/21- MRI with multiple infarcts- MS awke but confused baseline dementia S/P Fall: s/p fall out of bed, +head trauma,- superficial temporal contusion- almost resolved repeat head CT now ASpirin now. Neurology consulted Insert NGT for meds and feedings Acute respiratory Failure- likely fluid overload- Sats better continue gentle diuresis with monitoring of renal functions Acute KI with underlying CKD - nephrology ff History of atrial fibrillation- telemetry- intermittent a fib continue on BB- low dose was on coumadin as OP- held due to recent fall with reported left temporal area superficial hematoma/contusion - DR. 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 Schwab 06/23 C diff diarrhea- no reported episodes by staff on Vancomycin and po Flagyl Venous stasis changes:no erythema. No obvious signs of infection at this time. no chemical anticoagulation with small subdural hematomas on repeat head CT d/w - agrees to NGT for now continue medical management no aggressive measures leaning towards hospice Problem Qualifiers (1) Sepsis: Qualified Codes: A41.9 - Sepsis, unspecified organism Sam Rouse MD Jun 25, 2017 09:19
--- NOTE | 2017-06-25 10:18 | RADRPT ---
EXAM DATE/TIME: 06/25/2017 09:35 [facility] COMPARISON: CT BRAIN W/O CONTRAST, June 24, 2017, 13:11. INDICATIONS : Altered mental status. RADIATION DOSE: 56.35 CTDIvol (mGy) MEDICAL HISTORY : Hypertension. Chronic obstructive pulmonary disease. SURGICAL HISTORY : None. ENCOUNTER: Initial ACUITY: 1 day PAIN SCALE: 0/10 LOCATION: cranial TECHNIQUE: Multiple contiguous axial images were obtained of the head. Using automated exposure control and adj ustment of the mA and/or kV according to patient size, radiation dose was kept as low as reasonably a chievable to obtain optimal diagnostic quality images. DICOM format image data is available electro nically for review and comparison. FINDINGS: Again seen are the small bilateral subdural hematomas described on 2916 is stable in the interval. There is moderate central and cortical atrophy. There is no parenchymal hemorrhage. The posterior fossa is unremarkable. There is no evidence of skull fracture.. CONCLUSION: Atrophy with stable small subdural hematomas. Niraj Ku MD FACR on June 25, 2017 at 10:13 Board Certified Radiologist. This report was verified electronically.
[2017-06-25 11:36] LABS: AUTOMATED NEUTROPHIL # 14.4 TH/MM3 (1.8-7.7); BASOPHIL % 0.2 % (0.0-2.0); EOSINOPHIL # 0.1 TH/MM3 (0-0.4); EOSINOPHIL % 0.7 % (0.0-4.0); HEMATOCRIT 37.2 % (35.0-46.0); HEMO FLAGS DIFF FINAL; LYMPH % 7.9 % (9.0-44.0); LYMPHOCYTE # 1.3 TH/MM3 (1.0-4.8); MEAN CELL VOLUME 91.2 FL (80.0-100.0); MEAN CORPUSCULAR HEMOGLOBIN 29.3 PG (27.0-34.0); MEAN CORPUSCULAR HGB CONC 32.1 % (32.0-36.0); MONO % 4.9 % (0.0-8.0); NEUT % 86.3 % (16.0-70.0); PLATELET COUNT 163 TH/MM3 (150-450); RED BLOOD COUNT 4.08 MIL/MM3 (4.00-5.30); RED CELL DISTRIBUTION WIDTH 15.7 % (11.6-17.2); WHITE BLOOD COUNT 16.7 TH/MM3 (4.0-11.0)
[2017-06-25 11:53] LABS: BICARBONATE 20.9 MEQ/L (21.0-32.0); POTASSIUM 3.4 MEQ/L (3.5-5.1)
--- NOTE | 2017-06-25 12:23 | HHI.PR ---
Subjective Remarks confused at bedside hospice will evaluate as per no ng tube. Objective Vital Signs Date Time Temp Pulse Resp B/P (MAP) Pulse Ox O2 Delivery O2 Flow Rate FiO2 06/25/17 08:00 97.2 88 15 102/59 (73) 94 06/25/17 05:50 97.1 94 22 91/55 (67) 94 06/25/17 01:39 81 06/25/17 00:00 98.3 79 18 165/83 (110) 94 06/24/17 22:15 98 Nasal Cannula 3.00 06/24/17 20:43 98.1 103 20 114/66 (82) 94 06/24/17 18:00 94 Nasal Cannula 3.00 06/24/17 16:28 97.0 80 18 97/67 (77) 94 06/24/17 12:30 98 Nasal Cannula 3.00 I/O 06/24/17 06/24/17 06/24/17 06/25/17 06/25/17 06/25/17 07:00 15:00 23:00 07:00 15:00 23:00 Intake Total 1000 ml 60 ml 992 ml Output Total 60 ml Balance 1000 ml 60 ml 932 ml Intake Oral 60 ml 170 ml IV Total 1000 ml 822 ml Output Urine Total 60 ml Bladder Scan Volume Amount 15 ml 0 ml # Voids 3 # Bowel Movements 2 confused speaking gibberish right hemiparesis not following Result Diagram: 06/25/17 1048 06/25/17 1048 Imaging mri c/w with multiple small infarct b/l likely embolic ct shows hygroma Assessment and Plan Assessment and Plan b/l strokes likely embolic renal insufficiency. dementia -hospice to see no AC to be restarted at this point per husbands wishes. will sign off. Montse Bach MD Jun 25, 2017 12:23
--- NOTE | 2017-06-25 12:26 | HHI.NPPN ---
Subjective History of Present Illness This patient is an 82-year-old female with a history of hypertension, coronary disease and dementia as well as atrial fibrillation admitted to this institution on June 21 after sustaining a fall. Being treated for cellulitis of the leg. Ejection fraction said to be 55-60% this admission. Previous serum creatinine levels were within normal range although one recently was elevated several days prior to this admission. Patient evaluated by infectious disease for clostridium difficile as well as sepsis. She was having diarrhea. Patient's serum creatinine level was 1.38 at the time of presentation deteriorating to 2.14 date of consultation. Bicarbonate level also had been falling these last few days with hypotension. 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 Interval History Patient remains confused. Objective Data Data Vital Signs Date Time Temp Pulse Resp B/P (MAP) Pulse Ox O2 Delivery O2 Flow Rate FiO2 06/25/17 08:00 97.2 88 15 102/59 (73) 94 06/25/17 05:50 97.1 94 22 91/55 (67) 94 06/25/17 01:39 81 06/25/17 00:00 98.3 79 18 165/83 (110) 94 06/24/17 22:15 98 Nasal Cannula 3.00 06/24/17 20:43 98.1 103 20 114/66 (82) 94 06/24/17 18:00 94 Nasal Cannula 3.00 06/24/17 16:28 97.0 80 18 97/67 (77) 94 06/24/17 12:30 98 Nasal Cannula 3.00 -: 06/25/17 1048 06/25/17 1048 Microbiology 06/25/17 Aerobic Blood Culture, Received Pending 06/25/17 Anaerobic Blood Culture, Received Pending 06/25/17 Aerobic Blood Culture, Received Pending 06/25/17 Anaerobic Blood Culture, Received Pending Physical Exam General Appearance: Comfortable Eyes Eye Exam: Sclera White Pulmonary Resp Exam: Clear Bilaterally, Breath Sounds Equal, No Distress Cardiology CV Exam: Regular, Normal Sinus Rhythm Gastrointestinal/Abdomen GI Exam: Soft, Non-Tender Integumentary Skin Exam: Clear, Warm Extremeties Extremities Exam: No Edema Neurologic Neuro Exam: Awake Neuro Remarks Patient confused. Assessment/Plan Problem List: (1) Acute kidney insufficiency ICD Codes: N28.9 - Disorder of kidney and ureter, unspecified Status: Acute Plan: Unfortunately renal indices continue to deteriorate despite IV hydration. Renal ultrasound shows no evidence of obstruction. Patient has intrinsic kidney injury possibly related to infection and vancomycin. Patient is a very poor dialysis candidate. She appears to be very debilitated with significant advanced dementia. wants no aggressive intervention which appears appropriate and hospice has been counseled it. We'll sign off at this point in time. Thanks. Medications should be adjusted for the patient's estimated GFR if clinically indicated. Avoid agents with significant potential for nephrotoxicity possible including NSAIDs for analgesia, iodine contrast agents. Gadolinium is contraindicated if the GFR is below 30. (2) Hyperchloremic metabolic acidosis ICD Codes: E87.2 - Acidosis Status: Acute Plan: Most likely related to diarrhea. Sodium bicarbonate in fluids as ordered. Monitor response. Neva Boo MD Jun 25, 2017 12:26
--- NOTE | 2017-06-25 14:18 | HHI.IDPN ---
Subjective Subjective Remarks C.diff + cont ti have diarrhea Over w/e deteriration of mental status, imaging studies with mul t new strokes blood clx negative no fever WBC down In rennal failure 2 D echo done - no vegetations Antibiotics vancomycin po flagyl po Allergies: Coded Allergies: diatrizoate meglumine (Verified Allergy, Severe, 06/21/17) gadobenic acid (Verified Allergy, Severe, 06/21/17) gadodiamide (Verified Allergy, Severe, 06/21/17) gadoteridol (Verified Allergy, Severe, 06/21/17) iodixanol (Verified Allergy, Severe, 06/21/17) iohexol (Verified Allergy, Severe, 06/21/17) benazepril (Verified Allergy, Mild, RESPIRATORY, 06/21/17) captopril (Verified Allergy, Mild, RESPIRATORY, 06/21/17) enalaprilat (Verified Allergy, Mild, RESPIRATORY, 06/21/17) fosinopril (Verified Allergy, Mild, RESPIRATORY, 06/21/17) lisinopril (Verified Allergy, Mild, RESPIRATORY, 06/21/17) quinapril (Verified Allergy, Mild, RESPIRATORY, 06/21/17) Objective . Vital Signs Date Time Temp Pulse Resp B/P (MAP) Pulse Ox O2 Delivery O2 Flow Rate FiO2 06/25/17 12:00 98.2 96 15 113/58 (76) 96 06/25/17 08:00 97.2 88 15 102/59 (73) 94 06/25/17 05:50 97.1 94 22 91/55 (67) 94 06/25/17 01:39 81 06/25/17 00:00 98.3 79 18 165/83 (110) 94 06/24/17 22:15 98 Nasal Cannula 3.00 06/24/17 20:43 98.1 103 20 114/66 (82) 94 06/24/17 18:00 94 Nasal Cannula 3.00 06/24/17 16:28 97.0 80 18 97/67 (77) 94 . Laboratory Tests Test 06/24/17 09:20 06/25/17 10:48 White Blood Count 16.7 TH/MM3 16.7 TH/MM3 Red Blood Count 4.08 MIL/MM3 4.08 MIL/MM3 Hemoglobin 12.0 GM/DL 11.9 GM/DL Hematocrit 37.6 % 37.2 % Mean Corpuscular Volume 92.3 FL 91.2 FL Mean Corpuscular Hemoglobin 29.3 PG 29.3 PG Mean Corpuscular Hemoglobin Concent 31.8 % 32.1 % Red Cell Distribution Width 15.5 % 15.7 % Platelet Count 173 TH/MM3 163 TH/MM3 Mean Platelet Volume 9.5 FL 9.6 FL Neutrophils (%) (Auto) 88.9 % 86.3 % Lymphocytes (%) (Auto) 3.6 % 7.9 % Monocytes (%) (Auto) 7.2 % 4.9 % Eosinophils (%) (Auto) 0.1 % 0.7 % Basophils (%) (Auto) 0.2 % 0.2 % Neutrophils # (Auto) 14.9 TH/MM3 14.4 TH/MM3 Lymphocytes # (Auto) 0.6 TH/MM3 1.3 TH/MM3 Monocytes # (Auto) 1.2 TH/MM3 0.8 TH/MM3 Eosinophils # (Auto) 0.0 TH/MM3 0.1 TH/MM3 Basophils # (Auto) 0.0 TH/MM3 0.0 TH/MM3 CBC Comment DIFF FINAL DIFF FINAL Differential Comment Laboratory Tests Test 06/23/17 22:31 06/24/17 09:20 06/24/17 17:18 06/25/17 10:48 Magnesium Level 1.8 MG/DL Blood Urea Nitrogen 43 MG/DL 45 MG/DL Creatinine 2.14 MG/DL 2.68 MG/DL Random Glucose 111 MG/DL 119 MG/DL Calcium Level 8.7 MG/DL 8.5 MG/DL Sodium Level 144 MEQ/L 143 MEQ/L Potassium Level 3.8 MEQ/L 3.4 MEQ/L Chloride Level 113 MEQ/L 111 MEQ/L Carbon Dioxide Level 18.6 MEQ/L 20.9 MEQ/L Anion Gap 12 MEQ/L 11 MEQ/L Estimat Glomerular Filtration Rate 22 ML/MIN 17 ML/MIN B-Type Natriuretic Peptide GREATER THAN 5000 PG/ML Lactic Acid Level 2.6 mmol/L 2.1 mmol/L 25-Hydroxy Vitamin D Total 31.4 ng/ML Microbiology Date/Time Source Procedure Growth Status 06/25/17 10:48 Blood Peripheral Aerobic Blood Culture Pending Received 06/25/17 10:48 Blood Peripheral Anaerobic Blood Culture Pending Received 06/25/17 10:40 Blood Peripheral Aerobic Blood Culture Pending Received 06/25/17 10:40 Blood Peripheral Anaerobic Blood Culture Pending Received Imaging Last Impressions Head CT 06/25/17 0000 Signed Impressions: Service Date/Time: Sunday, June 25, 2017 09:35 - CONCLUSION: Atrophy with stable small subdural hematomas. Niraj Ku MD FACR Renal Ultrasound 06/24/17 0000 Signed Impressions: Service Date/Time: Saturday, June 24, 2017 16:16 - CONCLUSION: 1. The left kidney is smaller than the right. No evidence of hydronephrosis on either side. 2. Incidental note of a shadowing gallstone. Abidel Aceves MD Chest X-Ray 06/24/17 Signed Impressions: Service Date/Time: Saturday, June 24, 2017 09:53 - CONCLUSION: 1. Small right pleural effusion and tiny left pleural effusion. 2. Scattered atelectatic changes bilaterally. 3. Cardiomegaly. 4. Degenerative changes and scoliosis of the thoracolumbar spine. Yaya Martinez MD Brain MRI 06/24/17 Signed Impressions: Service Date/Time: Saturday, June 24, 2017 15:45 - CONCLUSION: 1. Interval development of multifocal acute infarcts when compared to yesterday's MRI. These are located in the posterior left occipital cortex, scattered in the posterior high parietal occipital white matter, and bilateral in the mid cerebellar hemispheres. 2. 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 There is no explanation for the density differential seen on CT scan. Recommend followup CT in one day to see if the CT finding persists. 3. The focal lesion in the posterior right temporal lobe has similar features to prior MR, probably representing a a subacute hemorrhagic infarction. Abdiel Aceves MD Carotid Artery Ultrasound 06/22/17 0000 Signed Impressions: Service Date/Time: Thursday, June 22, 2017 10:59 - CONCLUSION: 1. Calcified plaque more abundant on the left. Although there is mild elevation of the velocities of the distal ICAs this is largely in part due to tortuosity of the vessels. No hemodynamically significant stenosis felt present. 2. Antegrade flow involving both vertebral arteries. Abdiel Nelson Jr., MD Cervical Spine CT 06/21/17 0000 Signed Impressions: Service Date/Time: May 01:44 - CONCLUSION: Minimal anterolisthesis C3 on C4 and C4 on C5 no fracture.. Porter Esquivel MD Physical Exam CONSTITUTIONAL/GENERAL: This is an adequately nourished elderly patient, in no apparent distress. TUBES/LINES/DRAINS: SKIN: No jaundice, rashes, or lesions. Skin temperature appropriate. Not diaphoretic. EYES: Pupils equal and round and reactive. Extraocular motions intact. No scleral icterus. No injection or drainage. Fundi not examined. ENT: Hearing grossly normal. Nose without bleeding or purulent drainage. Oral mucosae without visible erythema, exudates, masses, or lesions. CARDIOVASCULAR: Regular rate and rhythm without murmurs, gallops, or rubs. No JVD. Peripheral pulses symmetric. RESPIRATORY/CHEST: Symmetric, unlabored respirations. Clear to auscultation. Breath sounds equal bilaterally. No wheezes, rales, or rhonchi. GASTROINTESTINAL: Abdomen soft, non-tender, nondistended. No hepato-splenomegaly , or palpable masses. No guarding. Bowel sounds present. GENITOURINARY: Without palpable bladder distension. Blackman in place with dark yellow urine, smal amount MUSCULOSKELETAL: Extremities without clubbing,, or edema. + chronic dyscoloration of BLE NEUROLOGICAL: Awake and alert. Disarthric. 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
[2017-06-25] MEDS: METOPROLOL TARTRATE 25 MG TAB PO SCH (21:00)
[2017-06-26 01:16] VITALS: BP 101/57; PULSE 94; RESP 20; TEMP 98.4; O2SAT 93
[2017-06-26] MEDS: VANCOMYCIN 500 MG VIAL (FOR ORAL USE ONLY) PO SCH (02:00)
[2017-06-26] MEDS: SODIUM BICARBONATE 8.4% INJ 75 MEQ in DEXTROSE 5% IN WATE 1000ML INJ 1,000 ML IV SCH ×2 (02:19)
[2017-06-26 04:08] VITALS: BP 104/42; PULSE 138; RESP 22; TEMP 96.7; O2SAT 94
[2017-06-26] MEDS ORDERED: diphenhydrAMINE HCL 50 MG/ML VIAL IV PUSH ONE (04:15)
[2017-06-26 07:18] VITALS: PULSE 113
[2017-06-26 09:36] VITALS: BP 105/70; PULSE 131; RESP 18; TEMP 97.5; O2SAT 99
[2017-06-26 12:31] VITALS: BP 110/65; PULSE 128; RESP 18; TEMP 97.8; O2SAT 98
--- NOTE | 2017-06-26 12:54 | HHI.PR ---
Subjective Remarks drowsy, persistently confused, not ff commands very dysarthric Objective Vitals Vital Signs Date Time Temp Pulse Resp B/P (MAP) Pulse Ox O2 Delivery O2 Flow Rate FiO2 06/26/17 12:31 97.8 128 18 110/65 (80) 98 06/26/17 09:36 97.5 131 18 105/70 (82) 99 06/26/17 07:18 113 06/26/17 06:26 Nasal Cannula 3.00 06/26/17 04:08 96.7 138 22 104/42 (62) 94 06/26/17 01:16 98.4 94 20 101/57 (72) 93 06/25/17 21:02 97.8 86 18 115/72 (86) 98 06/25/17 16:00 97.7 87 15 131/87 (102) 99 I/O 06/25/17 06/25/17 06/25/17 06/26/17 06/26/17 06/26/17 07:00 15:00 23:00 07:00 15:00 23:00 Intake Total 992 ml 732 ml Output Total 60 ml 100 ml Balance 932 ml 632 ml Intake Oral 170 ml IV Total 822 ml 732 ml Output Urine Total 60 ml 100 ml Bladder Scan Volume Amount 15 ml 0 ml # Bowel Movements 4 Result Diagram: 06/25/17 1048 06/25/17 1048 Imaging Last Impressions Head CT 06/25/17 0000 Signed Impressions: Service Date/Time: Sunday, June 25, 2017 09:35 - CONCLUSION: Atrophy with stable small subdural hematomas. Niraj Ku MD FACR Renal Ultrasound 06/24/17 0000 Signed Impressions: Service Date/Time: Saturday, June 24, 2017 16:16 - CONCLUSION: 1. The left kidney is smaller than the right. No evidence of hydronephrosis on either side. 2. Incidental note of a shadowing gallstone. Abdiel Aceves MD Chest X-Ray 06/24/17 0000 Signed Impressions: Service Date/Time: Saturday, June 24, 2017 09:53 - CONCLUSION: 1. Small right pleural effusion and tiny left pleural effusion. 2. Scattered atelectatic changes bilaterally. 3. Cardiomegaly. 4. Degenerative changes and scoliosis of the thoracolumbar spine. Yaya Martinez MD Brain MRI 06/24/17 0000 Signed Impressions: Service Date/Time: Saturday, June 24, 2017 15:45 - CONCLUSION: 1. Interval development of multifocal acute infarcts when compared to yesterday's MRI. These are located in the posterior left occipital cortex, scattered in the posterior high parietal occipital white matter, and bilateral in the mid cerebellar hemispheres. 2. 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 There is no explanation for the density differential seen on CT scan. Recommend followup CT in one day to see if the CT finding persists. 3. The focal lesion in the posterior right temporal lobe has similar features to prior MR, probably representing a a subacute hemorrhagic infarction. Abdiel Aceves MD Carotid Artery Ultrasound 06/22/17 0000 Signed Impressions: Service Date/Time: Thursday, June 22, 2017 10:59 - CONCLUSION: 1. Calcified plaque more abundant on the left. Although there is mild elevation of the velocities of the distal ICAs this is largely in part due to tortuosity of the vessels. No hemodynamically significant stenosis felt present. 2. Antegrade flow involving both vertebral arteries. Abdiel Nelson Jr., MD Cervical Spine CT 06/21/17 0000 Signed Impressions: Service Date/Time: May 01:44 - CONCLUSION: Minimal anterolisthesis C3 on C4 and C4 on C5 no fracture.. Porter Esquivel MD Objective Remarks dysarthric,not ff commands, stated her name, 's name, no temporal tenderness, superficial light bruise--resolved anicteric, pupils equal no facial asymmetry, no nuchal rigidity lungs- no rales regular rhythm on exam abdomen soft, nontender motor- moves UE-flailing left upper extremity, some spontaenous movement of the right UE- not consistent though right sided - 0/5 grossly no sensory deficits DTRs + Urinary Catheter: Yes Assessment to: Continue Blackman insert reason: Measure Accurate Output A/P Problem List: (1) Fall ICD Code: W19.XXXA - Unspecified fall, initial encounter (2) Sepsis ICD Code: A41.9 - Sepsis, unspecified organism Status: Acute (3) Cellulitis of right leg ICD Code: L03.115 - Cellulitis of right lower limb Status: Acute (4) Encephalopathy ICD Code: G93.40 - Encephalopathy, unspecified (5) Renal insufficiency ICD Code: N28.9 - Disorder of kidney and ureter, unspecified Assessment and Plan 82-year-old female with a PMH of Anxiety, Depression, HTN, Hyperlipidemia, Dementia and Valve Replacement who was sent from SNF secondary to fall w/ head trauma and AMS Acute to subacute infarction- right temporal lobe area - admitted 06/21- MRI with multiple infarcts- MS awke but confused baseline dementia S/P Fall: s/p fall out of bed, +head trauma,- superficial temporal contusion- almost resolved repeat head CT now ASpirin now. Neurology consulted Insert NGT for meds and feedings Acute respiratory Failure- likely fluid overload- Sats better hold diureeis with worsening renal functions Acute KI with underlying CKD - nephrology ff History of atrial fibrillation- telemetry- intermittent a fib continue on BB- low dose was on coumadin as OP- held due to recent fall with reported left temporal area superficial hematoma/contusion - DR. Mann ff- coumadin with CT findings Fever, MS change, leukocytosis r/o sepsis possible prosthetic valve endocarditis - SIRS: T down Blood Cultures pending- negative so far On IV vancomycin - pharmacy dosing- d/w pharmacist ID ff DC Cefepime- with C diff - C diff diarrhea- no reported episodes by staff on Vancomycin and po Flagyl Venous stasis changes:no erythema. No obvious signs of infection at this time. no chemical anticoagulation with small subdural hematomas on repeat head CT d/w - seen by Hospice discharge to Hospice care center today Problem Qualifiers (1) Sepsis: Qualified Codes: A41.9 - Sepsis, unspecified organism Sam Rouse MD Jun 26, 2017 12:54
--- NOTE | 2017-06-26 12:56 | HHI.DS ---
Discharge Summary Admission Date Jun 21, 2017 at 03:11 Discharge Date: Jun 26, 2017 Admitting Diagnosis sepsis, closed head injury, altered mental status, cellulitis (1) Fall ICD Code: W19.XXXA - Unspecified fall, initial encounter (2) Sepsis ICD Code: A41.9 - Sepsis, unspecified organism Status: Acute (3) Cellulitis of right leg ICD Code: L03.115 - Cellulitis of right lower limb Status: Acute (4) Encephalopathy ICD Code: G93.40 - Encephalopathy, unspecified (5) Renal insufficiency ICD Code: N28.9 - Disorder of kidney and ureter, unspecified Brief History - From Admission This is an 82-year-old female with a PMH of Anxiety, Depression, HTN, Hyperlipidemia, Dementia and Valve Replacement who was brought to the ER by EMS from SNF secondary to fall w/ head trauma and AMS. Per report, pt had fallen out of bed earlier tonight, sustained left forehead contusion, shortly afterwards was noted to have AMS. On arrival, pt oriented to person/place. Unable to provide much history, but has no complaints. BP 97/55, HR 64, O2 sat 95% on RA, Temp 101.1 Rectal. WBC 19. Creatinine 1.38, previously 2.0 on 06/06. INR 1.3. UA with small LE, mild bacteriuria. CT Head/C-spine with no acute findings. CXR with small right pleural effusion and probable right base atelectasis. On exam, pt noted to have RLE Cellulitis. S/p Blood Cultures, Vanc/Zosyn in ER. CBC/BMP: 06/25/17 1048 06/25/17 1048 Significant Findings Laboratory Tests Test 06/23/17 13:45 06/23/17 22:31 06/24/17 09:20 06/24/17 09:40 Mean Corpuscular Hemoglobin Concent 31.5 % (32.0-36.0) 31.8 % (32.0-36.0) Neutrophils (%) (Auto) 82.0 % (16.0-70.0) 88.9 % (16.0-70.0) Neutrophils # (Auto) 8.0 TH/MM3 (1.8-7.7) 14.9 TH/MM3 (1.8-7.7) Blood Urea Nitrogen 41 MG/DL (7-18) 43 MG/DL (7-18) Creatinine 1.75 MG/DL (0.50-1.00) 2.14 MG/DL (0.50-1.00) Random Glucose 139 MG/DL (74-106) 111 MG/DL (74-106) Calcium Level 8.1 MG/DL (8.5-10.1) Chloride Level 112 MEQ/L (98-107) 113 MEQ/L (98-107) Carbon Dioxide Level 19.0 MEQ/L (21.0-32.0) 18.6 MEQ/L (21.0-32.0) Estimat Glomerular Filtration Rate 28 ML/MIN (>89) 22 ML/MIN (>89) Vancomycin Level Trough 30.3 MCG/ML (5.0-10.0) White Blood Count 16.7 TH/MM3 (4.0-11.0) Lymphocytes (%) (Auto) 3.6 % (9.0-44.0) Lymphocytes # (Auto) 0.6 TH/MM3 (1.0-4.8) Monocytes # (Auto) 1.2 TH/MM3 (0-0.9) B-Type Natriuretic Peptide GREATER THAN 5000 PG/ML Blood Gas HCO3 19 mmol/L (22-26) Blood Gas Base Excess -6.3 mmol/L (-2-2) Arterial Blood pH 7.31 (7.380-7.420) Blood Gas Hemoglobin 11.6 G/DL (12.0-16.0) Test 06/24/17 12:54 06/24/17 17:18 06/25/17 10:48 06/25/17 19:06 Prothrombin Time 21.4 SEC (9.8-11.6) Activated Partial Thromboplast Time 33.2 SEC (24.3-30.1) D-Dimer Quantitative (PE/DVT) 6.92 MG/L FEU (0.00-0.50) Lactic Acid Level 2.6 mmol/L (0.4-2.0) 2.1 mmol/L (0.4-2.0) White Blood Count 16.7 TH/MM3 (4.0-11.0) Neutrophils (%) (Auto) 86.3 % (16.0-70.0) Lymphocytes (%) (Auto) 7.9 % (9.0-44.0) Neutrophils # (Auto) 14.4 TH/MM3 (1.8-7.7) Blood Urea Nitrogen 45 MG/DL (7-18) Creatinine 2.68 MG/DL (0.50-1.00) Random Glucose 119 MG/DL (74-106) Potassium Level 3.4 MEQ/L (3.5-5.1) Chloride Level 111 MEQ/L (98-107) Carbon Dioxide Level 20.9 MEQ/L (21.0-32.0) Estimat Glomerular Filtration Rate 17 ML/MIN (>89) PE at Discharge dysarthric,not ff commands, stated her name, 's name, no temporal tenderness, superficial light bruise--resolved anicteric, pupils equal no facial asymmetry, no nuchal rigidity lungs- no rales regular rhythm on exam abdomen soft, nontender motor- moves UE-flailing left upper extremity, some spontaenous movement of the right UE- not consistent though right sided - 0/5 grossly no sensory deficits DTRs + Pt Condition on Discharge: Guarded Discharge Disposition: Hospice/Med Facility Discharge Time: > 30 minutes Discharge Instructions DIET: Follow Instructions for: Nothing By Mouth Additional Diet Instructions: please do bedside swallowing evaluation on arrival to care enter Activities you can perform: Continue Bedrest Sam Rouse MD Jun 26, 2017 12:56
== END 2017-06-26 16:09 | disposition hospice, inpatient (51) | DRG 871 ==
LOC: NEPC 00:10 → NEDA 03:11 → NEPGCP 03:52 → N05A 06-22 00:05
PROVIDERS: ADMIT Hospitalist; ATTEND Hospitalist
DX: A41.9 Sepsis, unspecified organism (principal); G93.41 Metabolic encephalopathy; I63.40 Cerebral infarction due to embolism of unspecified cerebral artery; J96.00 Acute respiratory failure, unspecified whether with hypoxia or hypercapnia; N17.9 Acute kidney failure, unspecified; A04.72 Enterocolitis due to Clostridium difficile, not specified as recurrent; E87.2 Acidosis; I50.9 Heart failure, unspecified; I48.91 Unspecified atrial fibrillation; E86.9 Volume depletion, unspecified; G81.91 Hemiplegia, unspecified affecting right dominant side; L03.115 Cellulitis of right lower limb; J98.11 Atelectasis; I13.0 Hypertensive heart and chronic kidney disease with heart failure and stage 1 through stage 4 chronic kidney disease, or unspecified chronic kidney disease; F03.90 Unspecified dementia, unspecified severity, without behavioral disturbance, psychotic disturbance, mood disturbance, and anxiety; E87.8 Other disorders of electrolyte and fluid balance, not elsewhere classified; R47.1 Dysarthria and anarthria; I87.8 Other specified disorders of veins; N18.9 Chronic kidney disease, unspecified; E78.5 Hyperlipidemia, unspecified; I25.10 Atherosclerotic heart disease of native coronary artery without angina pectoris; R82.71 Bacteriuria; M19.90 Unspecified osteoarthritis, unspecified site; R29.6 Repeated falls; F32.9 Major depressive disorder, single episode, unspecified; F41.9 Anxiety disorder, unspecified; S00.83XA Contusion of other part of head, initial encounter; W06.XXXA Fall from bed, initial encounter; Z85.41 Personal history of malignant neoplasm of cervix uteri; Z87.891 Personal history of nicotine dependence; Y92.129 Unspecified place in nursing home as the place of occurrence of the external cause; Z95.1 Presence of aortocoronary bypass graft; Z95.2 Presence of prosthetic heart valve
CPT/HCPCS: 36600; 70450; 70551; 71010; 72125; 76775; 76937; 80048; 80053; 80202; 80307; 81001; 82140; 82306; 82550; 82805; 83605; 83735; 83880; 84443; 84484; 85025; 85379; 85610; 85730; 87040; 87493; 87804; 93005; 93306; 93880; 96365; J0692; J0696; J1200; J1940; J3370; J7030; J7050; J7070; P9612